=== PATIENT | female | born 1975 | race Two or more races ===

== ENCOUNTER → 2020-07-28 15:06 | Outpatient (BNVA) | payer MEDICAID, SELFPAY | PROVIDERS: PCP Nurse Practitioner Family; Referring Provider Nurse Practitioner Family; Visit Provider Obstetrics & Gynecology | DX: Z01.419 Encounter for gynecological examination (general) (routine) without abnormal findings (principal) | CPT/HCPCS: 99213 ==

== ENCOUNTER 2021-09-13 14:58 | Outpatient (REF) | payer MEDICAID, SELFPAY ==
--- NOTE | ~2021-09-13 | XR_ITS ---
EXAMINATION: XR FOOT, RIGHT CLINICAL INFORMATION: Right foot pain COMPARISON: None TECHNIQUE: AP, lateral, and oblique views of the right foot. FINDINGS: The bones and soft tissues are normal. No fracture. Alignment is anatomic. Joint spaces are maintained. XR/XR foot RT min 3V IMPRESSION: Normal right foot.
== END 2021-09-13 14:59 | disposition home or self-care (01) ==
LOC: HO.XRAY 14:58
PROVIDERS: Absent Provider Nurse Practitioner Family; PCP Nurse Practitioner Family; Visit Provider Registered Nurse Community Health
DX: M79.671 Pain in right foot (principal)
CPT/HCPCS: 73630

== ENCOUNTER → 2021-10-02 10:50 | Outpatient (BNVA) | payer MEDICAID, SELFPAY | PROVIDERS: PCP Nurse Practitioner Family; Referring Provider Nurse Practitioner Family; Visit Provider Nurse Practitioner | DX: K21.9 Gastro-esophageal reflux disease without esophagitis (principal); K59.00 Constipation, unspecified; D64.9 Anemia, unspecified; R14.0 Abdominal distension (gaseous); Z86.19 Personal history of other infectious and parasitic diseases; Z80.0 Family history of malignant neoplasm of digestive organs | CPT/HCPCS: 99212 ==

== ENCOUNTER 2022-03-21 12:04 | Outpatient (REF) | payer MEDICAID, SELFPAY ==
--- NOTE | ~2022-03-21 | US_ITS ---
EXAMINATION: US THYROID CLINICAL INFORMATION: Patient feels lump in neck over thyroid, nontoxic nodule. COMPARISON: None TECHNIQUE: Linear transducer grayscale and color Doppler examination with attention to the region of the thyroid. FINDINGS: SIZE: Measurements of the thyroid lobes and nodules are given in sagittal, anteroposterior and transverse dimensions respectively. Right Thyroid Lobe: 4.5 x 1.8 x 1.9 cm, volume 8.1 mL. Parenchyma: The gland echotexture is homogeneous. Thyroid vascularity is normal. Left Thyroid Lobe: 4.1 x 1.5 x 1.7 cm, volume 5.3 mL. Parenchyma: The gland echotexture is homogeneous. Thyroid vascularity is normal. Isthmus: 0.3 cm in maximum AP dimension. Estimated total number of nodules greater than or equal to 1 cm: 2. Liquid Compounder nodules are described as follows: 1. Location: Right mid. Size: 0.8 x 0.5 x 0.6 cm, volume 0.13 mL. Nodule characteristics: Composition: Spongiform (0). Echogenicity: Anechoic (0). Shape: Not taller than wide (0). Margins: Smooth (0). Echogenic Foci: None (0). ACR TI-RADS total points: 0 ACR TI-RADS category: 1 2. Location: Right inferior. Size: 0.4 x 0.5 x 0.5 cm, volume 0.05 mL. Nodule characteristics: Composition: Spongiform (0). Echogenicity: Anechoic (0). Shape: Not taller than wide (0). Margins: Smooth (0). Echogenic Foci: None (0). ACR TI-RADS total points: 0 ACR TI-RADS category: 1 3. Location: Left mid. Size: 1.7 x 1.1 x 1.1 cm, volume 1.1 mL. Nodule characteristics: Composition: Mixed cystic and solid (1). Echogenicity: Cannot be determined (1). Shape: Not taller than wide (0). Margins: Smooth (0). Echogenic Foci: Comet-tail artifacts (0). ACR TI-RADS total points: 2 ACR TI-RADS category: 2 4. Location: Left inferior. Size: 1 x 0.5 x 0.7 cm, volume 0.18 mL. Nodule characteristics: Composition: Mixed cystic and solid (1). Echogenicity: Cannot be determined (1). Shape: Not taller than wide (0). Margins: Smooth (0). Echogenic Foci: None (0). ACR TI-RADS total points: 2 ACR TI-RADS category: 2 5. Location: Isthmus. Size: 0.4 x 0.2 x 0.4 cm, volume 0.02 mL. Nodule characteristics: Composition: Cystic(0). ACR TI-RADS total points: 0 ACR TI-RADS category: 1 NODES: No lymphadenopathy is seen in the tissue surrounding the thyroid gland. US/US thyroid IMPRESSION: Normal heterogeneity and vascularity of the thyroid gland with multiple TR 1 and 2 nodules, for which no FNA nor imaging follow-up is indicated following the ACR guidelines below. ACR TI-RADS RECOMMENDATION REFERENCE: Ultrasound-guided fine-needle aspiration, followup ultrasound, no further follow up. * TR1 (0 point) and TR 2 (2 points): No FNA or follow up * TR3 (3 points): FNA if more than or equal to 2.5 cm in maximum dimension, followup ultrasound in 1, 3 and 5 years if 1.5 to 2.4 cm in maximum dimension. * TR4 (4-6 points): FNA if more than or equal to 1.5 cm in maximum dimension, followup ultrasound in 1, 2, 3 and 5 years if 1 to 1.4 cm in maximum dimension. * TR5 (more than or equal to 7 points): FNA if more than or equal to 1 cm in maximum dimension, followup ultrasound every year for 5 years if 0.5 to 0.9 cm in maximum dimension. * TR3, TR4 or TR5 nodules that are below the size threshold for follow up receive no follow up.
== END 2022-03-21 12:05 | disposition home or self-care (01) ==
LOC: HO.US 12:04
PROVIDERS: Visit Provider Nurse Practitioner Family
DX: E04.1 Nontoxic single thyroid nodule (principal)
CPT/HCPCS: 76536

== ENCOUNTER 2022-06-13 11:58 | Outpatient (REF) | payer MEDICAID, SELFPAY | END 2022-06-13 11:59 | disposition home or self-care (01) | LOC: HO.LAB 11:58 | PROVIDERS: PCP Nurse Practitioner Family; Visit Provider Nurse Practitioner | DX: R11.2 Nausea with vomiting, unspecified (principal); K21.9 Gastro-esophageal reflux disease without esophagitis; A04.8 Other specified bacterial intestinal infections; K59.00 Constipation, unspecified; D64.9 Anemia, unspecified; R14.0 Abdominal distension (gaseous); Z79.899 Other long term (current) drug therapy | CPT/HCPCS: 36415; 86003; 99212 ==

== ENCOUNTER 2022-06-21 16:22 | Outpatient (REF) | payer MEDICAID, SELFPAY ==
[2022-06-22 07:48] LABS: FIT1 NEGATIVE (NEGATIVE)
[2022-06-22 07:49] LABS: FIT Int Ctl YES; FIT2 NEGATIVE (NEGATIVE)
== END 2022-06-21 16:23 | disposition home or self-care (01) ==
LOC: HO.LNP 16:22
PROVIDERS: Visit Provider Nurse Practitioner
DX: A04.8 Other specified bacterial intestinal infections (principal); R11.0 Nausea
CPT/HCPCS: 82274; 87338

== ENCOUNTER 2022-06-26 15:14 | Outpatient (REF) | payer MEDICAID, SELFPAY ==
[2022-06-26 18:16] LABS: Free T4 (Free Thyroxine) 0.93 ng/dL (0.71-1.85); Thyroid Stimulating Hormone 0.98 uIU/mL (0.32-4.0)
== END 2022-06-26 15:15 | disposition home or self-care (01) ==
LOC: HO.LAB 15:14
PROVIDERS: PCP Nurse Practitioner Family; Visit Provider Internal Medicine Endocrinology, Diabetes & Metabolism
DX: E04.2 Nontoxic multinodular goiter (principal)
CPT/HCPCS: 36415; 84439; 84443; 99202

== ENCOUNTER 2022-07-16 12:01 | Outpatient (REF) | payer MEDICAID, SELFPAY ==
[2022-07-17 03:30] LABS: CT PCR NOT DETECTED (Not Detect.); NG PCR NOT DETECTED (Not Detect.)
== END 2022-07-16 12:02 | disposition home or self-care (01) ==
LOC: HO.LNP 12:01
PROVIDERS: Visit Provider Advanced Practice Midwife
DX: Z11.3 Encounter for screening for infections with a predominantly sexual mode of transmission (principal)
CPT/HCPCS: 87491; 87591

== ENCOUNTER 2022-08-21 09:08 | Outpatient (REF) | payer MEDICAID, SELFPAY ==
--- NOTE | 2022-08-21 09:31 | PM.OP ---
Brief Operative Note Date of Service: 08/21/22 Pre-op diagnosis: Multinodular Thyroid Procedure: Ultrasound was performed today of the Patient's thyroid. She has multiple subcentimeter well circumscribed nodules within the R lobe. The entire gland has a heterogenous appearance. Her L lobe contains a 1.6 cm partially cystic nodule. This nodule has a very small solid component. much less than 1 cm in diameter. I recommend FNA biopsy of this nodule only onc >2 cm. Surgeon: Lamar Dueñas, DO Was an Senior Technical Analyst used for this Procedure?: No Estimated blood loss (mL): 0
== END 2022-08-21 09:09 | disposition home or self-care (01) ==
LOC: HO.US 09:08
PROVIDERS: Visit Provider Internal Medicine Endocrinology, Diabetes & Metabolism
DX: E04.2 Nontoxic multinodular goiter (principal)
CPT/HCPCS: 76536

== ENCOUNTER → 2022-08-26 10:25 | Outpatient (BNVA) | payer MEDICAID, SELFPAY | PROVIDERS: Visit Provider Advanced Practice Midwife | DX: N92.6 Irregular menstruation, unspecified (principal); R23.2 Flushing | CPT/HCPCS: 99212 ==

== ENCOUNTER → 2022-09-04 11:55 | Outpatient (BNVA) | payer MEDICAID, SELFPAY | PROVIDERS: Visit Provider Internal Medicine Endocrinology, Diabetes & Metabolism | DX: E04.2 Nontoxic multinodular goiter (principal) | CPT/HCPCS: 99212 ==

== ENCOUNTER 2023-01-29 11:35 | Outpatient (REF) | payer MEDICAID, SELFPAY ==
--- NOTE | ~2023-01-29 | US_ITS ---
EXAMINATION: US THYROID CLINICAL INFORMATION: Multinodular goiter. COMPARISON: Ultrasound thyroid 03/21/2022. TECHNIQUE: Linear transducer grayscale and color Doppler examination with attention to the region of the thyroid. FINDINGS: SIZE: Measurements of the thyroid lobes and nodules are given in sagittal, anteroposterior and transverse dimensions respectively. Right Thyroid Lobe: 4.5 x 1.8 x 1.7 cm, volume 7.2 mL. Previously 4.5 x 1.8 x 1.9 cm, volume 8.1 mL. Parenchyma: The gland echotexture is heterogeneous. Thyroid vascularity is normal. Left Thyroid Lobe: 4.3 x 1.6 x 1.8 cm, volume 6.5 mL. Previously 4.1 x 1.5 x 1.7 cm, volume 5.3 mL. Parenchyma: The gland echotexture is homogeneous. Thyroid vascularity is increased. Isthmus: 0.6 cm in maximum AP dimension. Previously 0.3 cm. Estimated total number of nodules greater than or equal to 1 cm: 2. Chemical Project Engineer nodules are described as follows: 1. Location: Right mid. Size: 0.8 x 0.5 x 0.9 cm, volume 0.2 mL. Previously: 0.8 x 0.5 x 0.6 cm, volume 0.13 mL. Nodule characteristics: Composition: Solid/almost completely solid (2). Echogenicity: Cannot be determined (1). Shape: Not taller than wide (0). Margins: Smooth (0). Echogenic Foci: None (0). ACR TI-RADS total points: 3 Previous: 0 ACR TI-RADS category: 3 Previous: 1 Significant change in size (>/= 20% in 2 dimensions and minimal increase of 2 mm or 50% or greater increase in volume): Yes Change in features: Yes Change in ACR TI-RADS risk category: Yes 2. Location: Right inferior. Size: 0.7 x 0.5 x 0.6 cm, volume 0.1 mL. Previously: 0.4 x 0.5 x 0.5 cm, volume 0.05 mL. Nodule characteristics: Composition: Solid/almost completely solid (2). Echogenicity: Hyperechoic (1). Shape: Not taller than wide (0). Margins: Smooth (0). Echogenic Foci: None (0). ACR TI-RADS total points: 3 Previous: 0 ACR TI-RADS category: 3 Previous: 1 Significant change in size (>/= 20% in 2 dimensions and minimal increase of 2 mm or 50% or greater increase in volume): Yes Change in features: Yes Change in ACR TI-RADS risk category: Yes 3. Location: Left mid. Size: 1.8 x 1.3 x 1.2 cm, volume 1.5 mL. Previously: 1.7 x 1.1 x 1.1 cm, volume 1.1 mL. Nodule characteristics: Composition: Mixed cystic and solid (1). Echogenicity: Cannot be determined (1). Shape: Taller than wide (3). Margins: Smooth (0). Echogenic Foci: Punctate echogenic foci (3). ACR TI-RADS total points: 8 Previous: 2 ACR TI-RADS category: 5 Previous: 2 Significant change in size (>/= 20% in 2 dimensions and minimal increase of 2 mm or 50% or greater increase in volume): No Change in features: Yes Change in ACR TI-RADS risk category: Yes 4. Location: Left inferior. Size: 0.9 x 0.6 x 1.1 cm, volume 0.3 mL. Previously: 1.0 x 0.5 x 0.7 cm, volume 0.18 mL. Nodule characteristics: Composition: Mixed cystic and solid (1). Echogenicity: Cannot be determined (1). Shape: Not taller than wide (0). Margins: Smooth (0). Echogenic Foci: None (0). ACR TI-RADS total points: 2 Previous: 2 ACR TI-RADS category: 2 Previous: 2 Significant change in size (>/= 20% in 2 dimensions and minimal increase of 2 mm or 50% or greater increase in volume): Yes Change in features: No Change in ACR TI-RADS risk category: No 5. Location: Isthmus. Size: 0.4 x 0.3 x 0.4 cm, volume 0.02 mL. Previously: 0.4 x 0.2 x 0.4 cm, volume 0.02 mL. Nodule characteristics: Composition: Solid (2). Echogenicity: Hypoechoic (2). Shape: Not taller than wide (0). Margins: Smooth (0). Echogenic Foci: None (0). ACR TI-RADS total points: 4 Previous: 0 ACR TI-RADS category: 4 Previous: 1 Significant change in size (>/= 20% in 2 dimensions and minimal increase of 2 mm or 50% or greater increase in volume): No Change in features: Yes Change in ACR TI-RADS risk category: Yes NODES: No lymphadenopathy is seen in the tissue surrounding the thyroid gland. US/US thyroid IMPRESSION: 1. A 1.8 cm in maximal diameter left thyroid nodule meets ACR biopsy criteria and is amenable to ultrasound-guided biopsy, if clinically indicated and not already performed. 2. There is increased thyroid echotexture and vascularity, which can be associated with thyroiditis. ACR TI-RADS RECOMMENDATION REFERENCE: Ultrasound-guided fine-needle aspiration, followup ultrasound, no further follow up. * TR1 (0 point) and TR2 (2 points): No FNA or follow up. * TR3 (3 points): FNA if more than or equal to 2.5 cm in maximum dimension, followup ultrasound in 1, 3 and 5 years if 1.5 to 2.4 cm in maximum dimension. * TR4 (4-6 points): FNA if more than or equal to 1.5 cm in maximum dimension, followup ultrasound in 1, 2, 3 and 5 years if 1 to 1.4 cm in maximum dimension. * TR5 (more than or equal to 7 points): FNA if more than or equal to 1 cm in maximum dimension, followup ultrasound every year for 5 years if 0.5 to 0.9 cm in maximum dimension. * TR3, TR4 or TR5 nodules that are below the size threshold for followup receive no follow up.
== END 2023-01-29 11:36 | disposition home or self-care (01) ==
LOC: HO.US 11:35
PROVIDERS: PCP Registered Nurse; Visit Provider Registered Nurse
DX: E04.2 Nontoxic multinodular goiter (principal)
CPT/HCPCS: 76536

== ENCOUNTER 2023-03-25 14:40 | Outpatient (REF) | payer MEDICAID, SELFPAY ==
--- NOTE | ~2023-03-25 | XR_ITS ---
EXAMINATION: XR HIP, LEFT CLINICAL INFORMATION: Lumbar pain with radiation down left leg COMPARISON: None available. TECHNIQUE: Two views of the left hip. FINDINGS: Bones and soft tissues are normal. No fracture. Alignment is anatomic. Hip joint space is maintained. XR/XR hip LT min 2V IMPRESSION: No bony abnormality.
--- NOTE | ~2023-03-25 | XR_ITS ---
EXAMINATION: XR LUMBOSACRAL SPINE WITH OBLIQUES CLINICAL INFORMATION: Lumbar pain with radiation down left leg COMPARISON: Same-day left hip TECHNIQUE: AP, both oblique, and lateral views of the lumbar spine. Lateral view of the lumbosacral junction. FINDINGS: There are 5 nonrib-bearing lumbar-type vertebral bodies. The height of the vertebral bodies is well-maintained. There is no significant disc space narrowing. Small anterior marginal osteophytes are seen from L3 through L5. Degenerative facet joint disease seen at L5-S1. There is also the usual lumbar lordosis which can be seen with muscle spasm. Surgical clips in the right upper quadrant are consistent with prior cholecystectomy. XR/XR lumbar spine 4V min IMPRESSION: 1. Muscle spasm. 2. Degenerative facet joint disease at L5-S1. 3. No significant disc space narrowing of the lumbar spine.
== END 2023-03-25 14:41 | disposition home or self-care (01) ==
LOC: HO.XRAY 14:40
PROVIDERS: PCP Registered Nurse; Visit Provider Registered Nurse
DX: M54.50 Low back pain, unspecified (principal); M79.605 Pain in left leg
CPT/HCPCS: 72110; 73502

== ENCOUNTER 2023-04-23 14:07 | Outpatient (RCR) | payer MEDICAID, SELFPAY ==
--- NOTE | 2023-04-23 15:05 | MHC.PT.EP ---
[facility] [place] Office [place] Office [place] Office [address] [phone] F: [phone] F: [phone] F: [phone] F: [phone] Physical Therapy Plan of Care Date of Evaluation: Date of Surgery: N/A Diagnosis: other muscle spasm Muscle spasm of neck Assessment: Pt is a pleasant 47yo F who presents to PT with L neck pain. She presents to PT with current impairments in pain, decreased cervical ROM, decreased R shoulder strength, soft tissue restrictions, and impaired posture. She is TTP throughout L UT, levator, cervical PS, and occipitals. She is limited functionally by looking up/down, looking toward the left, and sleeping. She is an excellent candidate for skilled PT in order to address current impairments to facilitate return to PLOF. She is recommended to be seen 2x/week for 4 weeks and will be reassessed at that time. Frequency and Duration: The patient will be seen 2x/week for 4 weeks Short Term Goals: Pt will be I with HEP to promote self management of symptoms Pt will improve L cervical rotation by at least 10 degrees Pt will demonstrate improvements in postural awareness throughout the day School Librarian Goals: Pt will achieve full ROM all planes of cervical spine with minimal to no discomfort Pt will perform overhead ADLs with minimal to no pain or compensation Pt will perform prolonged sitting with improved postural awareness Treatment Plan: Modalities to reduce pain, spasms and effusion. Manual therapy to restore motion and function. Therapeutic exercise to improve strength and flexibility. Neuromuscular re-education for posture and balance. Therapeutic activities to return to functional activities of daily living. Electronically signed by: Regina Medina, PT, DPT Please sign and return to therapist. Thank you for your referral.
--- NOTE | 2023-06-13 13:51 | MHC.PT.DC ---
[facility] [place] Office [place] Office [place] Office [address] Sanju [address]ts [address] [phone] F: [phone] F: [phone] F: [phone] F: [phone] Physical Therapy Discharge Report Diagnosis: other muscle spasm Muscle spasm of neck Date of Surgery: N/A Date of Evaluation: 04/23/23 Date of Discharge: 06/13/23 Treatments to Date: 1 Cancellations to Date: 1 No Shows to Date: 1 Discharge Status: Visit Non-compliance Discharge Summary: Pt was seen for initial PT evaluation on 04/23/23. She has not attended since initial PT evaluation. Pt is being D/C from skilled PT as she has not attended in > 30 days. Pt current level of function unknown at this time. Electronically signed by: Rgeina Medina, PT, DPT Please sign and return to therapist. Thank you for your referral.
== END 2023-06-13 13:50 | disposition home or self-care (01) ==
LOC: HO.PT 14:07
PROVIDERS: PCP Registered Nurse; Visit Provider Registered Nurse
DX: M62.838 Other muscle spasm (principal)
CPT/HCPCS: 97161

== ENCOUNTER 2023-06-24 14:51 | Outpatient (AMB) | payer MEDICAID, SELFPAY ==
--- NOTE | 2023-06-24 14:55 | A.OFFVIS_ITS ---
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 Required: Yes Allergies sumatriptan [From IMITREX] Allergy (Mild, Verified 09/04/22 12:00) NAUSEA Medication List - Last Reconciled 06/24/23 by Eugene Pond MD acetaminophen (Tylenol Extra Strength) 500 mg PO Q6H PRN amitriptyline 25 mg PO DAILY ascorbic acid (vitamin C) (Vitamin C) 500 mg PO bisacodyl 10 mg (2 x 5 mg) PO BEDTIME eletriptan (Relpax) 40 mg PO Q2-4H PRN ferrous sulfate 324 mg PO DAILY lidocaine 5% (Lidoderm) 0 patches topical loratadine 10 mg PO QAM PRN lorazepam 1 mg PO DAILY PRN metoprolol succinate ER 75 mg PO QAM metronidazole 0.75% appl topical BID multivitamin with iron-mineral 1 tab PO DAILY omeprazole 40 mg PO DAILY 30 days paroxetine HCl (Paxil) 20 mg PO DAILY rizatriptan 10 mg PO DIRECTED PRN simethicone 180 mg PO QID sodium chloride 0.65% (Deep Sea Nasal) 2 sprays intranasal QID PRN sucralfate (Carafate) 10 mL PO QAM vitamin E (dl, acetate) 180 mg PO QAM HPI HPI Comments History of Present Illness Details Katty was referred here for symptoms of palpitations. She presents here with her who is central office associate. Did declined a certified central office associate. Patient is currently on metoprolol for many years and recently a 75 mg daily of extended-release. Patient presents here because she has been having intermittent symptoms of palpitations. She describes as infrequent symptoms which she would feel sudden onset palpitation and this care. She has associated shortness of breath with it. There is no clear pattern to it. She denies any exacerbating factors. No triggers. She denies any relieving factors. Symptoms can last for few minutes. And then the subside. She does have prior history of anxiety. She denies any symptoms exertional chest pain or shortness of breath. Denies any lightheadedness, syncope. Denies any heart failure symptoms. [facility] Medical History Anxiety and depression Gastritis History of Helicobacter pylori infection History of migraine Hx of perforation of tympanic membrane Multinodular goiter (nontoxic) Surgical History H/O breast biopsy H/O colonoscopy H/O esophagogastroduodenoscopy History of ear surgery Hx of section Hx of cholecystectomy Hx of tubal ligation Family History Father Family hx of hypertension Sister Hx of thyroid cancer History of colon cancer Family hx of hypertension History of breast cancer in female, Onset Age: 42 Maternal Aunt History of breast cancer in female Mother Hx of emphysema Brother Lymphoma Social History Household Members: Spouse and Children Housing: Apartment Alcohol intake: never Patient Tobacco Use Status: Never used Tobacco Current occupational status: disabled Sexual orientation: Straight/Heterosexual Gender identity: Female Female Reproductive History Menstrual Age of Menarche: 11 Review of Systems Const Denies chills, Denies daytime sleepiness, Denies fatigue, Denies fever(s), Denies frequent falls, Denies poor appetite, Denies snoring, Denies stops breathing during sleep, Denies weakness, Denies weight gain and Denies weight loss Eyes Denies loss of vision ENT Denies dizziness and Denies hearing loss Card Denies chest pain, Denies claudication, Denies leg edema, Denies lightheadedness, Denies palpitations, Denies dyspnea, Denies dyspnea on exertion and Denies orthopnea Resp Denies cough, Denies excessive phlegm production, Denies dyspnea, Denies dyspnea on exertion, Denies snoring and Denies wheezing GI Denies abdominal pain, Denies hematochezia, Denies change in bowel habits, Denies nausea and Denies vomiting Denies urinary frequency and Denies dysuria Musc Denies arthralgias, Denies muscle weakness, Denies numbness and Denies other (frequent falls) Skin/Breast Denies nail changes and Denies rash Neuro Denies Abnormal speech present, Denies dizziness, Denies frequent falls, Denies loss of vision, Denies memory loss, Denies numbness and Denies weakness Psych Denies depression and Denies memory loss Endo Denies fatigue and Denies palpitations Jeremiah/Lymph Reports easy bruising and Reports other (anemia) Aller/Immun Denies wheezing Physical Exam Vital Signs: Last Vital Signs Pulse 59 06/24/23 14:56 BP 120/80 06/24/23 14:56 BMI result Body Mass Index 21.4 Const General: cooperative, comfortable, no acute distress, alert, awake and Physically active Nutritional Appearance: thin Orientation/consciousness: patient oriented x3 Limitations: no limitations HEENT Head: Yes normocephalic and Yes atraumatic Neck Neck: Yes trachea midline, Yes supple and Yes no JVD Resp Effort & Inspection: normal respiratory effort Auscultation: clear to auscultation bilaterally Cardio Jugular venous distension: no JVD Palpation: normal PMI Rate: regular rate Rhythm: regular rhythm Heart sounds: S1 normal heart sound present, S2 normal heart sound present, no click, no gallops, no murmurs and no rubs GI Auscultation: normal bowel sounds Skin General skin exam: no rashes or lesions noted Neuro General: patient oriented x3 and no focal motor deficits Speech: No Abnormal speech present Extrem General: Yes no clubbing, cyanosis or edema Office Procedures EKG Details: EKGs shows sinus bradycardia otherwise normal EKG [id number], Complete Assessment & Plan Assessment & Plan (1) Palpitations: Code(s): R00.2 - Palpitations Plan: Patient's symptoms of palpitation most likely related extra systoles such as PVCs. This needs to be proven. Will obtain given the frequency of symptoms a 30 day event monitor to assess for symptoms and frequency. Will also obtain echocardiogram to evaluate for structural heart disease. Further treatment based on the findings. She is currently on metoprolol therapy and heart rate is on the slower side. Will avoid empirically increasing the therapy at this point time unless she has very frequent PVCs may need alternative form of therapy. Advised stress mitigation strategies. Avoidance of stimulants was discussed. Follow up in the clinic in 2 months time, sooner p.r.n.. Thank you for allowing me to partake in her care Orders: Orders CA echo transthoracic complete 06/24/23 R00.2 - Palpitations ECG 30 day event monitor 06/24/23 R00.2 - Palpitations Coding Level of Care Code New Pt Level 3 (06998) Diagnoses Palpitations R00.2 CPT Codes EKG - CPT: 02620-[id number], Complete ([id number])
[2023-06-24 14:56] VITALS: BP 120/80; PULSE 59; BMI 21.4
== END 2023-06-24 15:22 | disposition home or self-care (01) ==
PROVIDERS: PCP Registered Nurse; Referring Provider Registered Nurse; Visit Provider Internal Medicine Cardiovascular Disease
DX: R00.2 Palpitations (principal)
CPT/HCPCS: 93010; 99203

== ENCOUNTER → 2023-06-24 14:51 | Outpatient (BNVA) | payer MEDICAID, SELFPAY | PROVIDERS: PCP Registered Nurse; Referring Provider Registered Nurse; Visit Provider Internal Medicine Cardiovascular Disease | DX: R00.2 Palpitations (principal); Z79.899 Other long term (current) drug therapy | CPT/HCPCS: 93005; 99202 ==

== ENCOUNTER → 2023-07-23 10:15 | Outpatient (REF) | payer MEDICAID, SELFPAY ==
--- NOTE | 2023-07-23 10:20 | CA_ITS ---
Transthoracic Echocardiogram Patient (Last, First, Middle): Katty Ram, Gender: Female Date of : 1975 Age: 47 Procedure Date: 07/23/2023 Procedure Type: Transthoracic Echocardiogram Location: OP Height: 157.48 cm Weight: 53.52 kg BSA: 1.53 m2 Heart Rate: bpm BP: 148 / 82 mmHg Tableman: MICHELLE Referring MD: Eugene Pond MD Spare Person: Eugene Pond MD Symptoms: R00.2 - Palpitations Study Quality: Adequate ECG Rhythm: Sinus Conclusions: - Normal study Findings Left Ventricle Normal left ventricular size, thickness, and systolic function. The visually estimated ejection fraction is between 65-70%. Diastolic function is normal for age. Peak GLS is -19%, within normal limits. Right Ventricle Normal right ventricular cavity size and systolic function. Atria The left atrium is likely dilated. There is no evidence of interatrial shunt. The right atrium is normal in size. Aortic Valve Normal aortic valve structure and function. There is no aortic valve stenosis. There is no aortic valve regurgitation. Mitral Valve Normal mitral valve structure and function. There is trace mitral valve regurgitation. There is no mitral valve stenosis. Pulmonic Valve The pulmonic valve is normal. There is trace pulmonic valve regurgitation. Tricuspid Valve Normal tricuspid valve structure. There is trace tricuspid valve regurgitation. The right ventricular systolic pressure is normal. The right ventricular systolic pressure is 21 mmHg. Normal right atrial pressure. There is no evidence of pulmonary hypertension. Great Vessels All visible segments of the aorta are normal in size. The visualized portions of the pulmonary artery and branches are normal. Venous The inferior vena cava is normal in size and collapses greater than 50% with inspiration. Pericardium/Pleural There is no evidence of pericardial effusion. Prior Study Comparison No prior study available for comparison. Measurements 2D Linear Measurements IVSd: 0.82 0.6-0.9/0.6-1.0 cm LVIDd: 4.51 3.9-5.3/4.2-5.9 cm LVIDd Index: 2.95 2.4-3.2/2.2-3.1 cm/m2 LVIDs: 2.74 2.0-3.6 cm LVPWd: 0.89 0.7-1.1 cm LA Diam: 2.80 2.7-3.8/3.0-4.0 cm LAIDs Index: 1.83 1.5-2.3 cm/m2 LV Mass: 154.74 67-162/88-224 g LV Mass Index: 101.14 43-95/49-115 g/m2 LVOT Diam: 1.90 3.0+(-)1.3 cm 2D Systolic Function EF 4C: 63.40 >55% EF 2C: 69.70 >55% EF BiP: 66.40 >55% Mitral Valve MV Pk E: 0.78 MV PK A: 0.47 MV Decel Time: 179.00 E/A: 1.70 E'Lateral: 11.60 E'Medial: 8.70 E/E' Med: 9.00 E/E' Lat: 6.70 PHT: 52.00 MVA PHT: 4.23 Decel [place]: 4.36 Aortic Valve AoV Pk Alvarez: 1.42 AoV Mn Alvarez: 1.05 AoV VTI: 0.36 AoV Pk Grad: 8.00 Aov Mn Grad: 5.00 YONIS Cont.VTI: 1.74 LVOT LVOT Pk Alvarez: 1.04 LVOT Mn Alvarez: 0.69 LVOT VTI: 0.22 LVOT Pk Grad: 4.00 LVOT Mn Grad: 2.00 LVOT Diam: 1.90 LVOT Area: 2.84 Diastolic Function MV Pk E: 0.78 MV Pk A: 0.47 E/A: 1.70 E'Medial: 8.70 E/E' Med: 9.00 E' Laterial: 11.60 E/E' Lat: 6.70 Right Ventricle TAPSE (mm): 24.30 TVS' Alvarez: 13.10 Tricuspid Valve TR Pk Alvarez: 2.11 TR Pk Grad: 18.00 RA Press: 3.00 RVSP: 21.00 Great Vessels Aorta Sinus of Valsalva: 2.74 2.0-3.[address] [place]: 2.23 1.7-3.4 cm Ao Asc: 2.80 2.1-3.4 cm Ao Arch: 2.30 Updated in Other Vendor System with Status of Final Eugene Pnod MD electronically signed on 07/24/2023 11:32:57 AM with status of Final
--- NOTE | 2023-07-23 10:20 | HM_ITS ---
Cardiac event monitor Indication: Palpitations Technique: Patient was hooked up to cardiac event monitor on 07/23/2023 for total period of 30 days. Compliance rate is about 92%. Quality of rhythm strips is good Findings: Baseline was normal sinus rhythm with no significant pauses noted. Maximum heart rate of 110 beats per minute minimal heart rate 57 beats per minute. Rare PACs were noted. There were couple of short runs of atrial ectopic rhythm which could represent paroxysmal atrial tachycardia. Patient activated the symptom button 10 times without reporting any significant symptoms correlating with mostly sinus rhythm with 1 episode correlating with isolated PACs. Conclusion: 1. Baseline was normal sinus rhythm with no pauses 2. Rare PACs noted with short runs of PAT 3. Patient reported events mostly correlated with sinus rhythm MTDD
== END ==
LOC: HO.CARD 10:15
PROVIDERS: PCP Registered Nurse; Visit Provider Internal Medicine Cardiovascular Disease
DX: R00.2 Palpitations (principal)
CPT/HCPCS: 93270; 93306; 93356

== ENCOUNTER → 2023-07-23 10:20 | Outpatient (BNV) | payer MEDICAID, SELFPAY | PROVIDERS: PCP Registered Nurse; Visit Provider Internal Medicine Cardiovascular Disease | DX: I49.1 Atrial premature depolarization (principal) | CPT/HCPCS: 93272; 93306 ==

== ENCOUNTER 2023-09-04 13:46 | Outpatient (AMB) | payer MEDICAID, SELFPAY ==
[2023-09-04 13:54] VITALS: BP 120/72; PULSE 73; BMI 22.0
--- NOTE | 2023-09-04 13:54 | A.OFFVIS_ITS ---
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 Allergies sumatriptan [From IMITREX] Allergy (Mild, Verified 09/04/22 12:00) NAUSEA Medication List - Last Reconciled 09/04/23 by Linda Dewitt NP-C acetaminophen (Tylenol Extra Strength) 500 mg PO Q6H PRN amitriptyline 25 mg PO DAILY ascorbic acid (vitamin C) (Vitamin C) 500 mg PO bisacodyl 10 mg (2 x 5 mg) PO BEDTIME eletriptan (Relpax) 40 mg PO Q2-4H PRN ferrous sulfate 324 mg PO DAILY lidocaine 5% (Lidoderm) 0 patches topical loratadine 10 mg PO QAM PRN lorazepam 1 mg PO DAILY PRN metoprolol succinate ER 75 mg PO QAM metronidazole 0.75% appl topical BID multivitamin with iron-mineral 1 tab PO DAILY omeprazole 40 mg PO DAILY 30 days paroxetine HCl (Paxil) 20 mg PO DAILY rizatriptan 10 mg PO DIRECTED PRN simethicone 180 mg PO QID sodium chloride 0.65% (Deep Sea Nasal) 2 sprays intranasal QID PRN vitamin E (dl, acetate) 180 mg PO QAM HPI f/u after testing HPI Details Katty is a 47-year-old female with past medical history of hypertension, anemia who is being evaluated for heart palpitations. She recently underwent a cardiac event monitor and echocardiogram and now presents for follow-up. Today she reports that she continues to notice heart palpitations. She describes it to me as a sudden rapid heartbeat lasting less than a minute and going back to normal. She says this had can happen 2 to 3 times a day. She does not know of any aggravating factors. She says it does not bother her too much. She has been taking her metoprolol as directed. No shortness of breath, chest discomfort, presyncope, syncope, PND, orthopnea or edema. is present. [facility] Medical History Multinodular goiter (nontoxic) History of Helicobacter pylori infection Gastritis Anxiety and depression History of migraine Hx of perforation of tympanic membrane Surgical History H/O esophagogastroduodenoscopy H/O colonoscopy H/O breast biopsy History of ear surgery Hx of tubal ligation Hx of section Hx of cholecystectomy Family History Father Family hx of hypertension Sister Hx of thyroid cancer History of colon cancer Family hx of hypertension History of breast cancer in female, Onset Age: 42 Maternal Aunt History of breast cancer in female Mother Hx of emphysema Brother Lymphoma Social History Household Members: Spouse and Children Housing: Apartment Alcohol intake: never Patient Tobacco Use Status: Never used Tobacco Current occupational status: disabled Sexual orientation: Straight/Heterosexual Gender identity: Female Female Reproductive History Menstrual Age of Menarche: 11 Review of Systems Const All systems reviewed & are unremarkable except as noted in HPI and below ENT Denies dizziness Card Denies chest pain, Denies chest pain at rest, Denies chest pain with activity, Reports rapid heart rate, Denies pedal edema, Denies edema, Denies leg edema, Denies lightheadedness, Denies palpitations, Denies dyspnea, Denies dyspnea on exertion and Denies orthopnea Resp Denies cough, Denies dyspnea and Denies dyspnea on exertion GI Denies hematochezia and Denies change in stool character Musc Denies abnormal gait, Reports limited range of motion, Reports muscle cramps, Denies muscle weakness, Denies numbness, Denies radiating pain into limb, Denies stiffness and Denies tingling Neuro Denies abnormal gait, Denies dizziness, Denies numbness and Denies tingling Endo Denies palpitations Physical Exam Vital Signs: Last Vital Signs Pulse 73 09/04/23 13:54 BP 120/72 09/04/23 13:54 BMI result Body Mass Index 22.0 Const General: cooperative, healthy appearing, comfortable and no acute distress Orientation/consciousness: patient oriented x3 Neck Neck: Yes normal visual inspection Resp Effort & Inspection: normal respiratory effort Auscultation: clear to auscultation bilaterally, no crackles, no rales, no rhonchi and no wheezes Cardio Jugular venous distension: no JVD Rate: regular rate Rhythm: regular rhythm Heart sounds: S1 normal heart sound present, S2 normal heart sound present, no murmurs and no rubs Neuro General: patient oriented x3 Extrem General: Yes normal to inspection and No no pedal edema Psych Appearance: grossly normal Mental Status: mental status grossly normal Speech and movement: Normal speech and movement present Assessment & Plan Assessment & Plan (1) Palpitations: Code(s): R00.2 - Palpitations Plan: Reports of heart palpitations, brief rapid heartbeat lasting less than 1 minute and resolving. Cardiac event monitor done for 30 days starting 07/23/2023 showing sinus rhythm, heart rate range 11/05/2056, rare PACs, short runs of atrial ectopy consistent with paroxysmal atrial tachycardia. Patient activated symptom button at times with sinus rhythm and once with isolated PAC. Her description of her palpitations seems consistent with short PAT runs. She has had no episodes lasting greater than 1 minute. She says this can happen a few times daily. She is currently on metoprolol XL 75 mg daily. Will increase her metoprolol up to 100 mg daily. Reviewed the need for good hydration, avoidance of stimulants, caffeine reduction, activity as tolerated. Diagnosis of atrial tach reviewed with her and she states understanding. Emergency care if needed for sustained rapid palpitations. Cardiology follow-up in 3 months, sooner if needed to reassess control of palpitation. (2) Atrial tachycardia: Code(s): I47.19 - Other supraventricular tachycardia (3) Hypertension: Code(s): I10 - Essential (primary) hypertension Qualifiers: Hypertension type: primary hypertension Qualified Code(s): I10 - Essential (primary) hypertension Plan: Normal at present. Will be increasing metoprolol as above. Medications: New metoprolol succinate ER 100 mg PO DAILY 90 tabs 1RF Patient Instructions: Time spent on chart review, documentation, interview, assessment Coding Level of Care Code Est Pt Level 3 (04013) Diagnoses Palpitations R00.2 Atrial tachycardia I47.19 Primary hypertension I10 Hypertension type: primary hypertension Time Spent (min) 24
== END 2023-09-04 14:31 | disposition home or self-care (01) ==
PROVIDERS: PCP Registered Nurse; Visit Provider Nurse Practitioner Family
DX: R00.2 Palpitations (principal); I47.19 Other supraventricular tachycardia; I10 Essential (primary) hypertension
CPT/HCPCS: 99213

== ENCOUNTER → 2023-09-04 13:46 | Outpatient (BNVA) | payer MEDICAID, SELFPAY | PROVIDERS: PCP Registered Nurse; Visit Provider Nurse Practitioner Family | DX: R00.2 Palpitations (principal); I47.19 Other supraventricular tachycardia; I10 Essential (primary) hypertension; D64.9 Anemia, unspecified | CPT/HCPCS: 99212 ==

== ENCOUNTER 2023-12-29 14:12 | Outpatient (AMB) | payer MEDICAID, SELFPAY ==
--- NOTE | 2023-12-29 14:18 | A.OFFVIS_ITS ---
Intake Vital Signs 12/29/23 14:19 Height 5 ft 2 in Weight 123 lb 0.287 oz BMI 22.5 BP 124/82 Blood Pressure Location Lt brachial Position Sitting Pulse 68 Pulse Source Pulse Oximeter Intake Visit Reasons: r/s 3 mos followup Chassis Mechanic Required: No Hand Woven Carpet And Rug Mender: Hand Woven Carpet And Rug Mender Present Allergies sumatriptan [From IMITREX] Allergy (Mild, Verified 12/29/23 14:21) NAUSEA Medication List - Last Reconciled 12/29/23 by Linda Dewitt GAS CUTTING MACHINE OPERATOR-C acetaminophen (Tylenol Extra Strength) 500 mg PO Q6H PRN amitriptyline 25 mg PO DAILY ascorbic acid (vitamin C) (Vitamin C) 500 mg PO bisacodyl 10 mg (2 x 5 mg) PO BEDTIME eletriptan (Relpax) 40 mg PO Q2-4H PRN ferrous sulfate 324 mg PO DAILY lidocaine 5% (Lidoderm) 0 patches topical loratadine 10 mg PO QAM PRN metoprolol succinate ER 100 mg PO DAILY metronidazole 0.75% appl topical BID multivitamin with iron-mineral 1 tab PO DAILY omeprazole 40 mg PO DAILY paroxetine HCl (Paxil) 20 mg PO DAILY rizatriptan 10 mg PO DIRECTED PRN simethicone 180 mg PO QID sodium chloride 0.65% (Deep Sea Nasal) 2 sprays intranasal QID PRN vitamin E (dl, acetate) 180 mg PO QAM HPI r/s 3 mos followup HPI Details Katty is a 48-year-old female with past medical history of hypertension, heart palpitations with newer finding of paroxysmal atrial tach, treated with metoprolol who presents for follow-up. Today she reports that she continues to feel some brief heart palpitations but describes it as rare. She believes the metoprolol has helped her symptom. She will get a periodic flushing feeling which seems to be newer for her. No chest discomfort, shortness of breath, lightheadedness, presyncope, syncope, falls. No PND, orthopnea or edema. is present. He is assisting with German translation at their request. [facility] Medical History Multinodular goiter (nontoxic) History of Helicobacter pylori infection Gastritis Anxiety and depression History of migraine Hx of perforation of tympanic membrane Surgical History H/O esophagogastroduodenoscopy H/O colonoscopy H/O breast biopsy History of ear surgery Hx of tubal ligation Hx of section Hx of cholecystectomy Family History Father Family hx of hypertension Sister Hx of thyroid cancer History of colon cancer Family hx of hypertension History of breast cancer in female, Onset Age: 42 Maternal Aunt History of breast cancer in female Mother Hx of emphysema Brother Lymphoma Social History Household Members: Spouse and Children Housing: Apartment Alcohol intake: never Patient Tobacco Use Status: Never used Tobacco Current occupational status: disabled Sexual orientation: Straight/Heterosexual Gender identity: Female Female Reproductive History Menstrual Age of Menarche: 11 Review of Systems Const All systems reviewed & are unremarkable except as noted in HPI and below ENT Denies dizziness Card Denies chest pain, Denies chest pain at rest, Denies chest pain with activity, Reports rapid heart rate, Denies pedal edema, Denies edema, Denies leg edema, Denies lightheadedness, Denies palpitations, Denies dyspnea, Denies dyspnea on exertion and Denies orthopnea Resp Denies cough, Denies dyspnea and Denies dyspnea on exertion GI Denies hematochezia and Denies change in stool character Musc Denies abnormal gait, Denies limited range of motion, Denies muscle cramps, Denies muscle weakness, Denies numbness, Denies radiating pain into limb, Denies stiffness and Denies tingling Neuro Denies abnormal gait, Denies dizziness, Denies numbness and Denies tingling Endo Denies palpitations Physical Exam Vital Signs: Last Vital Signs Pulse 68 12/29/23 14:19 BP 124/82 12/29/23 14:19 BMI result Body Mass Index 22.5 Const General: cooperative, healthy appearing, comfortable and no acute distress Orientation/consciousness: patient oriented x3 Neck Neck: Yes normal visual inspection and Yes no JVD Resp Effort & Inspection: normal respiratory effort Auscultation: clear to auscultation bilaterally, no crackles, no rales, no rhonchi and no wheezes Cardio Jugular venous distension: no JVD Rate: regular rate Rhythm: regular rhythm Heart sounds: S1 normal heart sound present, S2 normal heart sound present, no murmurs and no rubs Neuro General: patient oriented x3 Extrem General: Yes normal to inspection, No no pedal edema and No calf tenderness Psych Appearance: grossly normal Mental Status: mental status grossly normal Speech and movement: Normal speech and movement present Assessment & Plan Assessment & Plan (1) Palpitations: Code(s): R00.2 - Palpitations Plan: Reports of heart palpitations, brief rapid heartbeat lasting less than 1 minute and resolving. Cardiac event monitor done for 30 days starting 07/23/2023 showing sinus rhythm, heart rate range 11/05/2056, rare PACs, short runs of atrial ectopy consistent with paroxysmal atrial tachycardia. Patient activated symptom button at times with sinus rhythm and once with isolated PAC. Her description of her palpitations seems consistent with short PAT runs. She has had no episodes lasting greater than 1 minute. Prior to medications it was happening a few times daily. Now she reports her palpitations are only rare. She is currently on metoprolol XL 100 mg daily. Will continue this dose. She drinks 2 caffeinated beverages daily. Recommended use of decaf or reduce her beverages down to 1 daily. Recommend good hydration, increasing her physical activity. Diagnosis of atrial tach reviewed with her and she states understanding. Emergency care if needed for sustained rapid palpitations. Cardiology follow-up in 6 months, sooner if needed to reassess control of palpitation. (2) Atrial tachycardia: Code(s): I47.19 - Other supraventricular tachycardia Plan: As above (3) Hypertension: Code(s): I10 - Essential (primary) hypertension Qualifiers: Hypertension type: primary hypertension Qualified Code(s): I10 - Essential (primary) hypertension Plan: Well controlled. No med changes made Plan Time spent on chart review, documentation, interview and assessment Coding Level of Care Code Est Pt Level 3 (36169) Diagnoses Palpitations R00.2 Atrial tachycardia I47.19 Primary hypertension I10 Hypertension type: primary hypertension Time Spent (min) 24
[2023-12-29 14:19] VITALS: BP 124/82; PULSE 68; BMI 22.5
== END 2023-12-29 14:43 | disposition home or self-care (01) ==
PROVIDERS: PCP Registered Nurse; Visit Provider Nurse Practitioner Family
DX: R00.2 Palpitations (principal); I47.19 Other supraventricular tachycardia; I10 Essential (primary) hypertension
CPT/HCPCS: 99213

== ENCOUNTER → 2023-12-29 14:12 | Outpatient (BNVA) | payer MEDICAID, SELFPAY | PROVIDERS: PCP Registered Nurse; Visit Provider Nurse Practitioner Family | DX: R00.2 Palpitations (principal); I47.19 Other supraventricular tachycardia; I10 Essential (primary) hypertension | CPT/HCPCS: 99212 ==

== ENCOUNTER 2024-03-12 09:17 | Outpatient (REF) | payer MEDICAID, SELFPAY ==
[2024-03-12 12:01] LABS: Hematocrit 35.8 % (37.0-47.0); Hemoglobin 11.9 g/dl (12.0-16.0); Mean Corpuscular HGB Conc 33.2 g/dl (31.0-35.0); Mean Corpuscular Hemoglobin 31.8 pg (27.0-33.0); Mean Corpuscular Volume 95.7 fL (80.0-98.0); Mean Platelet Volume 10.1 fL (9.4-12.3); Platelet Count 265 X10*3/uL (160-400); Red Blood Count 3.74 X10*6/uL (4.20-5.50); Red Cell Distribution Width 11.8 % (11.0-16.0); White Blood Count 7.2 X10*3/uL (4.8-10.8)
[2024-03-12 12:02] LABS: Alanine Aminotransferase 12 U/L (0-31); Albumin Level 4.3 g/dL (3.5-5.0); Alkaline Phosphatase 81 U/L (39-117); Anion Gap 11 (12-20); Aspartate Amino Transferase 16 U/L (5-31); Bilirubin Total 0.3 mg/dL (0.0-1.0); Blood Urea Nitrogen 16 mg/dL (9-16); Calcium 9.4 mg/dL (8.4-10.2); Carbon Dioxide 28 mmol/L (22-29); Chloride 108 mmol/L (96-108); Cholesterol 216 mg/dL (<200); Estimated Glomerular Filt Rate > 60; Glucose Random 113 mg/dL (60-115); HDL Cholesterol 41 mg/dL (>40); Iron 61 mcg/dL (30-160); LDL Cholesterol Calculated 149 mg/dL (<100); Percent Iron Saturation 25 % (15-50); Potassium 3.8 mmol/L (3.3-5.1); Sodium 143 mmol/L (135-145); Total Iron Binding Capacity 245 mcg/dL (228-428); Total Protein 7.5 g/dL (6.5-8.0); Triglycerides 133 mg/dL (<150); Unsaturated Iron Binding 184 ug/dL
[2024-03-12 12:07] LABS: Estimated Average Glucose 120 mg/dL; Hemoglobin A1c % 5.8 % (<6.0)
[2024-03-12 12:19] LABS: Ferritin 185 ng/mL (10-250); TSH reflex Free T4 1.27 uIU/mL (0.32-4.0)
[2024-03-13 10:20] LABS: Syphilis Screen Nonreactive (Nonreactive)
[2024-03-13 10:52] LABS: HBS Num1 129.15 mIU/mL (0-7.99); HBsAGNum1 0.29 S/CO (0.00-0.99); HIV AB/AG Nonreactive (Nonreactive); HIV Num 1 0.05 S/CO (0.00-0.99); Hepatitis B Core Antibody Nonreactive (Nonreactive); Hepatitis B Surface Antigen Negative (Negative); ~HepC Num1 0.12 S/CO (0.00-0.79); ~Hepatitis B Surface Antibody REACTIVE (Nonreactive); ~Hepatitis C Antibody Nonreactive (Nonreactive)
[2024-03-15 17:54] LABS: Herpes Simplex Type 2 IgG <0.90 index
== END 2024-03-12 09:18 | disposition home or self-care (01) ==
LOC: HO.HHCL 09:17
PROVIDERS: Visit Provider Student in an Organized Health Care Education/Training Program
DX: Z00.00 Encounter for general adult medical examination without abnormal findings (principal); K13.0 Diseases of lips
CPT/HCPCS: 36415; 80053; 80061; 82728; 83036; 83540; 84443; 85027; 86695; 86696; 86704; 86706; 86780; 86803; 87340; 87389

== ENCOUNTER 2024-06-22 17:30 | Outpatient (REF) | payer MEDICAID, SELFPAY ==
[2024-06-23 09:15] LABS: H Pylori Breath Test Negative (Negative)
== END 2024-06-22 17:31 | disposition home or self-care (01) ==
LOC: HO.HHCLNP 17:30
PROVIDERS: Visit Provider Student in an Organized Health Care Education/Training Program
DX: K29.70 Gastritis, unspecified, without bleeding (principal)
CPT/HCPCS: 83013

== ENCOUNTER 2024-07-05 10:17 | Outpatient (AMB) | payer MEDICAID, SELFPAY ==
[2024-07-05 10:24] VITALS: BP 128/72; PULSE 59; BMI 22.3
--- NOTE | 2024-07-05 10:24 | MHC.OFFVIS ---
Vital Signs 07/05/24 10:24 Height 5 ft 2 in Weight 121 lb 11.123 oz BMI 22.3 BP 128/72 Blood Pressure Location Lt brachial Position Sitting Pulse 59 Pulse Source Monitor Intake Visit Reasons: 6 mth f/up Human Resources Operations Specialist Required: No Orchard Pruner: Orchard Pruner Present Allergies sumatriptan [From IMITREX] Allergy (Mild, Verified 07/05/24 10:27) NAUSEA PFSH Medical History Multinodular goiter (nontoxic) History of Helicobacter pylori infection Gastritis Anxiety and depression History of migraine Hx of perforation of tympanic membrane Surgical History H/O esophagogastroduodenoscopy H/O colonoscopy H/O breast biopsy History of ear surgery Hx of tubal ligation Hx of section Hx of cholecystectomy Family History Father Family hx of hypertension Sister Hx of thyroid cancer History of colon cancer Family hx of hypertension History of breast cancer in female, Onset Age: 42 Maternal Aunt History of breast cancer in female Mother Hx of emphysema Brother Lymphoma Social History Household Members: Spouse and Children Housing: Apartment Alcohol intake: never Patient Tobacco Use Status: Never used Tobacco Current occupational status: disabled Sexual orientation: Straight/Heterosexual Gender identity: Female Female Reproductive History Menstrual Age of Menarche: 11 Review of Systems ENT Reports dizziness Card Denies chest pain, Denies chest pain at rest, Denies chest pain with activity, Denies rapid heart rate, Denies pedal edema, Denies edema, Denies leg edema, Denies lightheadedness, Denies palpitations, Denies dyspnea, Denies dyspnea on exertion and Denies orthopnea Resp Denies cough, Denies dyspnea and Denies dyspnea on exertion GI Denies hematochezia and Denies change in stool character Musc Denies abnormal gait, Reports limited range of motion, Reports muscle cramps, Denies muscle weakness, Denies numbness, Denies radiating pain into limb, Denies stiffness and Denies tingling Neuro Denies abnormal gait, Reports dizziness, Denies numbness and Denies tingling Endo Denies palpitations Coding
--- NOTE | 2024-07-05 10:46 | A.OFFVIS_ITS ---
Vital Signs 07/05/24 10:24 07/05/24 11:33 Height 5 ft 2 in Weight 121 lb 11.123 oz BMI 22.3 22.3 BP 128/72 Blood Pressure Location Lt brachial Position Sitting Pulse 59 Pulse Source Monitor Intake Visit Reasons: 6 mth f/up Allergies sumatriptan [From IMITREX] Allergy (Mild, Verified 07/05/24 10:27) NAUSEA Medication List - Last Reconciled 07/05/24 by ERIK Ly acetaminophen (Tylenol Extra Strength) 500 mg PO Q6H PRN amitriptyline 25 mg PO DAILY ascorbic acid (vitamin C) (Vitamin C) 500 mg PO bisacodyl 10 mg (2 x 5 mg) PO BEDTIME eletriptan (Relpax) 40 mg PO Q2-4H PRN ferrous sulfate 324 mg PO DAILY lidocaine 5% (Lidoderm) 0 patches topical loratadine 10 mg PO QAM PRN metoprolol succinate ER 100 mg PO QAM metronidazole 0.75% appl topical BID multivitamin 1 tab PO QPM multivitamin with iron-mineral 1 tab PO DAILY omeprazole 40 mg PO DAILY paroxetine HCl (Paxil) 20 mg PO DAILY rizatriptan 10 mg PO DIRECTED PRN simethicone 180 mg PO QID sodium chloride 0.65% (Deep Sea Nasal) 2 sprays intranasal QID PRN vitamin E (dl, acetate) 180 mg PO QAM HPI HPI 6 mth f/up: Details: Katty is a 48-year-old female with past medical history of hypertension, heart palpitations with newer finding of paroxysmal atrial tach, treated with metoprolol who presents for follow-up. Today she reports that she has been doing well with no concerning heart palpitations. No chest discomfort, shortness of breath, lightheadedness, presyncope, syncope, falls. No PND, orthopnea or edema. Compliant with her meds. Drinks 2 caffeinated beverages daily. No routine exercise. is present. He is assisting with Angolan translation at their request. [facility] Medical History Multinodular goiter (nontoxic) History of Helicobacter pylori infection Gastritis Anxiety and depression History of migraine Hx of perforation of tympanic membrane Surgical History H/O esophagogastroduodenoscopy H/O colonoscopy H/O breast biopsy History of ear surgery Hx of tubal ligation Hx of section Hx of cholecystectomy Family History Father Family hx of hypertension Sister Hx of thyroid cancer History of colon cancer Family hx of hypertension History of breast cancer in female, Onset Age: 42 Maternal Aunt History of breast cancer in female Mother Hx of emphysema Brother Lymphoma Social History Household Members: Spouse and Children Housing: Apartment Alcohol intake: never Patient Tobacco Use Status: Never used Tobacco Current occupational status: disabled Sexual orientation: Straight/Heterosexual Gender identity: Female Female Reproductive History Menstrual Age of Menarche: 11 Review of Systems Const All systems reviewed & are unremarkable except as noted in HPI and below Reports fatigue Card Denies chest pain, Denies chest pain at rest, Denies chest pain with activity, Denies rapid heart rate, Denies leg edema, Denies palpitations, Denies dyspnea, Denies dyspnea on exertion and Denies orthopnea Resp Denies dyspnea and Denies dyspnea on exertion GI Denies no additional complaints Musc Denies no additional complaints Endo Reports fatigue and Denies palpitations Physical Exam Vital Signs: Last Vital Signs Pulse 59 07/05/24 10:24 BP 128/72 07/05/24 10:24 BMI result Body Mass Index 22.3 Const General: cooperative, healthy appearing, comfortable and no acute distress Orientation/consciousness: patient oriented x3 Neck Neck: Yes normal visual inspection and Yes no JVD Resp Effort & Inspection: normal respiratory effort Auscultation: clear to auscultation bilaterally, no crackles, no rales, no rhonchi and no wheezes Cardio Jugular venous distension: no JVD Rate: regular rate Rhythm: regular rhythm Heart sounds: S1 normal heart sound present, S2 normal heart sound present, no murmurs and no rubs Neuro General: patient oriented x3 Extrem General: Yes normal to inspection, No no pedal edema and No calf tenderness Psych Appearance: grossly normal Mental Status: mental status grossly normal Speech and movement: Normal speech and movement present Office Procedures EKG Details: Today, read by me, sinus bradycardia, rate 59, QTC 392 millisecond [id number], Complete Quality Reporting (2019) Adult ([facility] 138/2/69) Body Mass Index: 22.3 Assessment & Plan Assessment & Plan (1) Palpitations: Code(s): R00.2 - Palpitations Category: Medical Plan: Previously reported heart palpitations, brief rapid heartbeat lasting less than 1 minute and resolving. Cardiac event monitor done for 30 days starting 07/23/2023 showing sinus rhythm, heart rate range 11/05/2056, rare PACs, short runs of atrial ectopy consistent with paroxysmal atrial tachycardia. Patient activated symptom button at times with sinus rhythm and once with isolated PAC. Her description of her palpitations seems consistent with short PAT runs. Prior to medications it was happening a few times daily. Now she reports her palpitations are only rare. She continues on metoprolol XL 100 mg daily. She still drinks 2 caffeinated beverages daily. Recommended use of decaf or reduce her beverages down to 1 daily. Recommend good hydration, increasing her physical activity. Diagnosis of atrial tach reviewed with her and she states understanding. Emergency care if needed for sustained rapid palpitations. Cardiology follow-up in 1 year, sooner if needed to reassess control of palpitation. (2) Atrial tachycardia: Code(s): I47.19 - Other supraventricular tachycardia Category: Medical Plan: As above (3) Hypertension: Code(s): I10 - Essential (primary) hypertension Category: Medical Qualifiers: Hypertension type: primary hypertension Qualified Code(s): I10 - Essential (primary) hypertension Plan: Well controlled. No med changes made Plan Time spent on chart review, documentation, interview and assessment Coding Level of Care Code Est Pt Level 3 (45999) Diagnoses Palpitations R00.2 Atrial tachycardia I47.19 Primary hypertension I10 Hypertension type: primary hypertension CPT Codes EKG - CPT: [id number], Complete ([id number]) Time Spent (min) 24
[2024-07-05 11:33] VITALS: BMI 22.3
== END 2024-07-05 10:48 | disposition home or self-care (01) ==
PROVIDERS: PCP Registered Nurse; Visit Provider Nurse Practitioner Family
DX: R00.2 Palpitations (principal); I47.19 Other supraventricular tachycardia; I10 Essential (primary) hypertension
CPT/HCPCS: 93010; 99213

== ENCOUNTER → 2024-07-05 10:17 | Outpatient (BNVA) | payer MEDICAID, SELFPAY | PROVIDERS: PCP Registered Nurse; Visit Provider Nurse Practitioner Family | DX: R00.2 Palpitations (principal); I47.19 Other supraventricular tachycardia; I10 Essential (primary) hypertension; R00.1 Bradycardia, unspecified | CPT/HCPCS: 93005; 99212 ==

== ENCOUNTER 2024-07-06 14:54 | Outpatient (REF) | payer MEDICAID, SELFPAY ==
[2024-07-09 07:23] LABS: HPV mRNA E6/E7 Not Detected (Not Detected)
== END 2024-07-06 14:55 | disposition home or self-care (01) ==
LOC: HO.LNP 14:54
PROVIDERS: PCP Student in an Organized Health Care Education/Training Program; Visit Provider Advanced Practice Midwife
DX: Z01.419 Encounter for gynecological examination (general) (routine) without abnormal findings (principal)
CPT/HCPCS: 87624; 88175; 99396

== ENCOUNTER 2024-07-06 14:54 | Outpatient (AMB) | payer MEDICAID, SELFPAY ==
[2024-07-06 14:57] VITALS: BP 110/66; BMI 22.2
--- NOTE | 2024-07-06 14:57 | MHC.OFFVIS ---
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 Doing well with no concerns. She tries to eat healthy and stays active with exercise-walks/climbs . LMP 07/2023. Denies any hot flashes. Currently is sexually active with long-term partner. Hx. tubal ligation. She denies vaginal itching and irritation. STI screening offered; she declines. Denies family history of ovarian cancer. Family history of breast and colon cancer-sister. Last pap smear 2017, negative. Mammogram: 2023-at [facility]-no copies available, history of benign breast biopsy left breast, has MRI/Mammogram q 6 months. Colonoscopy is planned, has a consult this fall. [facility]LY [facility] Medical History (Updated 07/06/24 @ 15:15 by Christine Knight CNM) Multinodular goiter (nontoxic) History of Helicobacter pylori infection Gastritis Anxiety and depression History of migraine Hx of perforation of tympanic membrane Surgical History (Updated 07/06/24 @ 15:33 by Christine Knight CNM) H/O esophagogastroduodenoscopy H/O colonoscopy H/O breast biopsy History of ear surgery Hx of tubal ligation Hx of section Hx of cholecystectomy Family History Father Family hx of hypertension Sister Hx of thyroid cancer History of colon cancer Family hx of hypertension History of breast cancer in female, Onset Age: 42 Maternal Aunt History of breast cancer in female Mother Hx of emphysema Brother Lymphoma Social History Household Members: Spouse and Children Housing: Apartment Alcohol intake: never Patient Tobacco Use Status: Never used Tobacco Current occupational status: disabled Sexual orientation: Straight/Heterosexual Gender identity: Female Female Reproductive History Menstrual Age of Menarche: 11 Date of last menstrual period: 07/31/23 control method: none and permanent sterilization Total pregnancies: 2 Full term: 2 Number of Living Children: 2 Date of last pap smear: 10/05/18 Review of Systems Const All systems reviewed & are unremarkable except as noted in HPI and below Reports as per HPI Eyes Reports no additional complaints ENT Reports no additional complaints Card Reports no additional complaints Resp Reports no additional complaints GI Reports as per HPI and Reports no additional complaints Reports as per HPI Musc Reports no additional complaints Skin/Breast Reports as per HPI Neuro Reports no additional complaints Psych Reports no additional complaints Endo Reports no additional complaints Jeremiah/Lymph Reports no additional complaints Aller/Immun Reports no additional complaints Physical Exam Vital Signs: Last Vital Signs BP 110/66 07/06/24 14:57 BMI result Body Mass Index 22.2 Const General: cooperative, healthy appearing, no acute distress, well developed and alert Orientation/consciousness: patient oriented x3 HEENT Head: Yes normal to inspection Eyes General: appearance normal, both eyes and all related structures Neck Neck: Yes normal visual inspection Thyroid: Thyroid normal Chest Chest palpation & inspection: normal inspection of the chest and other (no puckering, dimpling, peau de orange, retraction, discharge, masses) Breast/axilla inspection: normal inspection of the breasts Breast/axilla palpation: normal palpation of the breasts Resp Effort & Inspection: normal respiratory effort GI Inspection: Yes normal to inspection Palpation (GI): Soft to palpation Rectal Exam - Female: deferred General: Yes bladder normal to palpation External Female Exam: normal external appearance and normal appearance of the urethra Speculum Exam - Vagina: normal appearance of the vagina, normal palpation and normal vaginal discharge Speculum Exam - Cervix: normal appearance of the cervix, normal palpation and Other cervical findings present (Bled slightly with Pap) Bimanual exam- vagina & uterus: normal bimanual exam, normal palpation, uterine size normal, bladder normal to palpation, normal palpation and non-tender Bimanual Exam- Adnexa, other: no masses Skin General skin exam: no rashes or lesions noted Rashes: no rashes Neuro General: patient oriented x3 Cognition (Neuro): normal cognition Extrem General: Yes normal to inspection Psych Attitude: cooperative Thought process: Normal thought process present Assessment & Plan Assessment & Plan (1) Encounter for well woman exam with routine gynecological exam: Code(s): Z01.419 - Encounter for gynecological examination (general) (routine) without abnormal findings Category: Medical Plan Discussed: Current recommendations for pap smears per ASCCP guidelines. Breast awareness and periodic breast exams. Maintain a healthy lifestyle including a well balanced diet and routine exercise. Mammogram yearly. Additional MRI surveillance at [facility]. Colonoscopy >45, or at risk sooner. Patient verbalizes understanding and agrees to the plan of care. She was given opportunity to ask questions and all questions were answered to the best of my ability. 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 This note is constructed using voice recognition software. While every effort has been made to ensure accuracy, insulation nozzleman errors may have been included. Coding Level of Care Code Est Pt Prev Care 40-64y(92891) Diagnoses Encounter for well woman exam with routine gynecological exam Z01.419
== END 2024-07-06 15:36 | disposition home or self-care (01) ==
LOC: HO.HWS 14:54
PROVIDERS: PCP Student in an Organized Health Care Education/Training Program; Visit Provider Advanced Practice Midwife
DX: Z01.419 Encounter for gynecological examination (general) (routine) without abnormal findings (principal)
CPT/HCPCS: 99396

== ENCOUNTER 2024-07-19 14:02 | Outpatient (REF) | payer MEDICAID, SELFPAY ==
--- NOTE | ~2024-07-19 | US_ITS ---
EXAMINATION: US THYROID CLINICAL INFORMATION: Multiple thyroid nodules, follow up. COMPARISON: Thyroid ultrasound 01/29/2023 and 08/21/2022. TECHNIQUE: Linear transducer grayscale and color Doppler examination with attention to the region of the thyroid. FINDINGS: SIZE: Measurements of the thyroid lobes and nodules are given in sagittal, anteroposterior and transverse dimensions respectively. Right Thyroid Lobe: 5.3 x 1.9 x 1.6 cm, volume 8.0 mL. Previously 4.5 x 1.8 x 1.7 cm, volume 7.2 mL. Parenchyma: The gland echotexture is heterogeneous. Thyroid vascularity is increased. Left Thyroid Lobe: 4.4 x 1.1 x 1.9 cm, volume 4.8 mL. Previously 4.3 x 1.6 x 1.8 cm, volume 6.5 mL. Parenchyma: The gland echotexture is heterogeneous. Thyroid vascularity is increased. Isthmus: 0.4 cm in maximum AP dimension. Previously 0.6 cm. Estimated total number of nodules greater than or equal to 1 cm: 2. Back Hanger nodules are described as follows: 1. Location: Right mid pole. Size: 0.7 x 0.4 x 0.6 cm, volume 0.08 mL. Previously: 0.8 x 0.5 x 0.9 cm, volume 0.20 mL. Nodule characteristics: Composition: Spongiform (0). ACR TI-RADS total points: 0 Previous: 3 ACR TI-RADS category: 1 Previous: 3 Significant change in size (>/= 20% in 2 dimensions and minimal increase of 2 mm or 50% or greater increase in volume): No Change in features: Yes Change in ACR TI-RADS risk category: Yes 2. Location: Left lower pole. Size: 0.5 x 0.9 x 1.0 cm, volume 0.23 mL. Previously: 0.9 x 0.6 x 1.1 cm, volume 0.30 mL. Nodule characteristics: Composition: Mixed cystic and solid (1). Echogenicity: Isoechoic (1). Shape: Not taller than wide (0). Margins: Smooth (0). Echogenic Foci: Comet-tail artifacts (0). ACR TI-RADS total points: 2 Previous: 2 ACR TI-RADS category: 2 Previous: 2 Significant change in size (>/= 20% in 2 dimensions and minimal increase of 2 mm or 50% or greater increase in volume): No Change in features: No Change in ACR TI-RADS risk category: No 3. Location: Left upper pole. Size: 1.1 x 0.8 x 1.0 cm, volume 0.4 mL. Previously: 1.8 x 1.3 x 1.2 cm, volume 1.5 mL. Nodule characteristics: Composition: Solid/almost completely solid (2). Echogenicity: Hypoechoic (2). Shape: Not taller than wide (0). Margins: Smooth (0). Echogenic Foci: Punctate echogenic foci (3). ACR TI-RADS total points: 7 Previous: 8 ACR TI-RADS category: 5 Previous: 5 Significant change in size (>/= 20% in 2 dimensions and minimal increase of 2 mm or 50% or greater increase in volume): No Change in features: Yes Change in ACR TI-RADS risk category: No NODES: No lymphadenopathy is seen in the tissue surrounding the thyroid gland. US/US thyroid IMPRESSION: FNA is recommended for left upper pole nodule if not previously performed. ACR TI-RADS RECOMMENDATION REFERENCE: Ultrasound-guided fine-needle aspiration, follow up ultrasound, no further followup. * TR1 (0 point) and TR2 (2 points): No FNA or followup * TR3 (3 points): FNA if more than or equal to 2.5 cm in maximum dimension, follow up ultrasound in 1, 3 and 5 years if 1.5 to 2.4 cm in maximum dimension. * TR4 (4-6 points): FNA if more than or equal to 1.5 cm in maximum dimension, follow up ultrasound in 1, 2, 3 and 5 years if 1 to 1.4 cm in maximum dimension. * TR5 (more than or equal to 7 points): FNA if more than or equal to 1 cm in maximum dimension, follow up ultrasound every year for 5 years if 0.5 to 0.9 cm in maximum dimension. * TR3, TR4 or TR5 nodules that are below the size threshold for follow up receive no followup. Electronically signed by: Hood Keith MD 07/21/2024 08:10 AM EDT
== END 2024-07-19 14:03 | disposition home or self-care (01) ==
LOC: HO.US 14:02
PROVIDERS: PCP Student in an Organized Health Care Education/Training Program; Visit Provider Student in an Organized Health Care Education/Training Program
DX: E04.2 Nontoxic multinodular goiter (principal)
CPT/HCPCS: 76536

== ENCOUNTER 2024-08-17 10:15 | Outpatient (REF) | payer MEDICAID, SELFPAY ==
[2024-08-17 11:39] LABS: Hematocrit 36.4 % (37.0-47.0); Hemoglobin 12.3 g/dl (12.0-16.0); Mean Corpuscular HGB Conc 33.8 g/dl (31.0-35.0); Mean Corpuscular Hemoglobin 31.5 pg (27.0-33.0); Mean Corpuscular Volume 93.3 fL (80.0-98.0); Mean Platelet Volume 9.8 fL (9.4-12.3); Platelet Count 234 X10*3/uL (160-400); Red Cell Distribution Width 11.8 % (11.0-16.0); White Blood Count 6.7 X10*3/uL (4.8-10.8)
[2024-08-17 11:58] LABS: Alanine Aminotransferase 21 U/L (0-31); Albumin Level 4.3 g/dL (3.5-5.0); Alkaline Phosphatase 85 U/L (39-117); Anion Gap 8 (12-20); Aspartate Amino Transferase 24 U/L (5-31); Bilirubin Total 0.3 mg/dL (0.0-1.0); Blood Urea Nitrogen 16 mg/dL (9-16); Calcium 9.8 mg/dL (8.4-10.2); Carbon Dioxide 29 mmol/L (22-29); Chloride 108 mmol/L (96-108); Cholesterol 183 mg/dL (<200); Estimated Glomerular Filt Rate > 60; Glucose Random 104 mg/dL (60-115); HDL Cholesterol 41 mg/dL (>40); LDL Cholesterol Calculated 107 mg/dL (<100); Potassium 4.3 mmol/L (3.3-5.1); Sodium 141 mmol/L (135-145); Total Protein 7.3 g/dL (6.5-8.0); Triglycerides 178 mg/dL (<150)
[2024-08-17 12:23] LABS: Creatinine Urine 188.02 mg/dL; Microalbum/Creatinine Ratio Ur 56.9 ug/mg cr (<30)
== END 2024-08-17 10:16 | disposition home or self-care (01) ==
LOC: HO.HHCL 10:15
PROVIDERS: Visit Provider Student in an Organized Health Care Education/Training Program
DX: I10 Essential (primary) hypertension (principal); Z86.2 Personal history of diseases of the blood and blood-forming organs and certain disorders involving the immune mechanism; E78.5 Hyperlipidemia, unspecified; Z01.818 Encounter for other preprocedural examination; Z80.0 Family history of malignant neoplasm of digestive organs; K21.9 Gastro-esophageal reflux disease without esophagitis
CPT/HCPCS: 36415; 80053; 80061; 82043; 82570; 85027; 99212

== ENCOUNTER 2024-08-17 15:54 | Outpatient (AMB) | payer MEDICAID, SELFPAY ==
[2024-08-17 15:59] VITALS: BP 124/71; PULSE 65; BMI 22.0
--- NOTE | 2024-08-17 15:59 | MHC.OFFVIS ---
Vital Signs 08/17/24 15:59 Height 5 ft 2 in Weight 120 lb 5.958 oz BMI 22.0 BP 124/71 Blood Pressure Location Lt brachial Position Sitting Pulse 65 Intake Visit Reasons: Pre colonoscopy Intake Note: Katty presents to in office visit for colonoscopy screening. CC: Patient reports doing well, denies having any new GI symptoms or concerns. Torque Tester Required: Yes Accompanied by: Family/Other Allergies sumatriptan [From IMITREX] Allergy (Mild, Verified 08/17/24 16:00) NAUSEA HPI HPI Pre colonoscopy: Details: Assessment & Plan (1) Nausea: ?Code(s): R11.0 - Nausea ?Plan: Telugu #her translates per pt request She has nausea sometimes but says that the sx are better with the increase in the omeprazole. She is using the simethicone prn...never received the bisacodyl (? ins) but feels she is moving her bowels. She had a looser stool yesterday. She c/o 2 menses in one month at age 46 could be perimenopause. Her mother is , but she has an older sister (who had heavy menses) suggest she speak with her sister. This could effect nausea. She is worried because 3 weeks ago she vomited and she saw a little bit of blood, and it tasted like blood. When she eats grains she has to vomit and it gives her a lot of acid. I think will give her a short course of Carafate to soothe her throat as it sounds like she is having an increase in her acid reflux it could be related to hormonal changes or even intermittent constipation.? I will try res sending the bisacodyl to see she gets it but did instruct her that if it is not covered she will need an [id number]-fmacpyb laxative to potentially offset the Carafate. Will also get a RAST panel since she says grains or problem for her to see if there is any food allergies up way.? Because she says the symptoms feels somewhat similar to when she had H pylori will do a stool antigen but we did confirm red occasion in the past.? Also get a fit test since she has a history of anemia to see if there is any reason to be concerned about upper GI bleeding.? She continues on her oral iron supplementation. I want to see her back in 4 weeks to go over test and evaluate her response to therapy. (2) GERD (gastroesophageal reflux disease): ?Code(s): K21.9 - Gastro-esophageal reflux disease without esophagitis (3) H. pylori infection: ?Comment: hx s/p tx ?Code(s): A04.8 - Other specified bacterial intestinal infections (4) Constipation: ?Code(s): K59.00 - Constipation, unspecified (5) Anemia: ?Code(s): D64.9 - Anemia, unspecified ? ? ? Orders: Orders H pylori Ag Stool Today A04.8 - Other specified bacterial intestinal infections, R11.0 - Nausea ? FITS Today A04.8 - Other specified bacterial intestinal infections, R11.0 - Nausea ? Rast Allergen Today R11.0 - Nausea, R14.0 - Abdominal distension (gaseous) ? Medications: New bisacodyl 10 mg (2 x 5 mg) PO BEDTIME 60 tabs 6RF K59.00 - Constipation, unspecified ? sucralfate (Carafate) 10 mL? PO QAM 400 mL 0RF ? LABS: Laboratory Tests 08/17/24 10:20 WBC 6.7 Hgb 12.3 Hct 36.4 L MCV 93.3 MCH 31.5 Plt Count 234 Estimated GFR > 60 Total Bilirubin 0.3 AST 24 ALT 21 Alkaline Phosphatase 85 Laboratory Tests 06/21/22 12:10 Fecal Immunochem Test NEGATIVE RAST NOT RETURNED TODAY'S VISIT Telugu # translates per pt request Patient has been lost to follow-up since 05/2022 Today she is just here for colonoscopy screening. She had a prior scope in 2018=[address] Cristobal. Her CIC is managed with bisacodyl. Her GERD is well managed with omeprazole 40mg qd and when I take it I will not have pain for days. She requests an EGD, but this is revolving around her concern that she still has GERD, and the EGD would not be indicated in a situation where the GERD is well controlled on reasonable measures. I explain that EGD is NOT a screening procedure in such a situation. We will do a barium swallow to further address this since EGD was non diagnostic. She says she could not drink the Go lytely the last time, so we will move to Miralax prep. I advise her to start the prep EARLIER IN THE DAYS to avoid N/V and bloating and to help her through it. I also suggest a low residual diet for a week prior to the procedure. She denies any cardiac or respiratory problems There are no prior problems with anesthesia or sedation. NO ID problems. She has a PHX TA and FHX crc. [facility] Medical History (Updated 08/17/24 @ 16:14 by VARINDER Marlow) Palpitations Nausea Abdominal bloating H. pylori infection Encounter for annual routine gynecological examination Encounter for well woman exam with routine gynecological exam Multinodular goiter (nontoxic) History of Helicobacter pylori infection Gastritis Anxiety and depression History of migraine Hx of perforation of tympanic membrane Surgical History H/O esophagogastroduodenoscopy H/O colonoscopy H/O breast biopsy History of ear surgery Hx of tubal ligation Hx of section Hx of cholecystectomy Family History Father Family hx of hypertension Sister Hx of thyroid cancer History of colon cancer Family hx of hypertension History of breast cancer in female, Onset Age: 42 Maternal Aunt History of breast cancer in female Mother Hx of emphysema Brother Lymphoma Social History Household Members: Spouse and Children Housing: Apartment Alcohol intake: never Patient Tobacco Use Status: Never used Tobacco Current occupational status: disabled Sexual orientation: Straight/Heterosexual Gender identity: Female Female Reproductive History Menstrual Age of Menarche: 11 Review of Systems Const Denies fatigue, Denies fever(s), Denies night sweats, Denies poor appetite and Denies weight loss ENT Reports Normal hearing present, Denies dental pain, Denies dysphagia, Denies hearing loss, Denies mouth pain, Denies odynophagia, Denies throat swelling, Denies tongue swelling and Reports other (Dentition adequate) Card Reports no additional complaints Resp Reports no additional complaints GI Details: Denies abdominal pain, Denies melena, Denies bloating, Denies hematochezia, Reports constipation, Denies GI cramping, Denies dysphagia, Denies excessive flatus, Denies early satiety, Reports heartburn, Denies diarrhea, Denies nausea, Denies odynophagia, Denies vomiting and Denies hematemesis Skin/Breast Denies pruritus, Denies lesions, Denies rash and Denies jaundice Neuro Reports Normal hearing present and Denies Abnormal speech present Endo Denies fatigue Aller/Immun Denies throat swelling and Denies tongue swelling Physical Exam Vital Signs: Last Vital Signs Pulse 65 08/17/24 15:59 BP 124/71 08/17/24 15:59 BMI result Body Mass Index 22.0 Const General: cooperative, no acute distress, well developed and well groomed Nutritional Appearance: average body habitus and well nourished Orientation/consciousness: oriented to person, oriented to place and oriented to time Limitations: language barrier HEENT Head: Yes normocephalic and Yes atraumatic Eyes General: appearance normal, both eyes and all related structures Pupils: Equal, round and reactive pupils present Neck Neck: Yes normal visual inspection and Yes no lymphadenopathy Thyroid: Thyroid normal Resp Effort & Inspection: normal respiratory effort and able to speak in complete sentences Auscultation: clear to auscultation bilaterally Cardio Rate: regular rate Rhythm: regular rhythm Heart sounds: Normal, physiologic split S2 sound present Peripheral pulses: radial pulses present and posterior tibial pulses present GI Inspection: No distended and No Abdominal panniculus present Palpation (GI): Soft to palpation, nontender, no guarding, not rigid and No hepatosplenomegaly present Percussion: Yes normal to percussion Auscultation: normal bowel sounds Rectal Exam - Female: deferred Abdomen image: 1. surgical scar Skin General skin exam: no rashes or lesions noted, turgor normal, skin not dry, no jaundice, No spider nevi and no striae Rashes: no rashes Nails: normal Neuro General: oriented to person, oriented to place and oriented to time Cranial nerves: Yes Equal, round and reactive pupils present and Yes Normal hearing present Speech: No Abnormal speech present Extrem General: Yes normal to inspection, No clubbing, No cyanosis and No edema Psych Appearance: grossly normal and well kempt Mental Status: mental status grossly normal (But somewhat child-like in her objections to the prep process) Speech and movement: Normal speech and movement present Affect: normal affect Attitude: cooperative Thought process: not confabulating and Impoverished thought process present Thought content: Normal thought content present Insight: Limited insight present (Psych) Judgement: Limited judgement present (Psych) Assessment & Plan Assessment & Plan (1) Family history of colon cancer: Comment: Sister early 40s Code(s): Z80.0 - Family history of malignant neoplasm of digestive organs Category: Medical (2) Pre-op examination: Code(s): Z01.818 - Encounter for other preprocedural examination Category: Medical (3) GERD (gastroesophageal reflux disease): Code(s): K21.9 - Gastro-esophageal reflux disease without esophagitis Category: Medical Plan Telugu # translates per pt request Patient has been lost to follow-up since 05/2022 Today she is just here for colonoscopy screening. She had a prior scope in 2018=[address] Cristobal. Her CIC is managed with bisacodyl. Her GERD is well managed with omeprazole 40mg qd and when I take it I will not have pain for days. She requests an EGD, but this is revolving around her concern that she still has GERD, and the EGD would not be indicated in a situation where the GERD is well controlled on reasonable measures. I explain that EGD is NOT a screening procedure in such a situation. We will do a barium swallow to further address this since EGD was non diagnostic. She says she could not drink the Go lytely the last time, so we will move to Miralax prep. I advise her to start the prep EARLIER IN THE DAYS to avoid N/V and bloating and to help her through it. I also suggest a low residual diet for a week prior to the procedure. She denies any cardiac or respiratory problems There are no prior problems with anesthesia or sedation. NO ID problems. She has a PHX TA and FHX crc. Orders: Orders Colonoscopy - GI Use Only Today Z80.0 - Family history of malignant neoplasm of digestive organs [place] barium swallow Today K21.9 - Gastro-esophageal reflux disease without esophagitis Medications: New polyethylene glycol 3350 (Miralax) 238 grams PO ONCE 238 grams 0RF colonoscopy prep 1 day bisacodyl (Dulcolax (bisacodyl)) 10 mg (2 x 5 mg) PO BEDTIME 4 tabs 0RF 2 days Coding Level of Care Code Est Pt Level 4 (36926) Diagnoses Family history of colon cancer Z80.0 Pre-op examination Z01.818 GERD (gastroesophageal reflux disease) K21.9 Time Spent (min) 39
== END 2024-08-17 16:43 | disposition home or self-care (01) ==
PROVIDERS: PCP Student in an Organized Health Care Education/Training Program; Visit Provider Nurse Practitioner
DX: Z80.0 Family history of malignant neoplasm of digestive organs (principal); Z01.818 Encounter for other preprocedural examination; K21.9 Gastro-esophageal reflux disease without esophagitis
CPT/HCPCS: 99214

== ENCOUNTER 2024-08-20 16:49 | Outpatient (REF) | payer MEDICAID, SELFPAY ==
[2024-08-21 11:03] LABS: CT PCR NOT DETECTED (Not Detect.); NG PCR NOT DETECTED (Not Detect.)
== END 2024-08-20 16:50 | disposition home or self-care (01) ==
LOC: HO.HHCLNP 16:49
PROVIDERS: Visit Provider Student in an Organized Health Care Education/Training Program
DX: Z11.3 Encounter for screening for infections with a predominantly sexual mode of transmission (principal)
CPT/HCPCS: 87491; 87591

== ENCOUNTER 2024-10-01 14:24 | Outpatient (REF) | payer MEDICAID, SELFPAY ==
[2024-10-01 16:27] LABS: Alanine Aminotransferase 19 U/L (0-31); Alkaline Phosphatase 99 U/L (39-117); Anion Gap 10 (12-20); Aspartate Amino Transferase 25 U/L (5-31); Bilirubin Total 0.3 mg/dL (0.0-1.0); Blood Urea Nitrogen 15 mg/dL (9-16); Calcium 9.6 mg/dL (8.4-10.2); Carbon Dioxide 28 mmol/L (22-29); Chloride 109 mmol/L (96-108); Estimated Glomerular Filt Rate > 60; Glucose Random 93 mg/dL (60-115); Potassium 3.9 mmol/L (3.3-5.1); Sodium 143 mmol/L (135-145); Total Protein 7.7 g/dL (6.5-8.0)
--- OUTSIDE RECORDS SUMMARY | 2024-10-06 10:19 | XMS_ITS | Continuity of Care Document ---
Author Organization [place] - [facility], [facility] Address [address] [place] [address] Care Team Providers Care Inspector Finishing Name Role Phone YAMILET LAM Primary Care Provider Assessment Encounter Date Assessment Date Assessment LastModified by Organization Details LastModified Time 08/23/2024 08/23/2024 There is no evidence of middle ear effusions. Suspect mild TMJ and ETD. Audio shows slight worsening of conductive component. Suggest TMJ precautions and re-eval with Dr Janes howe Not available 08/23/2024 16:43:48 Plan of Treatment Reminders Order Date Submit Date Provider Last Modified By Organization Details Last Modified Time Details Appointments Establish ed 10 2024 01:50P M KADIE MICHELLE MD Not available Not available Not available Lab None recorded. Referral None recorded. Procedures None recorded. Surgeries None recorded. Imaging None recorded. Medication Orders None recorded. Patient TargetsNo targets recorded. Patient InstructionsNo instructions recorded. Reason for Referral None Reported. Results Created Date Observation Date Name Description Value Unit Range Abnormal Flag Note LastModifiedBy Organization Detail LastModifiedTime 08/24/20 24 audio gram No observ ation record ed. [email or web address] Not Available 07/28 08:40:51 Result Notes None recorded. Problems Name Problem SNOMED Code Status Onset Date Resolution Date Notes Provider Name and Address Organization Details Recorded Time Sensorin eural hearing loss of bilatera l ears 237772256 Active 2016 Sensorin eural hearing loss, bilatera l; Note: Date Diagnose d: 7 1:36 PM (H90.3) Not Available [facility] 4 03:07:41 Dental caries 18123649 Active 2017 Dental caries, unspecif ied; Note: Date Diagnose d: 8 1:58 PM (K02.9) Not Available [facility] 4 03:07:39 Conducti ve hearing loss 07330998 Completed 201605/28/2024 Conducti ve hearing loss, unilater al, right ear, with unrestri cted hearing on the contrala teral side; Note: Date Diagnose d: 7 1:42 PM (H90.11) Jackelyn beckman [place] - [facility] 4 16:00:25 Partial loss of ear ossicles 20309913 Active 2016 Partial loss of ear ossicles , right ear; Note: Date Diagnose d: 02/25/2017 5:45 PM (H74.321 ) Not Available [facility] 4 03:07:40 Conducti ve hearing loss of right ear 3832642573 Active 2022 Conducti ve hearing loss, unilater al, right ear with restrict ed hearing on the contrala teral side; Note: Date Diagnose d: 3 11:11 AM (H90.A11 ) Not Available [facility] 4 03:07:39 Neck pain 24550337 Active 2022 Cervical aron; Note: Date Diagnose d: 3 10:25 AM (M54.2) Not Available [facility] 4 03:07:40 Acute myringit is of right ear 75748554516 58528 Completed 201605/28/2024 Acute myringit is, right ear; Note: Date Diagnose d: 02/25/2017 5:27 PM (H73.001 ) Not Available [facility] 4 03:07:41 Sensorin eural hearing loss in left ear 78718563112 109 Active 2017 Sensorin eural hearing loss, unilater al, left ear, with restrict ed hearing on the contrala teral side; Note: Date Diagnose d: 8 2:35 PM (H90.A22 ) Not Available [facility] 4 03:07:39 Otalgia of right ear 4899057750 Active 2016 Otalgia, right ear; Note: Date Diagnose d: 7 10:55 AM (H92.01) Not Available [facility] 4 03:07:41 Impacted cerumen in right ear 73421237263 84588 Active 2016 Impacted cerumen, right ear; Note: Date Diagnose d: 02/25/2017 5:30 PM (H61.21) Not Available [facility] 4 03:07:41 Follow-u p visit Active 2016 Medical surveill ance followin g complete d treatmen t; Note: Date Diagnose d: 7 10:22 AM (Z09) Not Available [facility] 4 03:07:40 Pain of right temporom andibula r joint 24161186668 631482 Active 2016 Arthralg ia of right temporom andibula r joint; Note: Date Diagnose d: 7 10:55 AM (M26.621 ) Not Available [facility] 4 03:07:39 Mixed conducti ve and sensorin eural hearing loss of right ear 58900864630 105 Active 2017 Mixed conducti ve and sensorin eural hearing loss, unilater al, right ear with restrict ed hearing on the contrala teral side; Note: Date Diagnose d: 8 2:35 PM (H90.A31 ) Not Available [facility] 4 03:07:40 Abnormal auditory percepti on 58197722 Active 2023 GONZALO SERRA MD [address] [place] [address], [place], [address] , [facility] - [facility] 4 15:25:45 Conducti ve hearing loss 00298807 Active 2023 Conducti ve hearing loss, unilater al, right ear, with unrestri cted hearing on the contrala teral side; Note: Date Diagnose d: 7 1:42 PM (H90.11) Jackelyn beckman MA [facility] 16:00:25 Conducti ve hearing loss 88660705 Active 2023 Jackelyn beckman MA [facility] 16:00:38 Problem Notes None recorded. Procedures Surgical History Date Name Laterality Status Provider Name and Address Organization Details Recorded Time 08/23/20 24 Tympanometry (70923) completed Jackelyn Alfaro MA [facility] 08/23/2024 15:54:29 08/23/20 24 [employer] (66336) completed Jackelyn Alfaro [facility] 08/23/2024 15:54:39 Imaging Results None recorded. Procedure Notes None recorded. Medical Equipment None Reported. Allergies No known drug allergies Medications Name Sig Start Date Stop Date Status Note LastModified by Organization Details LastModified Time medbox status USE DIRECTED 08/23 completed Not Available Not Available Not Available multivita min tablet TAKE 1 TABLET BY MOUTH EVERY EVENING WITH FOOD active Not Available Not Available No t Available Vitamin C 500 mg tablet TAKE 1 TABLET BY MOUTH TWICE DAILY IN THE MORNING AND IN THE EVENING WITH IRON active Not Available Not Available No t Available ofloxacin 0.3 % eye drops USE 10 DROPS IN THE RIGHT EAR ONCE DAILY FOR 10 DAYS 08/23 completed Not Available Not Available Not Available simethico ne 180 mg capsule TAKE 1 CAPSULE BY MOUTH FOUR TIMES A DAY 08/23 completed Not Available Not Available Not Available tizanidin e 4 mg tablet TAKE 1 TABLET BY MOUTH THREE TIMES DAILY active Not Available Not Available No t Available metoprolo l succinate ER 50 mg tablet,ex tended release 24 hr 08/23 completed Medicati on ID: [id number] D uration Value: 30 Brand Name: metoprol ol succinat e Send Method: E-Prescr ibed Sub s Allowed: subs OK Speci al Instruct ion: TAKE 1 AND 1/2 TABLETS BY MOUTH EVERY DAY Medi cationGe nericNam e: metoprol ol succinat e Not Available Not Available Not Available rizatript an 10 mg tablet TAKE 1 TABLET BY MOUTH AT ONSET OF MIGRAINE . MAY REPEAT AFTER 2 HOURS IF NEEDED active Not Available Not Available No t Available metoprolo l succinate ER 100 mg tablet,ex tended release 24 hr TAKE 1 TABLET BY MOUTH EVERY MORNING active Not Available Not Available No t Available Calcium Antacid 200 mg (as calcium carbonate 500 mg) chewable tablet CHEW 1 TABLET BY MOUTH TWICE DAILY IN THE MORNING AND AT BEDTIME NEEDED HEARTBUR N active Not Available Not Available No t Available Axert 6.25 mg tablet 08/27 completed Medicati on ID: [id number] R court: () Brand Name: Axert Se nd Method: E-Prescr ibed Sub s Allowed: subs OK Medic ationGen ericName : Axert Not Available Not Available Not Available omeprazol e 40 mg capsule,d elayed release TAKE 1 CAPSULE BY MOUTH EVERY DAY active Not Available Not Available No t Available ofloxacin 0.3 % ear drops 4 drop into both ears 2018 active Medicati on ID: [id number] D uration Value: 5 Prescri bed By Name: NURIA Hutchins nd Name: ofloxaci n Send Method: E-Prescr ibed Sub s Allowed: subs OK Elisabeti al Instruct ion: x 5 days Med icationG enericNa me: ofloxaci n Not Available Not Available Not Available Deep Sea Nasal 0.65 % spray aerosol 2018 active Medicati on ID: [id number] D uration Value: 7 Brand Name: Deep Sea Nasal Se nd Method: E-Prescr ibed Sub s Allowed: subs OK Elisabeti al Instruct ion: USE 2 SPRAYS IN EACH NOSTRIL FOUR TIMES DAILY NEEDED M jennifer Olvera Name: Deep Sea Nasal Not Available Not Available Not Available famotidin e 20 mg tablet TAKE 1 TABLET BY MOUTH EVERY DAY NEEDED FOR HEARTBUR N 08/23 completed Not Available Not Available Not Available amitripty line 25 mg tablet TAKE 3 TABLETS BY MOUTH AT BEDTIME active Not Available Not Available No t Available magnesium oxide 400 mg (241.3 mg magnesium ) tablet TAKE 1 TABLET BY MOUTH EVERY MORNING active Not Available Not Available No t Available ciproflox acin 0.3 % eye drops Instill 4 drop twice a day 08/23 completed Medicati on ID: [id number] D uration Value: 14 Brand Name: Ciloxan Send Method: E-Prescr ibed Sub s Allowed: subs OK Speci al Instruct ion: 4 drops into affected ear BID X 14 days Med ication enericNa me: Ciloxan Not Available Not Available Not Available paroxetin e 20 mg tablet TAKE 1 TABLET BY MOUTH EVERY MORNING active Not Available Not Available No t Available ferrous sulfate 325 mg (65 mg iron) tablet TAKE 1 TABLET BY MOUTH TWICE DAILY IN THE MORNING AND IN THE EVENING active Not Available Not Available No t Available lidocaine 5 % topical patch APPLY 1-2 PATCHES TOPICALL Y TO AFFECTED AREA(S). LEAVE ON FOR 12 HOURS AND OFF FOR 12 HOURS active Not Available Not Available No t Available metronida zole 0.75 % topical cream APPLY TO THE AFFECTED AREA(S) SPARINGL Y TWICE DAILY DIRECTED 08/23 completed Not Available Not Available Not Available losartan 25 mg tablet TAKE 1 TABLET BY MOUTH EVERY MORNING active Not Available Not Available No t Available docusate sodium 100 mg capsule TAKE 1 CAPSULE BY MOUTH TWICE DAILY IN THE MORNING AND IN THE EVENING active Not Available Not Available No t Available metoprolo l succinate ER 25 mg tablet,ex tended release 24 hr 08/27 completed Medicati on ID: [id number] R court: () Brand Name: metoprol ol succinat e Send Method: E-Prescr ibed Sub s Allowed: subs OK Medic ationGen ericName : metoprol ol succinat e Not Available Not Available Not Available lorazepam 1 mg tablet TAKE 1 TAB BY MOUTH 1 HOUR PREPROCE DURE. REPEAT DOSE IN 4 HOURS NEEDED active Not Available Not Available No t Available [place] 5 mg-325 mg tablet 1-2 tablet by mouth 08/23 completed Medicati on ID: [id number] D uration Value: 7 Prescri bed By Name: Eris Patel nd Name: [place] Se nd Method: E-Prescr ibed Sub s Allowed: subs OK Medic ationGen ericName : [place] Not Available Not Available Not Available loratadin e 10 mg tablet TAKE 1 TABLET BY MOUTH EVERY MORNING active Not Available Not Available No t Available Laxative (bisacody l) 5 mg tablet,de layed release TAKE 2 TABLETS (2 X 5 MG) ORALLY AT BEDTIME active Not Available Not Available No t Available TobraDex 0.3 %-0.1 % eye drops,[facility] 08/23 completed Medicati on ID: [id number] D uration Value: 7 Prescri bed By Name: Eris Patel nd Name: TobraDex Send Method: E-Prescr ibed Sub s Allowed: subs OK Speci al Instruct ion: Instill 4 drops in the affected ear BID for 7 days Med icationG enericNa me: TobraDex Not Available Not Available Not Available diclofena c 1 % topical gel APPLY 2 GRAMS TOPICALL Y TWICE DAILY IN THE MORNING AND AT BEDTIME NEEDED FOR MUSCLE PAIN active Not Available Not Available No t Available vitamin E (dl, acetate) 180 mg (400 unit) capsule TAKE 1 CAPSULE BY MOUTH EVERY MORNING active Not Available Not Available No t Available omega-3 300 mg-dha 120 mg-epa 180 mg-fish oil 1,000 mg capsule TAKE 1 CAPSULE BY MOUTH EVERY DAY active Not Available Not Available No t Available Vitals Date Recorded Body height Body mass index (BMI) Body weight Provider Name and Address Organization Details Last Updated DateTime 08/23/2024 157.48 cm 21.9 kg/m2 41763.08 g Cecile Purcell MA - [facility] 08/23/2024 15:10:15 Social History None recorded. Functional Status None recorded. Mental Status None recorded. Family History Nothing Reported. Medical History No medical history recorded. Gynecological HistoryNo gynecological history recorded. Obstetrics History GPAL:G 0 P 0 0 0 0 Past Encounters Encounter ID Performer Location Encounter Start Date Encounter Closed Date Diagnosis/Indication Diagnosis SNOMED-CT Code Diagnosis ICD10 Code [id number] GONZALO SERRA MD [facility] [address] [address] 08/23/2024 14:48:05 08/23/2024 16:20:00 Abnormal auditory perception 64391575 H93.291 Otalgia of right ear 544 7131515 H92.01 Conductive hearing loss 80634617 H90.A11 Health Concerns Section Related Observation LastModified by Organization Detai ls LastModified Time None Recorded Concern Status LastModified by Organization Details LastModified Time None Recorded Payers Encounter Date Sequence Insurance Name Policy Number Policy Garay Covered Member ID Garay Member ID Guarantor Name 08/23/2024 1 [place] Seanbrent [id number] Katty Ram Seanbrent Notes Date Note Type Note Provider Name and Address Organization Details Recorded Time 08/23/2024 text/html Hx of of OCR and revision t-plasty 2022. Presents with 3 days of right ear pain and swishing noise. No d/c. Feels a little blocked GONZALO IBARRA MD [address] [place] [address], [place], [address], [place] - [facility] 08/23/2024 16:46:08 OBGyn Episode No OBEpisode recorded.
--- OUTSIDE RECORDS SUMMARY | 2024-10-06 10:19 | XMS_ITS | Data Portability ---
Author Organization [place] - [facility], Allergy Address [address] [place] [address] Care Team Providers Care Inductor Tester Name Role Phone YAMILET LAM Primary Care [...] audio gram No observ ation record ed. [email or web address] Not Available 07/28 08:40:51 Result Notes None recorded. Problems Name Problem SNOMED Code Status Onset Date Resolution Date Notes Provider Name and Address Organization Details Recorded Time Sensorin eural hearing loss of bilatera l ears 262664461 Active 2016 Sensorin eural hearing loss, bilatera l; Note: Date Diagnose d: 7 1:36 PM (H90.3) Not Available [facility] 4 03:07:41 Dental caries 65585485 Active 2017 Dental caries, unspecif ied; Note: Date Diagnose d: 8 1:58 PM (K02.9) Not Available [facility] 4 03:07:39 Conducti ve hearing loss 77397820 Completed 201605/28/2024 Conducti ve hearing loss, unilater al, right ear, with unrestri cted hearing on the contrala teral side; Note: Date Diagnose d: 7 1:42 PM (H90.11) Jackelyn beckman [place] - [facility] 4 16:00:25 Partial loss of ear ossicles 68337914 Active 2016 Partial loss of ear ossicles , right ear; Note: Date Diagnose d: 02/25/2017 5:45 PM (H74.321 ) Not Available [facility] 4 03:07:40 Conducti ve hearing loss of right ear 1255981846 Active 2022 Conducti ve hearing loss, unilater al, right ear with restrict ed hearing on the contrala teral side; Note: Date Diagnose d: 3 11:11 AM (H90.A11 ) Not Available [facility] 4 03:07:39 Neck pain 18953576 Active 2022 Cervical aron; Note: Date Diagnose d: 3 10:25 AM (M54.2) Not Available [facility] 4 03:07:40 Acute myringit is of right ear 35516893910 12808 Completed 201605/28/2024 Acute myringit is, right ear; Note: Date Diagnose d: 02/25/2017 5:27 PM (H73.001 ) Not Available [facility] 4 03:07:41 Sensorin eural hearing loss in left ear 19287864983 109 Active 2017 Sensorin eural hearing loss, unilater al, left ear, with restrict ed hearing on the contrala teral side; Note: Date Diagnose d: 8 2:35 PM (H90.A22 ) Not Available [facility] 4 03:07:39 Otalgia of right ear 3540807325 Active 2016 Otalgia, right ear; Note: Date Diagnose d: 7 10:55 AM (H92.01) Not Available [facility] 4 03:07:41 Impacted cerumen in right ear 49605941105 70625 Active 2016 Impacted cerumen, right ear; Note: Date Diagnose d: 02/25/2017 5:30 PM (H61.21) Not Available [facility] 4 03:07:41 Follow-u p visit Active 2016 Medical surveill ance followin g complete d treatmen t; Note: Date Diagnose d: 7 10:22 AM (Z09) Not Available [facility] 4 03:07:40 Pain of right temporom andibula r joint 77019333358 172456 Active 2016 Arthralg ia of right temporom andibula r joint; Note: Date Diagnose d: 7 10:55 AM (M26.621 ) Not Available [facility] 4 03:07:39 Mixed conducti ve and sensorin eural hearing loss of right ear 48899983553 105 Active 2017 Mixed conducti ve and sensorin eural hearing loss, unilater al, right ear with restrict ed hearing on the contrala teral side; Note: Date Diagnose d: 8 2:35 PM (H90.A31 ) Not Available [facility] 4 03:07:40 Abnormal auditory percepti on 60338196 Active 2023 GONZALO SERRA MD [address] [place] [address], [place], [address] , [facility] - [facility] 4 15:25:45 Conducti ve hearing loss 61945231 Active 2023 Conducti ve hearing loss, unilater al, right ear, with unrestri cted hearing on the contrala teral side; Note: Date Diagnose d: 7 1:42 PM (H90.11) Jackelyn beckman [place] - [facility] 16:00:25 Conducti ve hearing loss 39323404 Active 2023 Jackelyn beckman MA [facility] 16:00:38 Problem Notes None recorded. Procedures Surgical History Date Name Laterality Status Provider Name and Address Organization Details Recorded Time 08/23/20 24 Tympanometry (65327) completed Jackelyn Alfaro MA [facility] 08/23/2024 15:54:29 08/23/20 24 [employer] (28077) completed Jackelyn Alfaro MA [facility] 08/23/2024 15:54:39 Imaging Results Imaging Date Name Status LastModified by Organiz ation Details LastModified Time 08/24/2024 audiogram completed [email or web address] Information n ot available 08/24/2024 08:40:51 Procedure Notes None recorded. Medical Equipment None [...] 24 hr 08/23 completed Medicati on ID: [id number] D uration Value: 30 Brand Name: metoprol [...] mg tablet 08/27 completed Medicati on ID: [id number] R court: () Brand Name: Axert Se [...] both ears 2018 active Medicati on ID: [id number] D uration Value: 5 Prescri bed By Name: NURIA Hutchins nd Name: ofloxaci n Send Method: E-Prescr ibed Sub s Allowed: subs OK Speci al Instruct ion: x 5 days Med icationG enericNa me: ofloxaci n Not Available Not Available Not Available Deep Sea Nasal 0.65 % spray aerosol 2018 active Medicati on ID: [id number] D uration Value: 7 Brand Name: Deep Sea Nasal Se nd Method: E-Prescr ibed Sub s Allowed: subs OK Speci al Instruct ion: USE 2 SPRAYS IN EACH NOSTRIL FOUR TIMES DAILY NEEDED Michael Olvera Name: Deep Sea Nasal Not Available [...] a day 08/23 completed Medicati on ID: [id number] D uration Value: 14 Brand Name: Ciloxan Send Method: E-Prescr ibed Sub s Allowed: subs OK Speci al Instruct ion: 4 drops into affected ear BID X 14 days Med icationG enericNa me: [place] Not Available Not Available [...] 24 hr 08/27 completed Medicati on ID: [id number] R court: () Brand Name: metoprol ol succinat e Send Method: E-Prescr ibed Sub s Allowed: subs OK Medic ationGen ericName : metoprol ol succinat e Not Available Not Available Not Available lorazepam 1 mg tablet TAKE 1 TAB BY MOUTH 1 HOUR PREPROCE DURE. REPEAT DOSE IN 4 HOURS NEEDED active Not Available Not Available No t Available [place] 5 mg-325 mg tablet 1-2 tablet by mouth 08/23 completed Medicati on ID: [id number] D uration Value: 7 Prescri bed By Name: Eris Patel nd Name: Christiano Danielle nd Method: E-Prescr ibed Sub s Allowed: subs OK Medic ationGen ericName : [place] Not Available Not Available Not Available loratadin e 10 mg tablet TAKE 1 TABLET BY MOUTH EVERY MORNING active Not Available Not Available No t Available Laxative (bisacody l) 5 mg tablet,de layed release TAKE 2 TABLETS (2 X 5 MG) ORALLY AT BEDTIME active Not Available Not Available No t Available TobraDex 0.3 %-0.1 % eye drops,[facility] 08/23 completed Medicati on ID: [id number] D uration Value: 7 Prescri bed By Name: Eris Patel nd Name: TobFranci Send Method: E-Prescr ibed Sub s Allowed: [...] Updated DateTime 08/23/2024 157.48 cm 21.9 kg/m2 47114.08 g Cecile Purcell [place] - [facility] 08/23/2024 15:10:15 Social History None recorded. Functional Status None recorded. Mental Status None recorded. Family History Nothing Reported. Medical History No medical history recorded. Gynecological HistoryNo gynecological history recorded. Obstetrics History GPAL:G 0 P 0 0 0 0 Past Encounters Encounter ID Performer Location Encounter Start Date Encounter Closed Date Diagnosis/Indication Diagnosis SNOMED-CT Code Diagnosis ICD10 Code [id number] GONZALO SERRA MD [facility] [address] [place] [address] 08/23/2024 14:48:05 08/23/2024 16:20:00 Abnormal auditory perception 13821601 H93.291 Otalgia of right ear 940 5587075 H92.01 Conductive hearing loss 61897024 H90.A11 Health Concerns Section Related Observation LastModified by Organization Detai ls LastModified Time None Recorded Concern Status LastModified by Organization Details LastModified Time None Recorded Advance Directives Directive None Recorded Payers Encounter Date Sequence Insurance Name Policy Number Policy Garay Covered Member ID Garay Member ID Guarantor Name 08/23/2024 1 [place] [facility] Katty Boldenrenato [id number] Katty Trejo Notes Date Note Type Note Provider Name and Address Organization Details Recorded Time 08/23/2024 text/html Hx of of OCR and revision t-plasty 2022. Presents with 3 days of right ear pain and swishing noise. No d/c. Feels a little blocked GONZALO IBARRA MD [address] [place] [address], [phone], [facility] - [facility] 08/23/2024 16:46:08 OBGyn Episode No OBEpisode recorded.
== END 2024-10-01 14:25 | disposition home or self-care (01) ==
LOC: HO.HHCL 14:24
PROVIDERS: Visit Provider Student in an Organized Health Care Education/Training Program
DX: I10 Essential (primary) hypertension (principal)
CPT/HCPCS: 36415; 80053

== ENCOUNTER 2024-10-04 15:47 | Outpatient (REF) | payer MEDICAID, SELFPAY | END 2024-10-04 15:48 | disposition home or self-care (01) | LOC: HO.XRAY 15:47 | PROVIDERS: PCP Student in an Organized Health Care Education/Training Program; Visit Provider Internal Medicine Geriatric Medicine | DX: M17.11 Unilateral primary osteoarthritis, right knee (principal) | CPT/HCPCS: 73070 ==

== ENCOUNTER 2024-11-08 09:34 | Outpatient (REF) | payer MEDICAID, SELFPAY ==
--- NOTE | ~2024-11-08 | FL_ITS ---
EXAMINATION: XR FLUOROSCOPY UPPER GI WITH AIR CLINICAL INFORMATION: Reflux COMPARISON: None TECHNIQUE: Fluoroscopic air contrast upper GI examination was performed utilizing standard techniques with thin and thick barium and effervescent granules. Numerous spot images were obtained. FINDINGS: Dual and single contrast images of the esophagus demonstrate normal caliber, contour, and mucosal pattern. No evidence of stricture, mass, or ulcerations identified. Esophageal peristalsis was normal. No hiatal hernia is identified. Gastroesophageal reflux is seen up to the midesophagus. Dual contrast and single contrast images of the stomach demonstrated a normal contour. The areae gastricae have a thickened appearance, suggestive of gastritis. Contrast freely passed into the gastric antrum and duodenal bulb without delay. Single and air-contrast images of the duodenal bulb demonstrate no abnormality. The duodenal sweep has a normal appearance, course, and mucosal fold appearance. The imaged proximal jejunum has a normal fold pattern and caliber. FLUOROSCOPY TIME: 3 minutes 58 seconds Number of Spot Images: 8 Number of Cine: 11 DOSE AREA PRODUCT: 1482 uGy-m2 (microgray-meter squared) FL/FL barium swallow with air IMPRESSION: 1. Moderate gastroesophageal reflux. 2. Thickened appearance of the areae gastricae, suggestive of gastritis. This procedure was performed by Reji Rios PA-C, and supervised by Dr. To Electronically signed by: Lane To MD 11/09/2024 03:54 PM [facility]
--- OUTSIDE RECORDS SUMMARY | 2024-11-08 10:28 | XMS_ITS | Data Portability ---
Author Organization [place] - [facility], Allergy Address [address] [place] [address] Care Team Providers Care Recruitment Coordinator Name Role Phone YAMILET LAM Primary Care [...] audio gram No observ ation record ed. [email or web address] Not Available 07/28 08:40:51 Result Notes None recorded. Problems Name Problem SNOMED Code Status Onset Date Resolution Date Notes Provider Name and Address Organization Details Recorded Time Sensorin eural hearing loss of bilatera l ears 055389991 Active 2016 Sensorin eural hearing loss, bilatera l; Note: Date Diagnose d: 7 1:36 PM (H90.3) Not Available [facility] 4 03:07:41 Dental caries 43275532 Active 2017 Dental caries, unspecif ied; Note: Date Diagnose d: 8 1:58 PM (K02.9) Not Available [facility] 4 03:07:39 Conducti ve hearing loss 18654892 Completed 201605/28/2024 Conducti ve hearing loss, unilater al, right ear, with unrestri cted hearing on the contrala teral side; Note: Date Diagnose d: 7 1:42 PM (H90.11) Jackelyn beckman [place] - [facility] 4 16:00:25 Partial loss of ear ossicles 06205093 Active 2016 Partial loss of ear ossicles , right ear; Note: Date Diagnose d: 02/25/2017 5:45 PM (H74.321 ) Not Available [facility] 4 03:07:40 Conducti ve hearing loss of right ear 4616921139 Active 2022 Conducti ve hearing loss, unilater al, right ear with restrict ed hearing on the contrala teral side; Note: Date Diagnose d: 3 11:11 AM (H90.A11 ) Not Available [facility] 4 03:07:39 Neck pain 04781752 Active 2022 Cervical aron; Note: Date Diagnose d: 3 10:25 AM (M54.2) Not Available [facility] 4 03:07:40 Acute myringit is of right ear 92294164797 38404 Completed 201605/28/2024 Acute myringit is, right ear; Note: Date Diagnose d: 02/25/2017 5:27 PM (H73.001 ) Not Available [facility] 4 03:07:41 Sensorin eural hearing loss in left ear 44856061930 109 Active 2017 Sensorin eural hearing loss, unilater al, left ear, with restrict ed hearing on the contrala teral side; Note: Date Diagnose d: 8 2:35 PM (H90.A22 ) Not Available [facility] 4 03:07:39 Otalgia of right ear 8897647397 Active 2016 Otalgia, right ear; Note: Date Diagnose d: 7 10:55 AM (H92.01) Not Available [facility] 4 03:07:41 Impacted cerumen in right ear 90354141230 77299 Active 2016 Impacted cerumen, right ear; Note: Date Diagnose d: 02/25/2017 5:30 PM (H61.21) Not Available [facility] 4 03:07:41 Follow-u p visit Active 2016 Medical surveill ance followin g complete d treatmen t; Note: Date Diagnose d: 7 10:22 AM (Z09) Not Available [facility] 4 03:07:40 Pain of right temporom andibula r joint 00519626552 196640 Active 2016 Arthralg ia of right temporom andibula r joint; Note: Date Diagnose d: 7 10:55 AM (M26.621 ) Not Available [facility] 4 03:07:39 Mixed conducti ve and sensorin eural hearing loss of right ear 55513356480 105 Active 2017 Mixed conducti ve and sensorin eural hearing loss, unilater al, right ear with restrict ed hearing on the contrala teral side; Note: Date Diagnose d: 8 2:35 PM (H90.A31 ) Not Available [facility] 4 03:07:40 Abnormal auditory percepti on 03363045 Active 2023 GONZALO SERRA MD [address] [place] [address], [place], [address] , [facility] - [facility] 4 15:25:45 Conducti ve hearing loss 02707950 Active 2023 Conducti ve hearing loss, unilater al, right ear, with unrestri cted hearing on the contrala teral side; Note: Date Diagnose d: 7 1:42 PM (H90.11) Jackelyn beckman [place] - [facility] 16:00:25 Conducti ve hearing loss 83645253 Active 2023 Jackelyn beckman MA [facility] 16:00:38 Problem Notes None recorded. Procedures Surgical History Date Name Laterality Status Provider Name and Address Organization Details Recorded Time 08/23/20 24 Tympanometry (60766) completed Jackelyn Alfaro MA [facility] 08/23/2024 15:54:29 08/23/20 24 [employer] (48165) completed Jackelyn Alfaro MA [facility] 08/23/2024 15:54:39 Imaging Results Imaging Date Name Status LastModified by Organiz ation Details LastModified Time 08/24/2024 audiogram completed [email or web address] Information n ot available 08/24/2024 08:40:51 Procedure [...] 24 hr 08/23 completed Medicati on ID: [id number] D uration Value: 30 Brand Name: metoprol [...] mg tablet 08/27 completed Medicati on ID: [id number] R court: () Brand Name: Axert Se [...] both ears 2018 active Medicati on ID: [id number] D uration Value: 5 Prescri bed By Name: NURIA Hutchins nd Name: ofloxaci n Send Method: E-Prescr ibed Sub s Allowed: subs OK Speci al Instruct ion: x 5 days Med icationG enericNa me: ofloxaci n Not Available Not Available Not Available Deep Sea Nasal 0.65 % spray aerosol 2018 active Medicati on ID: [id number] D uration Value: 7 Brand Name: Deep [...] a day 08/23 completed Medicati on ID: [id number] D uration Value: 14 Brand Name: Ciloxan [...] 24 hr 08/27 completed Medicati on ID: [id number] R court: () Brand Name: metoprol ol succinat e Send Method: E-Prescr ibed Sub s Allowed: subs OK Medic ationGen ericName : metoprol ol succinat e Not Available Not Available Not Available lorazepam 1 mg tablet TAKE 1 TAB BY MOUTH 1 HOUR PREPROCE DURE. REPEAT DOSE IN 4 HOURS NEEDED active Not Available Not Available No t Available [place] 5 mg-325 mg tablet 1-2 tablet by mouth 08/23 completed Medicati on ID: [id number] D uration Value: 7 Prescri bed By Name: Eris Patel nd Name: Christiano Danielle nd Method: E-Prescr ibed Sub s Allowed: subs OK Medic ationGen ericName : [place] Not Available Not Available Not Available loratadin [...] drops,seb pension 08/23 completed Medicati on ID: [id number] D uration Value: 7 Prescri bed By Name: Eris Patel nd Name: Jonathan Send Method: E-Prescr ibed Sub s Allowed: [...] Updated DateTime 08/23/2024 157.48 cm 21.9 kg/m2 31549.08 g Cecile Purcell MA - Ear Nose [...] Diagnosis/Indication Diagnosis SNOMED-CT Code Diagnosis ICD10 Code Diagnosis Note [id number] GONZALO SERRA MD [facility] [address] [place] [address] 08/23/2024 14:48:05 08/23/2024 16:20:00 Abnormal auditory perception 24104970 H93.291 Otalgia of right ear 403 0901436 H92.01 Conductive hearing loss 10185411 H90.A11 Audiologic al evaluation results:Ri ght ear:{{Norm al Normal through 2 kHz* Mild Moderate M oderately- severe Sev ere Profou nd}} {{hearing sloping to a mild slopi ng to a moderate s loping to moderately severe* sl oping to severe slo ping to profound f lat high frequency low frequency mid frequency cookie bite mckoy curve}} {{with sen sorineural hearing loss with condu ctive hearing loss with* mixe d hearing loss with}} {{excellen t good edgar r poor no measurable *}} word recognitio n.Left ear:{{Norm al Normal through 2 kHz Mild M oderate Mo derately-s evere Isabelle re Profoun d Normal through 6 kHz#}} {{hearing sloping to a mild* slop ing to a moderate s loping to moderately severe slo ping to severe slo ping to profound f lat high frequency low frequency mid frequency cookie bite mckoy curve}} {{with sen sorineural hearing loss with* cond uctive hearing loss with mixed hearing loss with}} {{excellen t good edgar r poor no measurable *}} word recognitio n.SRT and WRS could not be measured due to language barriers. Tympanomet ry:Right Ear:{{Type A Type As Type Ad* Type C Type C, shallow & rounded Ty pe B Type B with large volume Cou ld not maintain a hermetic seal}}Left Ear:{{Type A* Type As Type Ad Type C Type C, shallow & rounded Ty pe B Type B with large volume Cou ld not maintain a hermetic seal}} Health Concerns Section Related Observation LastModified by Organization Detai ls LastModified Time None Recorded Concern Status LastModified by Organization Details LastModified Time None Recorded Advance Directives Directive None Recorded Payers Encounter Date Sequence Insurance Name Policy Number Policy Garay Covered Member ID Garay Member ID Guarantor Name 08/23/2024 1 [place]: [facility] Yo Maya [id number] Katty Yo Trejo Notes Date Note Type Note Provider Name and Address Organization Details Recorded Time 08/23/2024 text/html Hx of of OCR and revision t-plasty 2022. Presents with 3 days of right ear pain and swishing noise. No d/c. Feels a little blocked GONZALO IBARRA MD [address] [place] [address], [place], [address], [facility] - [facility] 08/23/2024 16:46:08 OBGyn Episode No OBEpisode recorded.
--- OUTSIDE RECORDS SUMMARY | 2024-11-08 10:28 | XMS_ITS | Continuity of Care Document ---
Author Organization [place] - [facility], [facility] Address [address] [place] [address] Care Team Providers Care Patient Case Coordinator Name Role Phone YAMILET LAM Primary [...] audio gram No observ ation record ed. [email or web address] Not Available 07/28 08:40:51 Result Notes None recorded. Problems Name Problem SNOMED Code Status Onset Date Resolution Date Notes Provider Name and Address Organization Details Recorded Time Sensorin eural hearing loss of bilatera l ears 741432574 Active 2016 Sensorin eural hearing loss, bilatera l; Note: Date Diagnose d: 7 1:36 PM (H90.3) Not Available [facility] 4 03:07:41 Dental caries 28680872 Active 2017 Dental caries, unspecif ied; Note: Date Diagnose d: 8 1:58 PM (K02.9) Not Available [facility] 4 03:07:39 Conducti ve hearing loss 91463426 Completed 201605/28/2024 Conducti ve hearing loss, unilater al, right ear, with unrestri cted hearing on the contrala teral side; Note: Date Diagnose d: 7 1:42 PM (H90.11) Jackelyn beckman [place] - [facility] 4 16:00:25 Partial loss of ear ossicles 70610885 Active 2016 Partial loss of ear ossicles , right ear; Note: Date Diagnose d: 02/25/2017 5:45 PM (H74.321 ) Not Available [facility] 4 03:07:40 Conducti ve hearing loss of right ear 7408216256 Active 2022 Conducti ve hearing loss, unilater al, right ear with restrict ed hearing on the contrala teral side; Note: Date Diagnose d: 3 11:11 AM (H90.A11 ) Not Available [facility] 4 03:07:39 Neck pain 05908903 Active 2022 Cervical aron; Note: Date Diagnose d: 3 10:25 AM (M54.2) Not Available [facility] 4 03:07:40 Acute myringit is of right ear 37491415789 82563 Completed 201605/28/2024 Acute myringit is, right ear; Note: Date Diagnose d: 02/25/2017 5:27 PM (H73.001 ) Not Available [facility] 4 03:07:41 Sensorin eural hearing loss in left ear 99205632030 109 Active 2017 Sensorin eural hearing loss, unilater al, left ear, with restrict ed hearing on the contrala teral side; Note: Date Diagnose d: 8 2:35 PM (H90.A22 ) Not Available [facility] 4 03:07:39 Otalgia of right ear 7856949745 Active 2016 Otalgia, right ear; Note: Date Diagnose d: 7 10:55 AM (H92.01) Not Available [facility] 4 03:07:41 Impacted cerumen in right ear 17234370340 35801 Active 2016 Impacted cerumen, right ear; Note: Date Diagnose d: 02/25/2017 5:30 PM (H61.21) Not Available [facility] 4 03:07:41 Follow-u p visit Active 2016 Medical surveill ance followin g complete d treatmen t; Note: Date Diagnose d: 7 10:22 AM (Z09) Not Available [facility] 4 03:07:40 Pain of right temporom andibula r joint 09147894880 793538 Active 2016 Arthralg ia of right temporom andibula r joint; Note: Date Diagnose d: 7 10:55 AM (M26.621 ) Not Available [facility] 4 03:07:39 Mixed conducti ve and sensorin eural hearing loss of right ear 37517962173 105 Active 2017 Mixed conducti ve and sensorin eural hearing loss, unilater al, right ear with restrict ed hearing on the contrala teral side; Note: Date Diagnose d: 8 2:35 PM (H90.A31 ) Not Available [facility] 4 03:07:40 Abnormal auditory percepti on 93390480 Active 2023 GONZALO SERRA MD [address] [place] [address], [place], [address] , [facility] - [facility] 4 15:25:45 Conducti ve hearing loss 97753849 Active 2023 Conducti ve hearing loss, unilater al, right ear, with unrestri cted hearing on the contrala teral side; Note: Date Diagnose d: 7 1:42 PM (H90.11) Jackelyn beckman MA [facility] 16:00:25 Conducti ve hearing loss 16033352 Active 2023 Jackelyn beckman MA [facility] 16:00:38 Problem Notes None recorded. Procedures Surgical History Date Name Laterality Status Provider Name and Address Organization Details Recorded Time 08/23/20 24 Tympanometry (42981) completed Jackelyn Alfaro MA [facility] 08/23/2024 15:54:29 08/23/20 24 [employer] (96919) completed Jackelyn Alfaro [facility] 08/23/2024 15:54:39 Imaging Results None recorded. [...] 24 hr 08/23 completed Medicati on ID: [id number] D uration Value: 30 Brand Name: metoprol [...] mg tablet 08/27 completed Medicati on ID: [id number] R court: () Brand Name: Axert Se [...] both ears 2018 active Medicati on ID: [id number] D uration Value: 5 Prescri bed By Name: NURIA Hutchins nd Name: ofloxaci n Send Method: E-Prescr ibed Sub s Allowed: subs OK Elisabeti al Instruct ion: x 5 days Med icationG enericNa me: ofloxaci n Not Available Not Available Not Available Deep Sea Nasal 0.65 % spray aerosol 2018 active Medicati on ID: [id number] D uration Value: 7 Brand Name: Deep Sea Nasal Se nd Method: E-Prescr ibed Sub s Allowed: subs OK Elisabeti al Instruct ion: USE 2 SPRAYS IN EACH NOSTRIL FOUR TIMES DAILY NEEDED M jennifer lOvera Name: Deep Sea Nasal Not Available Not [...] a day 08/23 completed Medicati on ID: [id number] D uration Value: 14 Brand Name: Ciloxan [...] 24 hr 08/27 completed Medicati on ID: [id number] R court: () Brand Name: metoprol ol succinat e Send Method: E-Prescr ibed Sub s Allowed: subs OK Medic ationGen ericName : metoprol ol succinat e Not Available Not Available Not Available lorazepam 1 mg tablet TAKE 1 TAB BY MOUTH 1 HOUR PREPROCE DURE. REPEAT DOSE IN 4 HOURS NEEDED active Not Available Not Available No t Available [place] 5 mg-325 mg tablet 1-2 tablet by mouth 08/23 completed Medicati on ID: [id number] D uration Value: 7 Prescri bed By Name: Eris Patel nd Name: [place] Se nd Method: E-Prescr ibed Sub s Allowed: subs OK Medic ationGen ericName : [place] Not Available Not Available Not Available loratadin e 10 mg tablet TAKE 1 TABLET BY MOUTH EVERY MORNING active Not Available Not Available No t Available Laxative (bisacody l) 5 mg tablet,de layed release TAKE 2 TABLETS (2 X 5 MG) ORALLY AT BEDTIME active Not Available Not Available No t Available TobraDex 0.3 %-0.1 % [facility]23 completed Medicati on ID: [id number] D uration Value: 7 Prescri bed By [...] Updated DateTime 08/23/2024 157.48 cm 21.9 kg/m2 47136.08 g Cecile Purcell MA - [facility] 08/23/2024 15:10:15 Social History None recorded. Functional Status None recorded. Mental Status None recorded. Family History Nothing Reported. Medical History No medical history recorded. Gynecological HistoryNo gynecological history recorded. Obstetrics History GPAL:G 0 P 0 0 0 0 Past Encounters Encounter ID Performer Location Encounter Start Date Encounter Closed Date Diagnosis/Indication Diagnosis SNOMED-CT Code Diagnosis ICD10 Code Diagnosis Note [id number] GONZALO SERRA MD [facility] of [address] [address] 08/23/2024 14:48:05 08/23/2024 16:20:00 Abnormal auditory perception 25911093 H93.291 Otalgia of right ear 417 1590463 H92.01 Conductive hearing loss 39788612 H90.A11 Audiologic al evaluation results:Ri ght ear:{{Norm [...] Garay Member ID Guarantor Name 08/23/2024 1 MEDICAID-[place]: [facility] Maya [id number] [facility] Maya Notes Date Note Type Note Provider Name and Address Organization Details Recorded Time 08/23/2024 text/html Hx of of OCR and revision t-plasty 2022. Presents with 3 days of right ear pain and swishing noise. No d/c. Feels a little blocked GONZALO IBARRA MD [address] [place] [address], [phone], [facility] - [facility] 08/23/2024 16:46:08 OBGyn Episode No OBEpisode recorded.
== END 2024-11-08 09:35 | disposition home or self-care (01) ==
LOC: HO.XRAY 09:34
PROVIDERS: PCP Student in an Organized Health Care Education/Training Program; Visit Provider Nurse Practitioner
DX: K21.9 Gastro-esophageal reflux disease without esophagitis (principal)
CPT/HCPCS: 74221

== ENCOUNTER → 2024-11-08 09:36 | Outpatient (BNV) | payer MEDICAID, SELFPAY | PROVIDERS: PCP Student in an Organized Health Care Education/Training Program; Visit Provider Physician Assistant Surgical | DX: K21.9 Gastro-esophageal reflux disease without esophagitis (principal) | CPT/HCPCS: 74246 ==

== ENCOUNTER 2024-11-15 11:09 | Outpatient (AMB) | payer MEDICAID, SELFPAY ==
[2024-11-15 11:21] VITALS: BMI 21.9
--- NOTE | 2024-11-15 11:21 | A.OFFVIS_ITS ---
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 States her pain started about 1-2 months ago, states she woke up with pain one day, and has had constant pain thought out the day. She expresses she feels like her elbow locks She is currently using diclofenac gel and helped very little. Denies numbness or tingling, falling or injuring her elbow. She has not tried injections, braces or O.T for her elbow. Hx of cyst drainage rt wrist. 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 The patient reports that she awoke one morning and was experiencing significant pain in the lateral R elbow, with no particular injury or inciting event that she can recall. Today, the patient reports that her pain is exacerbated by ROM of the elbow and wrist, or lifting anything heavy. Denies any numbness or tingling in the RUE. No other acute complaints or concerns at this time. [facility] Medical History (Updated 11/15/24 @ 11:43 by JEFF Antonio) Palpitations Nausea Abdominal bloating H. pylori infection Encounter for annual routine gynecological examination Encounter for well woman exam with routine gynecological exam Multinodular goiter (nontoxic) History of Helicobacter pylori infection Gastritis Anxiety and depression History of migraine Hx of perforation of tympanic membrane Surgical History H/O esophagogastroduodenoscopy H/O colonoscopy H/O breast biopsy History of ear surgery Hx of tubal ligation Hx of section Hx of cholecystectomy Family History Father Family hx of hypertension Sister Hx of thyroid cancer History of colon cancer Family hx of hypertension History of breast cancer in female, Onset Age: 42 Maternal Aunt History of breast cancer in female Mother Hx of emphysema Brother Lymphoma Social History (Updated 11/15/24 @ 11:24 by PAUL Plascencia) Household Members: Spouse and Children Housing: Apartment Alcohol intake: never Patient Tobacco Use Status: Never used Tobacco Current occupational status: disabled 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 Sexual orientation: Straight/Heterosexual Gender identity: Female Female Reproductive History Menstrual Age of Menarche: 11 Review of Systems Const All systems reviewed & are unremarkable except as noted in HPI and below Physical Exam Vital Signs: BMI result Body Mass Index 21.9 Extrem Other: Patient's R elbow normal to inspection No erythema, ecchymosis, edema noted No lacerations, abrasions, open areas No evidence of infection Patient reports tenderness to palpation of the lateral epicondyle of the right elbow No tenderness to palpation of the process, medial epicondyle, radial head, or elsewhere in the right elbow Patient is able to extend the elbow to 0 degrees without difficulty Patient is able to flex the elbow to 120 degrees without difficulty Positive Cozen's test on the right Negative reverse Cozen's test on the right No ligamentous laxity with varus/valgus testing Distal sensation intact Capillary refill brisk Assessment & Plan Assessment & Plan (1) Lateral epicondylitis of right elbow: Code(s): M77.11 - Lateral epicondylitis, right elbow Category: Medical Plan 1. Lateral epicondylitis of right elbow I educated the patient about this condition I educated the patient about the typical treatment course At this time, patient was referred to occupational therapy for treatment of lateral epicondylitis Patient was amenable to this plan Patient was advised that if after a proximally in his occupational therapy she is still experiencing significant pain, she can call us for repeat evaluation Orders: Orders OT Evaluation and Treatment Today M77.11 - Lateral epicondylitis, right elbow Coding Level of Care Code New Pt Level 3 (10822) Diagnoses Lateral epicondylitis of right elbow M77.11
--- OUTSIDE RECORDS SUMMARY | 2024-11-15 11:47 | XMS_ITS | Data Portability ---
Author Organization [place] - [facility], Allergy Address [address] [place] [phone] Care Team Providers Care Network Announcer Name Role Phone YAMILET LAM Primary Care [...] audio gram No observ ation record ed. Not Available 07/28 08:40:51 Result Notes None recorded. Problems Name Problem SNOMED Code Status Onset Date Resolution Date Notes Provider Name and Address Organization Details Recorded Time Sensorin eural hearing loss of bilatera l ears 640139988 Active 2016 Sensorin eural hearing loss, bilatera l; Note: Date Diagnose d: 7 1:36 PM (H90.3) Not Available [facility] 4 03:07:41 Dental caries 35513618 Active 2017 Dental caries, unspecif ied; Note: Date Diagnose d: 8 1:58 PM (K02.9) Not Available [facility] 4 03:07:39 Conducti ve hearing loss 05771843 Completed 201605/28/2024 Conducti ve hearing loss, unilater al, right ear, with unrestri cted hearing on the contrala teral side; Note: Date Diagnose d: 7 1:42 PM (H90.11) Jackelyn beckman [place] - [facility] 4 16:00:25 Partial loss of ear ossicles 79999024 Active 2016 Partial loss of ear ossicles , right ear; Note: Date Diagnose d: 02/25/2017 5:45 PM (H74.321 ) Not Available [facility] 4 03:07:40 Conducti ve hearing loss of right ear 9240178209 Active 2022 Conducti ve hearing loss, unilater al, right ear with restrict ed hearing on the contrala teral side; Note: Date Diagnose d: 3 11:11 AM (H90.A11 ) Not Available [facility] 4 03:07:39 Neck pain 69805968 Active 2022 Cervical aron; Note: Date Diagnose d: 3 10:25 AM (M54.2) Not Available [facility] 4 03:07:40 Acute myringit is of right ear 41793577822 83133 Completed 201605/28/2024 Acute myringit is, right ear; Note: Date Diagnose d: 02/25/2017 5:27 PM (H73.001 ) Not Available [facility] 4 03:07:41 Sensorin eural hearing loss in left ear 85066020224 109 Active 2017 Sensorin eural hearing loss, unilater al, left ear, with restrict ed hearing on the contrala teral side; Note: Date Diagnose d: 8 2:35 PM (H90.A22 ) Not Available [facility] 4 03:07:39 Otalgia of right ear 8295140806 Active 2016 Otalgia, right ear; Note: Date Diagnose d: 7 10:55 AM (H92.01) Not Available [facility] 4 03:07:41 Impacted cerumen in right ear 31481900080 91991 Active 2016 Impacted cerumen, right ear; Note: Date Diagnose d: 02/25/2017 5:30 PM (H61.21) Not Available [facility] 4 03:07:41 Follow-u p visit Active 2016 Medical surveill ance followin g complete d treatmen t; Note: Date Diagnose d: 7 10:22 AM (Z09) Not Available [facility] 4 03:07:40 Pain of right temporom andibula r joint 18219574914 125724 Active 2016 Arthralg ia of right temporom andibula r joint; Note: Date Diagnose d: 7 10:55 AM (M26.621 ) Not Available [facility] 4 03:07:39 Mixed conducti ve and sensorin eural hearing loss of right ear 87067742095 105 Active 2017 Mixed conducti ve and sensorin eural hearing loss, unilater al, right ear with restrict ed hearing on the contrala teral side; Note: Date Diagnose d: 8 2:35 PM (H90.A31 ) Not Available [facility] 4 03:07:40 Abnormal auditory percepti on 87160751 Active 2023 GONZALO SERRA MD [address] [place] [address], [place], [phone] , [facility] - [facility] 4 15:25:45 Conducti ve hearing loss 72557095 Active 2023 Conducti ve hearing loss, unilater al, right ear, with unrestri cted hearing on the contrala teral side; Note: Date Diagnose d: 7 1:42 PM (H90.11) Jackelyn beckman MA - [facility] 16:00:25 Conducti ve hearing loss 73838394 Active 2023 Jackelyn beckman MA [facility] 16:00:38 Problem Notes None recorded. Procedures Surgical History Date Name Laterality Status Provider Name and Address Organization Details Recorded Time 08/23/20 24 Tympanometry (78359) completed Jackelyn Alfaro MA [facility] 08/23/2024 15:54:29 08/23/20 24 [employer] (11099) completed Jackelyn Alfaro MA [facility] 08/23/2024 15:54:39 Imaging Results Imaging Date Name Status LastModified by Organiz ation Details LastModified Time 08/24/2024 audiogram completed [email or web address] Information n ot available 08/24/2024 08:40:51 Procedure [...] 24 hr 08/23 completed Medicati on ID: [id number] D uration Value: 30 Brand Name: metoprol [...] mg tablet 08/27 completed Medicati on ID: [id number] R court: () Brand Name: Axert Se [...] both ears 2018 active Medicati on ID: [id number] D uration Value: 5 Prescri bed By Name: NURIA Hutchins nd Name: ofloxaci n Send Method: E-Prescr ibed Sub s Allowed: subs OK Speci al Instruct ion: x 5 days Med icationG enericNa me: ofloxaci n Not Available Not Available Not Available Deep Sea Nasal 0.65 % spray aerosol 2018 active Medicati on ID: [id number] D uration Value: 7 Brand Name: Deep [...] a day 08/23 completed Medicati on ID: [id number] D uration Value: 14 Brand Name: Ciloxan [...] 24 hr 08/27 completed Medicati on ID: [id number] R court: () Brand Name: metoprol ol succinat e Send Method: E-Prescr ibed Sub s Allowed: subs OK Medic ationGen ericName : metoprol ol succinat e Not Available Not Available Not Available lorazepam 1 mg tablet TAKE 1 TAB BY MOUTH 1 HOUR PREPROCE DURE. REPEAT DOSE IN 4 HOURS NEEDED active Not Available Not Available No t Available [place] 5 mg-325 mg tablet 1-2 tablet by mouth 08/23 completed Medicati on ID: [id number] D uration Value: 7 Prescri bed By Name: Eris Patel nd Name: Christiano Danielle nd Method: E-Prescr ibed Sub s Allowed: subs OK Medic ationGen ericName : [place] Not Available Not Available Not Available loratadin [...] drops,seb pension 08/23 completed Medicati on ID: [id number] D uration Value: 7 Prescri bed By [...] Updated DateTime 08/23/2024 157.48 cm 21.9 kg/m2 58915.08 g Cecile Purcell MA - [facility] 08/23/2024 15:10:15 Social History None recorded. Functional Status None recorded. Mental Status None recorded. Family History Nothing Reported. Medical History No medical history recorded. Gynecological HistoryNo gynecological history recorded. Obstetrics History GPAL:G 0 P 0 0 0 0 Past Encounters Encounter ID Performer Location Encounter Start Date Encounter Closed Date Diagnosis/Indication Diagnosis SNOMED-CT Code Diagnosis ICD10 Code Diagnosis Note [id number] GONZALO SERRA MD [facility] [address] [place] [address] 08/23/2024 14:48:05 08/23/2024 16:20:00 Abnormal auditory perception 90735904 H93.291 Otalgia of right ear 266 2791765 H92.01 Conductive hearing loss 92384250 H90.A11 Audiologic al evaluation results:Ri ght ear:{{Norm [...] Garay Member ID Guarantor Name 08/23/2024 1 [place]: [facility] Yo Maya [id number] Katty Yo Trejo Notes Date Note Type Note Provider Name and Address Organization Details Recorded Time 08/23/2024 text/html Hx of of OCR and revision t-plasty 2022. Presents with 3 days of right ear pain and swishing noise. No d/c. Feels a little blocked GONZALO IBARRA MD [address] [place] [address], [place], [phone], [facility] - [facility] 08/23/2024 16:46:08 OBGyn Episode No OBEpisode recorded.
--- OUTSIDE RECORDS SUMMARY | 2024-11-15 11:47 | XMS_ITS | Continuity of Care Document ---
Author Organization [place] - [facility], [facility] Address [address] [place] [address] Care Team Providers Care Revenue Settlements Administrator Name Role Phone YAMILET LAM Primary Care [...] audio gram No observ ation record ed. [email or web address] Not Available 07/28 08:40:51 Result Notes None recorded. Problems Name Problem SNOMED Code Status Onset Date Resolution Date Notes Provider Name and Address Organization Details Recorded Time Sensorin eural hearing loss of bilatera l ears 147084844 Active 2016 Sensorin eural hearing loss, bilatera l; Note: Date Diagnose d: 7 1:36 PM (H90.3) Not Available [facility] 4 03:07:41 Dental caries 00299773 Active 2017 Dental caries, unspecif ied; Note: Date Diagnose d: 8 1:58 PM (K02.9) Not Available Replaced by [facility] 4 03:07:39 Conducti ve hearing loss 75833613 Completed 201605/28/2024 Conducti ve hearing loss, unilater al, right ear, with unrestri cted hearing on the contrala teral side; Note: Date Diagnose d: 7 1:42 PM (H90.11) Jackelyn beckman MA - [facility] 4 16:00:25 Partial loss of ear ossicles 71467996 Active 2016 Partial loss of ear ossicles , right ear; Note: Date Diagnose d: 02/25/2017 5:45 PM (H74.321 ) Not Available Replaced by [facility] 4 03:07:40 Conducti ve hearing loss of right ear 8765728765 Active 2022 Conducti ve hearing loss, unilater al, right ear with restrict ed hearing on the contrala teral side; Note: Date Diagnose d: 3 11:11 AM (H90.A11 ) Not Available Replaced by [facility] 4 03:07:39 Neck pain 02274989 Active 2022 Cervical aron; Note: Date Diagnose d: 3 10:25 AM (M54.2) Not Available Replaced by [facility] 4 03:07:40 Acute myringit is of right ear 64119808409 88063 Completed 201605/28/2024 Acute myringit is, right ear; Note: Date Diagnose d: 02/25/2017 5:27 PM (H73.001 ) Not Available Replaced by [facility] 4 03:07:41 Sensorin eural hearing loss in left ear 27276720098 109 Active 2017 Sensorin eural hearing loss, unilater al, left ear, with restrict ed hearing on the contrala teral side; Note: Date Diagnose d: 8 2:35 PM (H90.A22 ) Not Available [facility] 4 03:07:39 Otalgia of right ear 5251688136 Active 2016 Otalgia, right ear; Note: Date Diagnose d: 7 10:55 AM (H92.01) Not Available [facility] 4 03:07:41 Impacted cerumen in right ear 88592178973 61827 Active 2016 Impacted cerumen, right ear; Note: Date Diagnose d: 02/25/2017 5:30 PM (H61.21) Not Available [facility] 4 03:07:41 Follow-u p visit Active 2016 Medical surveill ance followin g complete d treatmen t; Note: Date Diagnose d: 7 10:22 AM (Z09) Not Available [facility] 4 03:07:40 Pain of right temporom andibula r joint 98124954756 631899 Active 2016 Arthralg ia of right temporom andibula r joint; Note: Date Diagnose d: 7 10:55 AM (M26.621 ) Not Available [facility] 4 03:07:39 Mixed conducti ve and sensorin eural hearing loss of right ear 22728243306 105 Active 2017 Mixed conducti ve and sensorin eural hearing loss, unilater al, right ear with restrict ed hearing on the contrala teral side; Note: Date Diagnose d: 8 2:35 PM (H90.A31 ) Not Available [facility] 4 03:07:40 Abnormal auditory percepti on 43523208 Active 2023 GONZALO SERRA MD [address] [place] [address], [place], [phone] , [facility] - [facility] 4 15:25:45 Conducti ve hearing loss 60310303 Active 2023 Conducti ve hearing loss, unilater al, right ear, with unrestri cted hearing on the contrala teral side; Note: Date Diagnose d: 7 1:42 PM (H90.11) Jackelyn beckman MA [facility] 16:00:25 Conducti ve hearing loss 75363401 Active 2023 Jackelyn beckman MA [facility] 16:00:38 Problem Notes None recorded. Procedures Surgical History Date Name Laterality Status Provider Name and Address Organization Details Recorded Time 08/23/20 24 Tympanometry (99812) completed Jackelyn Alfaro MA [facility] 08/23/2024 15:54:29 08/23/20 24 [employer] (62416) completed Jackelyn Alfaro [facility] 08/23/2024 15:54:39 Imaging Results None recorded. [...] 24 hr 08/23 completed Medicati on ID: [id number] D uration Value: 30 Brand Name: metoprol [...] mg tablet 08/27 completed Medicati on ID: [id number] R court: () Brand Name: Axert Se [...] both ears 2018 active Medicati on ID: [id number] D uration Value: 5 Prescri bed By Name: NURIA Hutchins nd Name: ofloxaci n Send Method: E-Prescr ibed Sub s Allowed: subs OK Elisabeti al Instruct ion: x 5 days Med icationG enericNa me: ofloxaci n Not Available Not Available Not Available Deep Sea Nasal 0.65 % spray aerosol 2018 active Medicati on ID: [id number] D uration Value: 7 Brand Name: Deep [...] a day 08/23 completed Medicati on ID: [id number] D uration Value: 14 Brand Name: Ciloxan [...] 24 hr 08/27 completed Medicati on ID: [id number] R court: () Brand Name: metoprol ol succinat e Send Method: E-Prescr ibed Sub s Allowed: subs OK Medic ationGen ericName : metoprol ol succinat e Not Available Not Available Not Available lorazepam 1 mg tablet TAKE 1 TAB BY MOUTH 1 HOUR PREPROCE DURE. REPEAT DOSE IN 4 HOURS NEEDED active Not Available Not Available No t Available [place] 5 mg-325 mg tablet 1-2 tablet by mouth 08/23 completed Medicati on ID: [id number] D uration Value: 7 Prescri bed By Name: Eris Patel nd Name: [place] Se nd Method: E-Prescr ibed Sub s Allowed: subs OK Medic ationGen ericName : [place] Not Available Not Available Not Available loratadin e 10 mg tablet TAKE 1 TABLET BY MOUTH EVERY MORNING active Not Available Not Available No t Available Laxative (bisacody l) 5 mg tablet,de layed release TAKE 2 TABLETS (2 X 5 MG) ORALLY AT BEDTIME active Not Available Not Available No t Available TobraDex 0.3 %-0.1 % [facility] drops,[facility] 08[facility]23 completed Medicati on ID: [id number] D uration Value: 7 Prescri bed By [...] Updated DateTime 08/23/2024 157.48 cm 21.9 kg/m2 66635.08 g Cecile Purcell MA - [facility] 08/23/2024 15:10:15 Social History None recorded. Functional Status None recorded. Mental Status None recorded. Family History Nothing Reported. Medical History No medical history recorded. Gynecological HistoryNo gynecological history recorded. Obstetrics History GPAL:G 0 P 0 0 0 0 Past Encounters Encounter ID Performer Location Encounter Start Date Encounter Closed Date Diagnosis/Indication Diagnosis SNOMED-CT Code Diagnosis ICD10 Code Diagnosis Note [id number] GONZALO SERRA MD [facility] [address] [phone] 08/23/2024 14:48:05 08/23/2024 16:20:00 Abnormal auditory perception 96209559 H93.291 Otalgia of right ear 080 5064061 H92.01 Conductive hearing loss 14851861 H90.A11 Audiologic al evaluation results:Ri ght ear:{{Norm [...] Garay Member ID Guarantor Name 08/23/2024 1 [place]: [facility] Maya [id number] [facility] Maya Notes Date Note Type Note Provider Name and Address Organization Details Recorded Time 08/23/2024 text/html Hx of of OCR and revision t-plasty 2022. Presents with 3 days of right ear pain and swishing noise. No d/c. Feels a little blocked GONZALO IBARRA MD [address] [place] [address], [phone], [facility] - [facility] 08/23/2024 16:46:08 OBGyn Episode No OBEpisode recorded.
== END 2024-11-15 12:35 | disposition home or self-care (01) ==
PROVIDERS: PCP Student in an Organized Health Care Education/Training Program
DX: M77.11 Lateral epicondylitis, right elbow (principal)
CPT/HCPCS: 99203

== ENCOUNTER → 2024-11-15 11:09 | Outpatient (BNVA) | payer MEDICAID, SELFPAY | PROVIDERS: PCP Student in an Organized Health Care Education/Training Program | DX: M77.11 Lateral epicondylitis, right elbow (principal) | CPT/HCPCS: 99212 ==

== ENCOUNTER 2024-12-02 14:08 | Outpatient (RCR) | payer MEDICAID, SELFPAY ==
--- NOTE | 2024-11-17 14:32 | MHC.OT.EP ---
[address] [phone] Occupational Therapy Plan of Care Patient Name: Katty Lott Date of Evaluation: 11/17/24 Diagnosis: R LATERAL EPICONDYLITIS Pain Location: R LATERAL ELBOW, RADIATING TO SHOULDER Pain Score: 5-10/10 Pain Scale Used: Numeric (0 - 10) Aggravating Factors: PUSHING, PULLING, GRASPING Alleviating Factors: TYLENOL, MASSAGE, HOT WATER, ANTI-INFLAMMATORY CREAM Assessment: MS LOTT IS A RH DOMINANT F WHO REPORTS >1 MONTH HISTORY OF R ELBOW PAIN. SHE STATES THE PAIN CAME ON GRADUALLY AND IS NOW EXPERIENCING DIFFICULTIES WITH HOMEMAKING TASKS, INCLUDING COOKING AND CLEANING. A 70% LIMITATION IS REPORTED PER THE QUICK DASH ASSESSMENT. ONGOING SKILLED OT IS WARRANTED TO ADDRESS AREAS MENTIONED BELOW FOR SUSPECTED LATERAL EPICONDYLITIS. Frequency and Duration: The patient will be seen 2X/WEEK FOR 4 WEEKS Short Term Goals: IND HEP IND USE OF HEAT/ ICE IND JT PROTECTION AND ACTIVITY MODIFICATION STRATEGIES Fdc Goals: QUICK DASH <40% REPORT <3/10 PAIN WITH LIFTING >10 POUNDS WITH IADLs R GROSS GRASP >30 POUNDS Treatment Plan: Therapeutic Exercise Therapeutic Activity Home Exercise Program Splinting Neuro Re-ed Patient Education Desensitization/Sensory Re-ed Edema Control ADL Training Ultrasound NMES Iontophoresis Paraffin Fluidotherapy MHP Cold Packs Joint Mobilization Soft Tissue Mobilization Kinesiotaping Other (see comments) Electronically Signed By: KENIA QURESHI OTR/L Please Sign and return to therapist. Thank you once again for your referral.
--- NOTE | 2024-12-08 14:11 | MHC.OT.DC ---
[address] [phone] F: [phone] Occupational Therapy Discharge Note Patient Name: Katty Lott Provider: Cornelius Moon Diagnosis: R LATERAL EPICONDYLITIS Date of Evaluation: 11/17/24 Date of Discharge: 12/08/24 Treatments to Date: 3 Cancellations to Date: 1 No Shows to Date: 2 Discharge Status: Recommend MD Follow-up Visit Non-compliance Discharge Summary: MS LOTT WAS PROVIDED WITH JT PROTECTION STRATEGIES AND ACTIVITY MODIFICATIONS FOR HER LATERAL EPICONDYLITIS. UNFORTUNATELY, Pt WILL BE DISCHARGED FROM OT DUE TO THE CORE ATTENDANCE POLICY. RECOMMEND MD F/U. Electronically Signed By: KENIA QURESHI OTR/L Reviewed/agree with student documentation: N/A Therapist: Please Sign and return to therapist, thank you for your referral.
== END 2024-12-08 14:15 | disposition home or self-care (01) ==
LOC: HO.OT 14:08
PROVIDERS: PCP Student in an Organized Health Care Education/Training Program
DX: M77.11 Lateral epicondylitis, right elbow (principal)
CPT/HCPCS: 97033; 97035; 97110; 97140; 97165

== ENCOUNTER 2025-02-04 13:02 | Outpatient (AMB) | payer MEDICAID, SELFPAY ==
[2025-02-04 13:08] VITALS: BMI 21.9
--- NOTE | 2025-02-04 13:08 | MHC.OFFVIS ---
Vital Signs 02/04/25 13:08 Height 5 ft 2 in Weight 120 lb BMI 21.9 Intake Visit Reasons: OV-right elbow lateral epicondylitis Intake Note: Katty is a 49 year old right hand dominant female who presents today for a follow up visit for her lateral epicondylitis of right elbow. On 11/15/24 patient was referred to occupational therapy for treatment. Patient states she is doing okay however she continues to have pain. Patient reports taking Tylenol with some relief. 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 On 11/15/24 patient was referred to occupational therapy for treatment. Patient states she is doing okay however she continues to have pain. The patient does report that she does feel that OT is helping at this time. Patient reports taking Tylenol with some relief. [facility] Medical History (Updated 11/15/24 @ 11:43 by JEFF Antonio) Palpitations Nausea Abdominal bloating H. pylori infection Encounter for annual routine gynecological examination Encounter for well woman exam with routine gynecological exam Multinodular goiter (nontoxic) History of Helicobacter pylori infection Gastritis Anxiety and depression History of migraine Hx of perforation of tympanic membrane Surgical History H/O esophagogastroduodenoscopy H/O colonoscopy H/O breast biopsy History of ear surgery Hx of tubal ligation Hx of section Hx of cholecystectomy Family History Father Family hx of hypertension Sister Hx of thyroid cancer History of colon cancer Family hx of hypertension History of breast cancer in female, Onset Age: 42 Maternal Aunt History of breast cancer in female Mother Hx of emphysema Brother Lymphoma Social History (Updated 11/15/24 @ 11:24 by PAUL Plascencia) Household Members: Spouse and Children Housing: Apartment Alcohol intake: never Patient Tobacco Use Status: Never used Tobacco Current occupational status: disabled 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 Sexual orientation: Straight/Heterosexual Gender identity: Female Female Reproductive History Menstrual Age of Menarche: 11 Review of Systems Const All systems reviewed & are unremarkable except as noted in HPI and below Physical Exam Vital Signs: BMI result Body Mass Index 21.9 Extrem Other: Patient's R elbow normal to inspection No erythema, ecchymosis, edema noted No lacerations, abrasions, open areas No evidence of infection Patient reports tenderness to palpation of the lateral epicondyle of the right elbow No tenderness to palpation of the process, medial epicondyle, radial head, or elsewhere in the right elbow Patient is able to extend the elbow to 0 degrees without difficulty Patient is able to flex the elbow to 120 degrees without difficulty Positive Cozen's test on the right Negative reverse Cozen's test on the right No ligamentous laxity with varus/valgus testing Distal sensation intact Capillary refill brisk Assessment & Plan Assessment & Plan (1) Lateral epicondylitis of right elbow: Code(s): M77.11 - Lateral epicondylitis, right elbow Category: Medical Plan 1. Lateral epicondylitis of right elbow I educated the patient about this condition I educated the patient about the typical treatment course At this time, patient educated to continue to go to occupational therapy for treatment of lateral epicondylitis Patient is offered an injection at this time as she is still experiencing pain, but declines Patient was amenable to this plan Patient was advised that if after a proximally in his occupational therapy she is still experiencing significant pain, she can call us for repeat evaluation Coding Level of Care Code Est Pt Level 3 (20374) Diagnoses Lateral epicondylitis of right elbow M77.11
--- OUTSIDE RECORDS SUMMARY | 2025-02-04 13:32 | XMS_ITS | Encounter Summary ---
Author Organization [employer] Address [address] [place] [address] Care Team Providers Care Wire Photo Operator Name Role Phone Khadijah Mccarty MD Primary Care Pro vider Reason for Visit * Reason Comments Med Refill Encounter Details Date Type Department Care Team ([facility] st Contact Info) Description 02/04/2025 Refill [facility] [address] [place], [place] [phone] Michelle Da Silva MD [address] [place] [address] Social History Tobacco Use Types Packs/Day Years Used Date Smoking Tobacco: Never Smokeless Tobacco: Never Alcohol Use Standard Drinks/Week Comments Never 0 (1 standard drink = 0.6 oz pur e alcohol) Depression Answer Date Recorded Patient Health Questionnaire-9 Score 4 02/10/2024 Patient Health Questionnaire-9 Score 4 02/10/2024 Last PHQ-9: Questionnaire Data Not on file 0 02/10/2024 Housing Stability Answer Date Recorded What is your housing situation today? I have portia bahena 01/30/[address] you li ve. Do you have problems with any of the following? None of the above 01/30/2024 Food Insecurity Answer Date Recorded Within the past 12 months, y ou worried that your food would run out before you got money to buy more: Never True 01/30/2024 Within the past 12 months,th e food you bought just didn't last and you didn't have enough money to get more: Never True 02/2024 Transportation Answer Date Recorded In the past 12 months, has l ack of transportation kept you from medical appts, meetings, work or from getting things needed for daily living? No 01/30/2024 Utilities Answer Date Recorded In the past 12 months, has t he electric, gas, oil or water company threatened to shut off services in your home? No 01/30/2024 Depression Answer Date Recorded Patient Health Questionnaire-2 Score 1 02/10/2024 Comments Unknown Sex and Gender Information Value Date Recorded Sex Assigned at Female 08/26/2022 10:16 AM EDT Legal Sex Female 10:16 AM EDT Gender Identity Female 08/26/2022 10:16 AM EDT Sexual Orientation Straight 08/26/2022 10 :16 AM EDT documented as of this encounter Plan of Treatment Upcoming Encounters Date Type Department Care Team (Late st Contact Info) Description 03/04/2025 1:45 PM EDT Office Visit [facility] [address] [place] [address] Khadijah Mccarty MD [address] [place] [address] documented as of this encounter Visit Diagnoses Not on filedocumented in this encounter Additional Health Concerns Assessment Noted Time PHQ-9 Depression Total Score: 4 02/10/20 24 10:44 AM EDT documented as of this encounter Care Teams Wire Photo Operator Relationship Specialty Start Date End Date Khadijah Mccarty MD [address] [place] [address] PCP - General Internal Medicine 08/05/23 documented as of this encounter
--- OUTSIDE RECORDS SUMMARY | 2025-02-04 13:32 | XMS_ITS | Data Portability ---
Author Organization [facility], [facility] Address [address] [place] [id number] Care Team Providers Care Box Stamper Name Role Phone YAMILET LAM Primary Care Provider Assessment Encounter Date Assessment Date Assessment LastModified by Organization Details LastModified Time 08/23/2024 08/23/2024 There is no evidence of middle ear effusions. Suspect mild TMJ and ETD. Audio shows slight worsening of conductive component. Suggest TMJ precautions and re-eval with Dr Janes howe Not available 08/23/2024 16:43:48 12/09/2024 12/09/2024 Right ear remains with healthy and well-healed following cartilage tympanoplasty/ ossiculoplasty . Audiometric testing shows stable mild residual high-frequency conductive hearing loss. Not enough hearing loss to warrant amplification. I gave the patient and her sales floor manager reassurance that the ear remains healthy and free of inflammation. She may follow-up with me as needed [email or web address] Not available 12/09/2024 15:20:30 Plan of Treatment Reminders Order Date Submit Date Provider Last Modified By Organization Details Last Modified Time Details Appointments None record ed. Lab None record ed. Referral None record ed. Procedures None record ed. Surgeries None record ed. Imaging None record ed. Medication Orders None record ed. Patient TargetsNo targets recorded. Patient InstructionsNo instructions recorded. Reason for Referral None Reported. Results Created Date Observation Date Name Description Value Unit Range Abnormal Flag Note LastModifiedBy Organization Detail LastModifiedTime 08/24/20 24 audio gram No observ ation record ed. [email or web address] Not Available 07/28 08:40:51 12/10/19 25 audio gram No observ ation record ed. BARCODE Not Available 2024 09:09:04 12/10/19 25 audio gram No observ ation record ed. BARCODE Not Available 2024 09:09:04 Result Notes None recorded. Problems Name Problem SNOMED Code Status Onset Date Resolution Date Notes Provider Name and Address Organization Details Recorded Time Sensorin eural hearing loss of bilatera l ears 583913621 Active 2016 Sensorin eural hearing loss, bilatera l; Note: Date Diagnose d: 7 1:36 PM (H90.3) Not Available [facility] 4 03:07:41 Dental caries 50775737 Active 2017 Dental caries, unspecif ied; Note: Date Diagnose d: 8 1:58 PM (K02.9) Not Available [facility] 4 03:07:39 Conducti ve hearing loss 52252435 Completed 201605/28/2024 Conducti ve hearing loss, unilater al, right ear, with unrestri cted hearing on the contrala teral side; Note: Date Diagnose d: 7 1:42 PM (H90.11) Jackelyn beckman [place] - [facility] 4 16:00:25 Partial loss of ear ossicles 57577636 Active 2016 Partial loss of ear ossicles , right ear; Note: Date Diagnose d: 02/25/2017 5:45 PM (H74.321 ) Not Available [facility] 4 03:07:40 Conducti ve hearing loss of right ear 0988023296 Active 2022 Conducti ve hearing loss, unilater al, right ear with restrict ed hearing on the contrala teral side; Note: Date Diagnose d: 3 11:11 AM (H90.A11 ) Not Available [facility] 4 03:07:39 Neck pain 71041840 Active 2022 Cervical aron; Note: Date Diagnose d: 3 10:25 AM (M54.2) Not Available [facility] 4 03:07:40 Acute myringit is of right ear 99185075670 93307 Completed 201605/28/2024 Acute myringit is, right ear; Note: Date Diagnose d: 02/25/2017 5:27 PM (H73.001 ) Not Available [facility] 4 03:07:41 Sensorin eural hearing loss in left ear 47238845791 109 Active 2017 Sensorin eural hearing loss, unilater al, left ear, with restrict ed hearing on the contrala teral side; Note: Date Diagnose d: 8 2:35 PM (H90.A22 ) Not Available [facility] 4 03:07:39 Otalgia of right ear 3100986152 Active 2016 Otalgia, right ear; Note: Date Diagnose d: 7 10:55 AM (H92.01) Not Available [facility] 4 03:07:41 Impacted cerumen in right ear 40757311053 99893 Active 2016 Impacted cerumen, right ear; Note: Date Diagnose d: 02/25/2017 5:30 PM (H61.21) Not Available [facility] 4 03:07:41 Follow-u p visit Active 2016 Medical surveill ance followin g complete d treatmen t; Note: Date Diagnose d: 7 10:22 AM (Z09) Not Available [facility] 4 03:07:40 Pain of right temporom andibula r joint 10077503114 338528 Active 2016 Arthralg ia of right temporom andibula r joint; Note: Date Diagnose d: 7 10:55 AM (M26.621 ) Not Available [facility] 4 03:07:39 Mixed conducti ve and sensorin eural hearing loss of right ear 59533810783 105 Active 2017 Mixed conducti ve and sensorin eural hearing loss, unilater al, right ear with restrict ed hearing on the contrala teral side; Note: Date Diagnose d: 8 2:35 PM (H90.A31 ) Not Available [facility] 03:07:40 Abnormal auditory percepti on 42367920 Active 2023 GONZALO SERRA MD [address] [facility],[address], [address] , [place] - [facility] 15:25:45 Conducti ve hearing loss 81205007 Active 2023 Conducti ve hearing loss, unilater al, right ear, with unrestri cted hearing on the contrala teral side; Note: Date Diagnose d: 7 1:42 PM (H90.11) Jackelyn beckman [place] - [facility] 4 16:00:25 Conducti ve hearing loss 78727189 Active 2023 Jackelyn beckman [place] - [facility] 16:00:38 Problem Notes None recorded. Procedures Surgical History Date Name Laterality Status Provider Name and Address Organization Details Recorded Time 12/09/19 25 Comp Audio with Tymps (59051 & 35098) completed MIGUEL RODRIGUEZ [address] [facility],[place] [address], [place], [address], [place] - [facility] 12/09/2024 14:47:57 12/09/19 25 EAC debris removal with microscope completed KADIE MICHELLE MD [address] [facility],[place] [address], [place], [address], [place] - [facility] 12/09/2024 15:15:25 08/23/20 24 Tympanometry (35843) completed Jackelyn Alfaro [place] - [facility] 08/23/2024 15:54:29 08/23/20 24 Air & Bone Audio (21618) completed Jackelyn Alfaro [place] - [facility] 08/23/2024 15:54:39 Imaging Results Imaging Date Name Status LastModified by Organiz ation Details LastModified Time 08/24/2024 audiogram completed [email or web address] Information n ot available 08/24/2024 08:40:51 12/10/2024 audiogram completed [facility] Information no t available 12/10/2024 09:09:12/10/2024 audiogram completed [facility] Information no t available 12/10/2024 09:09:04 Procedure Notes None recorded. Medical Equipment None Reported. Allergies No known drug allergies Medications Name Sig Start Date Stop Date Status Note LastModified by Organization Details LastModified Time medbox status USE DIRECTED active Not Available Not Available No t Available multivita min tablet TAKE 1 TABLET [...] 24 hr 08/23 completed Medicati on ID: [id number] D uration Value: 30 Brand Name: metoprol ol succinat e Send Method: E-Prescr ibed Sub s Allowed: subs OK Speci al Instruct ion: TAKE 1 AND 1/2 TABLETS BY MOUTH EVERY DAY Medi cationGe nericNam e: metoprol ol succinat e Not Available Not Available Not Available rizatript an 10 mg tablet TAKE 1 TABLET BY MOUTH AT ONSET OF MIGRAINE . MAY REPEAT ONCE AFTER 2 HOURS IF NEEDED active Not [...] mg tablet 08/27 completed Medicati on ID: [id number] R court: () Brand Name: Axert Se [...] both ears 2018 active Medicati on ID: [id number] D uration Value: 5 Prescri bed By Name: NURIA Hutchins nd Name: ofloxaci n Send Method: E-Prescr ibed Sub s Allowed: subs OK Speci al Instruct ion: x 5 days Med icationG enericNa me: ofloxaci n Not Available Not Available Not Available Deep Sea Nasal 0.65 % spray aerosol 2018 active Medicati on ID: [id number] D uration Value: 7 Brand Name: Deep Sea Nasal Se nd Method: E-Prescr ibed Sub s Allowed: subs OK Speci al Instruct ion: USE 2 SPRAYS IN EACH NOSTRIL FOUR TIMES DAILY NEEDED M kimmiethomas Pabloadams Name: Deep Sea Nasal Not Available Not [...] a day 08/23 completed Medicati on ID: [id number] D uration Value: 14 Brand Name: Ciloxan [...] Available lidocaine 5 % topical patch APPLY 1 TO 2 PATCHES TOPICALL Y TO SKIN, LEAVE ON FOR 12 HOURS AND OFF FOR 12 HOURS DIRECTED active Not Available Not Available No t Available metronida zole 0.75 % topical cream APPLY TO THE AFFECTED AREA(S) SPARINGL Y TWICE DAILY DIRECTED 10/28 /2024 completed Not Available Not Available Not Available [...] 24 hr 08/27 completed Medicati on ID: [id number] R court: () Brand Name: metoprol ol succinat e Send Method: E-Prescr ibed Sub s Allowed: subs OK Medic ationGen ericName : metoprol ol succinat e Not Available Not Available Not Available lorazepam 1 mg tablet TAKE 1 TAB BY MOUTH 1 HOUR PREPROCE DURE. REPEAT DOSE IN 4 HOURS NEEDED active Not Available Not Available No t Available [place] 5 mg-325 mg tablet 1-2 tablet by mouth 08/23 completed Medicati on ID: [id number] D uration Value: 7 Prescri bed By Name: Eris Patel nd Name: [place] Se nd Method: E-Prescr ibed Sub s Allowed: subs OK Medic ationGen ericName : [place] Not Available Not Available Not Available loratadin e 10 mg tablet TAKE 1 TABLET BY MOUTH EVERY MORNING active Not Available Not Available No t Available naproxen 500 mg tablet TAKE 1 TABLET BY MOUTH TWICE DAILY active Not Available Not Available No t Available Laxative (bisacody l) 5 mg tablet,de layed release TAKE 2 TABLETS (2 X 5 MG) ORALLY AT BEDTIME active Not Available Not Available No t Available TobraDex 0.3 %-0.1 % eye drops,[facility] 08/23 completed Medicati on ID: [id number] D uration Value: 7 Prescri bed By [...] Updated DateTime 08/23/2024 157.48 cm 21.9 kg/m2 43907.08 g Cecile Purcell [facility] 08/23/2024 15:10:15 Date Recorded Body height Body mass index (BMI) Body weight Provider Name and Address Organization Details Last Updated DateTime 12/09/2024 157.48 cm 21 kg/m2 45502.12 g Anjali Yola [facility] 12/09/2024 15:06:02 Social History None recorded. Functional Status None recorded. Mental Status None recorded. Family History Nothing Reported. Medical History No medical history recorded. Gynecological HistoryNo gynecological history recorded. Obstetrics History GPAL:G 0 P 0 0 0 0 Past Encounters Encounter ID Performer Location Encounter Start Date Encounter Closed Date Diagnosis/Indication Diagnosis SNOMED-CT Code Diagnosis ICD10 Code Diagnosis Note [id number] GONZALO SERRA MD [facility] [address] [address] 08/23/2024 14:48:05 08/23/2024 16:20:00 Abnormal auditory perception 88416318 H93.291 Otalgia of right ear 703 3466610 H92.01 Conductive hearing loss 38862753 H90.A11 Audiologic al evaluation results:Ri ght ear:{{Norm [...] Cou ld not maintain a hermetic seal}} [id number] KADIE MICHELLE MD [facility] [address] [place] [address] 12/09/2024 14:04:03 12/09/2024 15:22:25 Conductive hearing loss of right ear 8541548465 H90.A11 Audiologic al evaluation results: Right ear:{{Norm al* Normal through 2 kHz Mild M oderate Mo derately-s evere Isabelle re Profoun d}} {{hearing sloping to a mild slopi ng to a moderate s loping to moderately severe* sl oping to severe slo ping to profound f lat high frequency low frequency mid frequency cookie bite mckoy curve}} {{with sen sorineural hearing loss with condu ctive hearing loss with* mixe d hearing loss with}} {{excellen t* good fa ir poor no measurable }} word recognitio n.Left ear:{{Norm al* Normal through 2 kHz Mild M oderate Mo derately-s evere Isabelle re Profoun d}} {{hearing sloping to a mild slopi ng to a moderate s loping to moderately severe slo ping to severe slo ping to profound f lat high frequency low frequency mid frequency cookie bite mckoy curve hear ing with the exception of a mild SNHL at 8000Hz#}} {{with* se nsorineura l hearing loss with condu ctive hearing loss with mixed hearing loss with}} {{excellen t* good fa ir poor no measurable }} word recognitio n. Tympanomet ry:Right Ear:{{Type A Type As Type Ad* Type C Type C, shallow & rounded Ty pe B Type B with large volume Cou ld not maintain a hermetic seal}}Left Ear:{{Type A* Type As Type Ad Type C Type C, shallow & rounded Ty pe B Type B with large volume Cou ld not maintain a hermetic seal}} Acoustic Reflex Testing: Signal to theRight Ear(uncros sed): {{Normal A bnormal Ab sent* Elev ated Could not maintain a hermetic seal}} Signal to theLeft Ear(uncros sed):{{Nor mal Abnorm al* Absent Elevated Could not maintain a hermetic seal}} Impacted c erumen in right ear 5925263426 855882 H61.21 Impacted squamous debris removed from the right external auditory canal under the binocular microscope . Otalgia of right ear 103 1565975 H92.01 Patient continues to have periodic periauricu lar discomfort related to her underlying TMJ problem. Once again I reaffirmed that this will give her periauricu lar discomfort in the absence of any true otologic disease. Pain of ri ght temporomandibular joint 4500395323 9545980 M26.621 Health Concerns Section Related Observation LastModified by Organization Detai ls LastModified Time None Recorded Concern Status LastModified by Organization Details LastModified Time None Recorded Advance Directives Directive None Recorded Payers Encounter Date Sequence Insurance Name Policy Number Policy Garay Covered Member ID Garay Member ID Guarantor Name 08/23/2024 1 MEDICAID-[place] : [facility] [id number] [facility] 12/09/2024 1 [place]ICA[place] : [facility] [id number] [facility] Notes Date Note Type Note Provider Name and Address Organization Details Recorded Time 08/23/2024 text/html Hx of of OCR and revision t-plasty 2022. Presents with 3 days of right ear pain and swishing noise. No d/c. Feels a little blocked GONZALO IBARRA MD [address] [facility],[place] [address], [place], [address], [place] - [facility] 08/23/2024 16:46:08 12/09/2024 text/html Status post righ t revision transcanal ossiculoplasty back in April 2023. She has a titanium TORP interfacing with cartilage graft in the tympanic membrane. 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 Patient comes in today accompanied by sales floor manager who is helping with Latvian translation. She does notice mild hearing loss in the right ear compared to the left. She still has intermittent periauricular discomfort. KADIE MICHELLE MD [address] [facility],[place] [address], [place], [address], [facility] - [facility] 12/09/2024 15:21:50 OBGyn Episode No OBEpisode recorded.
--- OUTSIDE RECORDS SUMMARY | 2025-02-04 13:32 | XMS_ITS | Encounter Summary ---
Author Organization [employer] Address [address] [place] [address] [address] [place] [address] Care Team Providers Care Shoe Stainer Name Role Phone Shagufta Ruth Primary Care Provider [phone] Khadijah Mccarty MD Primary Care Pro vider Encounter Details Date Type Department Care Team (Late st Contact Info) Description 12/17/2022 Orders Only [facility] PEDS [address] [place] [address] Sarah Araujo LPN Social History Tobacco Use Types Packs/Day Years Used Date Smoking Tobacco: Never Assessed Comments Unknown Sex and Gender Information Value Date Recorded Sex Assigned at Female 08/26/2022 10:16 AM EDT Legal Sex Female 10:16 AM EDT Gender Identity Female 08/26/2022 10:16 AM EDT Sexual Orientation Straight 08/26/2022 10 :16 AM EDT documented as of this encounter Plan of Treatment Upcoming Encounters Date Type Department Care Team (Late Contact Info) Description 03/04/2025 1:45 PM EDT Office Visit [facility] MED[facility] [address] [place] [address] Khadijah Mccarty MD [address] [place] [phone] documented as of this encounter Visit Diagnoses Not on filedocumented in this encounter Care Teams Shoe Stainer Relationship Specialty Start Date End Date Shagufta Ruth FNP PCP - General Family Medicine 06/23/22 08/04/23 Khadijah Mccarty MD [address] [place] [phone] PCP - General Internal Medicine 08/05/23 documented as of this encounter
--- OUTSIDE RECORDS SUMMARY | 2025-02-04 13:32 | XMS_ITS | Encounter Summary ---
Author Organization [employer] Address [address] [place] [address] Care Team Providers Care Ethylene Plant Helper Name Role Phone Khadijah Mccarty MD Primary Care Pro vider Reason for Visit * Reason Comments Med Refill Encounter Details Date Type Department Care Team ([facility] st Contact Info) Description 02/03/2025 Refill [facility] [address] [place] [address] Luna Woodward, ANP [address] [place] [address] Essential hypertension Social History Tobacco Use Types Packs/Day Years [...] 03/04/2025 1:45 PM EDT [facility] [address] [place] [address] Khadijah Mccarty MD [address] [place] [address] documented as of this encounter Visit Diagnoses Diagnosis Essential hypertension Unspecified essential hypertension documented in this encounter Additional Health Concerns Assessment Noted Time PHQ-9 Depression Total Score: 4 02/10/20 24 10:44 AM EDT documented as of this encounter Care Teams Ethylene Plant Helper Relationship Specialty Start Date End Date Khadijah Mccarty MD [address] [place] [address] PCP - General Internal Medicine 08/05/23 documented as of this encounter
--- OUTSIDE RECORDS SUMMARY | 2025-02-04 13:32 | XMS_ITS | Encounter Summary ---
Author Organization [employer] Address [address] [place] [address] Care Team Providers Care Sas Analyst Name Role Phone Khadijah Mccarty MD Primary Care Pro vider Encounter Details Date Type Department Care Team (Late st Contact Info) Description 02/16/2024 Orders Only [facility] [address] [place] [address] ProviderJossie MD Social History Tobacco Use Types Packs/Day Years [...] is your housing situation today? I have portiamaikel bahena 01/30/[address] you [...] Description 03/04/2025 1:45 PM EDT Office Visit [facility] [address] [place] [address] [phone] Khadijah Mccarty MD [address] [place], [place] [phone] documented as of this encounter Procedures Procedure Name Priority Date/Time Associated Diagnosis Comments THINPREP IMAGING PAP AND HPV MRNA E6/E7 WITH REFLEX TO HPV 16,18/45 Routine 07/06/2024 2:54 PM EDT HM COLONOSCOPY Routine 05/12/2018 11:57 AM EDT documented in this encounter Results * ThinPrep Imaging Pap and HPV mRNA E6/E7 with Reflex to HPV 16,18/45 (07/06/2024 2:54 PM EDT) HPV 16 RNA [facility] HPV 18/45 RNA [facility] HPV nRNA E6/E7 Not Detected Not Detected [facility] Comment:Methodology: Transcr iption-Mediated AmplificationThis assay detects E6/E7 viral messenger RNA (mRNA) from 14high-risk HPV types (16,18,31,33,35,39,45,51,52,56,58,59,66,68).Cervical sources are required for HPV testing.If a vaginal source from a patient who has had atotal hysterectomy with removal of cervix wassubmitted, please contact the testing laboratoryfor alternative testing options.For additional information, please refer [email or web address]/faq/BJA737a2(This link if provided for information/educational purposes only.)THIS TEST WAS PERFORMED AT:[facility] [address] [phone] ROUSSEAU MD SOURCE: SEE NOTE [facility] Comment:None given Report Status: [facility] Clinical Information: SEE NOTE [facility] Comment:None given LMP: SEE NOTE [facility] Comment:NONE GIVEN Prev. PAP: SEE NOTE [facility] Comment:NONE GIVEN Prev. BX: SEE NOTE [facility] Comment:NONE GIVEN Statement Of Adequacy: SEE NOTE [facility] Comment:Satisfactory for sherron luation.Endocervical/transformation zone componentpresent. General Categorization: [facility] Interpretation/Result: SEE NOTE [facility] Comment:Cytology Results: Ne gative for intraepitheliallesion or malignancy. Cytology Comment SEE NOTE [facility] Comment:This Pap test has be en evaluated with computerassisted technology. Vacuum Spindle Sander: SEE NOTE [facility] Comment:CUMMINS, CT(ASCP)CT scre ening location: [address] [address] Review Vacuum Spindle Sander: [facility] Pathologist [facility] PAP Infection [facility] See Note SEE NOTE [facility] Comment:EXPLANATORY NOTE:The Pap is a screening test for cervical cancer. It isnot a diagnostic test and is subject to false negativeand false positive results. It is most reliable when asatisfactory sample, regularly obtained, is submittedwith relevant clinical findings and history, and whenthe Pap result is evaluated along with historic andcurrent clinical information. 07/06/2024 2:54 PM EDT 07/07/2024 11:46 AM EDT Narrative [facility] - 07/12/2024 1:14 PM EDT SEE SCANNED RESULTS IN EMR us Generic External Data Provider LAB PATHOLOGY ORD ERABLES Final Result [facility] [address] [place] [address] [phone] * Colonoscopy (05/12/2018 11:57 AM EDT) us Historical Provider HEALTH MAINTENANCE Final Result documented in this encounter Visit Diagnoses Not on filedocumented in this encounter Additional Health Concerns Assessment Noted Time PHQ-9 Depression Total Score: 4 02/10/20 24 10:44 AM EDT documented as of this encounter Care Teams Sas Analyst Relationship Specialty Start Date End Date Khadijah Mccarty MD [address] [place] [phone] PCP - General Internal Medicine 08/05/23 documented as of this encounter
--- OUTSIDE RECORDS SUMMARY | 2025-02-04 13:32 | XMS_ITS | Clinical Summary ---
Author Organization [employer] Address [address] [place] [address] Care Team Providers Care Independent Insurance Adjuster Name Role Phone Khadijah Mccarty MD Primary Care Pro vider Allergies Active Allergy Reactions Criticality Noted Date Comments Sumatriptan 04/15/2012 Other reaction(s): facial numbness & tachycardia, facial numbness & tachycardia per PCP note pt tolerates Axert Medications omeprazole (PriLOSEC) [address] capsule TAKE 1 CAPSULE BY MOUTH EVERY DAY FOR 30 DAYS 04/14/20 22 Active Blood Pressure Monitoring (Omron 3 Series BP Monitor) device USE TO CHECK BLOOD PRESSURE DAILY. LOG RESULTS. 08/23/20 22 Active tiZANidine (Zanaflex) 4 MG tabletIndication s:Muscle spasms of neck TAKE 1 TABLET BY MOUTH THREE TIMES DAILY 90 tablet 1 02/27/20 23 Active Diclofenac Sodium 1 % gelIndications:M uscle spasms of neck APPLY 2 GRAMS TOPICALLY TWICE DAILY IN THE MORNING AND AT BEDTIME NEEDED MUSCLE PAIN 100 g 3 02/04/20 24 Active metoprolol succinate XL (Toprol-XL) 100 MG 24 hr tablet Take 100 mg by mouth in the morning. 11/28/19 24 Active cholecalciferol (Vitamin D-3) 25 MCG (1000 UT) tablet Take 1,000 Units by mouth in the morning. OTC Active Deep Sea Nasal [place] 0.65 % nasal spray USE 2 SPRAYS IN EACH NOSTRIL FOUR TIMES DAILY NEEDED 30 mL 11 03/17/20 24 Active rizatriptan (Maxalt) 10 MG tablet TAKE 1 TABLET BY MOUTH AT ONSET OF MIGRAINE. MAY REPEAT ONCE AFTER 2 HOURS IF NEEDED 9 tablet 5 09/13/20 24 Active omega-3 (Fish Oil) 1000 MG capsule TAKE 1 CAPSULE BY MOUTH EVERY DAY 90 capsule 1 09/21/20 24 Active docusate sodium (Colace) 100 MG capsule TAKE 1 CAPSULE BY MOUTH TWICE DAILY IN THE MORNING AND IN THE EVENING 180 capsule 1 10/11/20 24 Active loratadine (Claritin) 10 MG tabletIndication s:Seasonal allergic rhinitis, unspecified trigger TAKE 1 TABLET BY MOUTH EVERY MORNING 90 tablet 1 10/11/20 24 Active vitamin E 180 MG (400 UNIT) capsuleIndicatio ns:Iron deficiency anemia, unspecified iron deficiency anemia type TAKE 1 CAPSULE BY MOUTH EVERY MORNING 90 capsule 1 10/11/20 24 Active Ferrous Sulfate (iron) 325 (65 Fe) MG tabletIndication s:Iron deficiency anemia, unspecified iron deficiency anemia type TAKE 1 TABLET BY MOUTH TWICE DAILY IN THE MORNING AND IN THE EVENING 180 tablet 1 10/11/20 24 Active lidocaine (Lidoderm) 5 % patch APPLY 1 TO 2 PATCHES TOPICALLY TO SKIN, LEAVE ON FOR 12 HOURS AND OFF FOR 12 HOURS DIRECTED 60 patch 1 11/29/19 25 Active magnesium oxide (Mag-Ox) 400 MG tablet TAKE 1 TABLET BY MOUTH EVERY MORNING 90 tablet 12/07/19 25 Active amitriptyline (Elavil) 25 MG tabletIndication s:Migraine with aura and without status migrainosus, not intractable TAKE 3 TABLETS BY MOUTH AT BEDTIME 270 tablet 1 12/31/19 25 Active Multiple Vitamin (Multivitamin) tablet TAKE 1 TABLET BY MOUTH EVERY EVENING WITH FOOD 90 tablet 1 12/31/19 25 Active Ascorbic Acid (vitamin C) 500 MG tablet TAKE 1 TABLET BY MOUTH TWICE DAILY IN THE MORNING AND IN THE EVENING WITH IRON 180 tablet 1 12/31/19 25 Active PARoxetine (Paxil) 20 MG tablet TAKE 1 TABLET BY MOUTH EVERY MORNING 30 tablet 2 01/29/20 25 Active losartan (Cozaar) 25 MG tabletIndication s:Essential hypertension TAKE 1 TABLET BY MOUTH EVERY MORNING 90 tablet 02/04/20 25 Active PARoxetine (Paxil) 20 MG tablet TAKE 1 TABLET BY MOUTH EVERY MORNING 90 tablet 10/05/20 24 025 Discontinued losartan (Cozaar) 25 MG tabletIndication s:Essential hypertension TAKE 1 TABLET BY MOUTH EVERY MORNING 90 tablet 11/11/19 25 04/10/2 025 Discontinued Active Problems Problem Noted Date Diagnosed Date Right ear pain 06/18/2024 GERD (gastroesophageal reflux disease) Overview (11/09/2024): Barium swallow via [facility] November 08, 2024 IMPRESSION: 1. Moderate gastroesophageal reflux. 2. Thickened appearance of the areae gastricae, suggestive of gastritis. Mastalgia 04/12/2024 Loss of filling from access hole of tooth 2023 Localized gingivitis 03/19/2024 Herpes simplex type 1 antibody positive 03/17/20 Prediabetes 03/17/2024 Health care maintenance 02/12/2024 History of anemia 02/12/2024 Palpitations 05/16/2023 Overview (07/02/2023): Care managed by Cardiology Visit 06/24/23: Patient's symptoms of palpitation most likely related extra systoles such as PVCs. This needs to be proven. Will obtain given the frequency of symptoms a 30 day event monitor to assess for symptoms and frequency. Will also obtain echocardiogram to evaluate for structural heart disease. Further treatment based on the findings. She is currently on metoprolol therapy and heart rate is on the slower side. Will avoid empirically increasing the therapy at this point time unless she has very frequent PVCs may need alternative form of therapy. Advised stress mitigation strategies. Avoidance of stimulants was discussed. Follow up in the clinic in 2 months time, sooner p.r.n.. Assessment & Plan (05/16/2023 1:20 PM EDT): Has appt with Cardiology 06/14/23 at 2 pm. 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 Almost all of them have increased in size from last U/S on 03/21/22 One meets criteria for biopsy. There is also increased texture in the thyroid gland which may indicate thyroiditis 05/13/23: Biopsy performed Results pending. Assessment & Plan (05/16/2023 1:22 PM EDT): Had biopsy appt 05/13/23 Results pending F/u PRN Hyperlipidemia 06/04/2021 Hypertensive retinopathy 11/23/2018 Essential hypertension 12/07/2015 Overview (02/08/2023): Pre-eclampsia 2012, premature delivery. Started nifedipine since she was , developed LE edema. Changed to Metoprolol 25mg 09/14/2013, has been on since Irritable bowel syndrome 12/07/2015 Migraine with aura 12/07/2015 Severe recurrent major depression 12/07/2015 Resolved Problems Problem Noted Date Diagnosed Date Resolved Date Intercostal neuritis 04/12/2024 024 Encounters Date Type Department Care Team Description 02/04/2025 Refill [facility] [address] [place] [address] Michelle Da Silva MD 02/03/2025 Refill [facility] [address] [place] [address] Luna Woodward ANP Essential hypertension 01/27/2025 Refill [facility] [address] [place] [address] Michelle Da Silva MD 01/07/2025 Population Health Risk Score [facility] [address] [phone] Provider, Population Health Generic 01/04/2025 Telephone [facility] [address] [place] [address] Khadijah Mccarty MD May recalls 12/30/2024 Refill [facility] [address] [place] [address] Khadijah Mccarty MD Migraine with aura and without status migrainosus, not intractable 12/06/2024 Refill [facility] [address] [place] [address] Khadijah Mccarty MD 11/27/2024 Refill [facility] [address] [place] [address] Michelle Da Silva MD 11/11/2024 Refill [facility] [address] [place] [address] Khadijah Mccarty MD Essential hypertension 11/08/2024 Orders Only [facility] External Provider, [facility] Gastroesophageal reflux disease, unspecified whether esophagitis present (Primary Dx) from Last 3 Months Immunizations Name Administration Dates Next Due Hep B, adult 08/27/2017,03/27/2017,02/24/2017 Influenza injectable quadriv alent IIV4 with preservative 11/05/2017,08/01/2016,07/18/2015 Influenza injectable quadriv alent preservative free 01/03/2022,07/28/2019,11/23/2018 Influenza, IIV3, injectable 08/25/2008 Influenza, Split (incl. mike fied surface antigen) 10/28/2013,07/06/2012 TD (adult), 2 Lf tetanus tox oid, preservative free, adsorbed 08/22/2022,08/18/2002 Tdap 04/15/2012 Family History Medical History Relation Name Comments Lymphoma Brother breast ,thyroic ,colon ca Sister Relation Name Status Comments Brother Sister Social History Tobacco Use Types Packs/Day Years Used Date Smoking Tobacco: Never Smokeless Tobacco: Never Tobacco Cessation:Counseling Given: Not Answered Alcohol Use Standard Drinks/Week Comments Never 0 (1 standard drink = 0.6 oz pur e alcohol) Depression Answer Date Recorded Patient Health Questionnaire-9 Score 4 02/10/2024 Patient Health Questionnaire-9 Score 4 02/10/2024 Last PHQ-9: Questionnaire Data Not on file 0 02/10/2024 Housing Stability Answer Date Recorded What is your housing situation today? I have portia sing 01/30/[address] you li [...] Orientation Straight 08/26/2022 10 :16 AM EDT Last Filed Vital Signs Vital Sign Reading Time Taken Comments Blood Pressure 136/80 10/04/2024 1:11 PM EST Pulse 86 10/04/2024 1:11 PM EST Temperature 35.6 ??C (96.1 ??F) 10/04/2024 1:11 PM ES T Respiratory Rate 16 10/04/2024 1:11 PM EST Oxygen Saturation 98% 10/04/2024 1:11 PM EST Inhaled Oxygen Concentration - - Weight 54.4 kg (120 lb) 10/04/2024 1:11 PM EST Height 157.5 cm (5' 2 ) 10/04/2024 1:11 PM EST Body Mass Index 21.95 10/04/2024 1:11 PM EST Plan of Treatment Upcoming Encounters Date Type Department Care Team (Late st Contact Info) Description 03/04/2025 1:45 PM EDT Office Visit [facility] [address] [place] [phone] Khadijah Mccarty MD [address] [place] [phone] Health Maintenance Due Date Last Done Comments CT Colonography 1975 FIT DNA/Cologuard 1975 FOBT 1975 Sigmoidoscopy 1975 Family Planning (PISQ) 1991 Mammogram 2016 Colonoscopy 05/12/2023 05/12/2018 Colorectal Cancer Screening 05/12/2023 FIT 06/21/2023 06/21/2022 Dental Oral Exam 07/27/2023 01/23/2023 Dental Prophylaxis 07/27/2023 01/23/2023 COVID-19 Vaccine ( season) 2024 Influenza Vaccine (#1) 2024 , 07/28/2019, 11/23/2018, Additional history exists Depression Screening 02/09/2025 02/10/2024, 02/10/20 24 SDOH Screening 02/09/2025 02/10/2024 Diabetes: Hemoglobin A1C 03/12/2025 024, 08/22/2022, 06/01/2021 Dental X-Ray: Bitewings 04/13/2025 04/12/2024, 01/23 Alcohol/Substance Use Screening 10/04/2025 10/04/2024 Tobacco Screening 10/04/2025 10/04/2024 Dental X-Ray: Full Mouth 01/24/2026 01/23/2023 Zoster Vaccines (1 of 2) 2026 Pap Smear 07/06/2027 07/06/2024 Cervical Cancer Screening 07/06/2029 HPV/Cotest 07/06/2029 07/06/2024 Lipid Panel 08/17/2029 08/17/2024, 05/04/2024, 08/22/2022, Additional history exists DTaP/Tdap/Td Vaccines (3 - Td or Tdap) 08/22/2032 08/22/2022, 04/15/2012, 08/18/2002 RSV Patients and Patients Aged 60 years or older (1 - 1-dose 75+ series) 2051 Hepatitis B Vaccines Completed 08/27/2017, 03/27/2017, 02/24/2017 HIV Screening Completed 03/12/2024, 06/01/2021 Hepatitis C Screening Completed 03/12/2024, 021 HIB Vaccines Aged Out No longer eligi ble based on patient's age to complete this topic HPV Vaccines Aged Out No longer eligi ble based on patient's age to complete this topic Hepatitis A Vaccines Aged Out No long er eligible based on patient's age to complete this topic IPV Vaccines Aged Out No longer eligi ble based on patient's age to complete this topic Meningococcal Vaccine Aged Out No jody aranza eligible based on patient's age to complete this topic Pneumococcal Vaccine: Pediatrics (0 to 5 Years) and At-Risk Patients (6 to 49) Years) Aged Out No longer eligible based on patient's age to complete this topic RSV under 20 months Aged Out No longe r eligible based on patient's age to complete this topic Rotavirus Vaccines Aged Out No longer eligible based on patient's age to complete this topic Procedures Procedure Name Priority Date/Time Associated Diagnosis Comments FL ESOPHAGUS BARIUM SWALLOW WITH AIR Routine 11/08/2024 9:45 AM EST LIPID PANEL, STANDARD Routine 08/17/2024 10:20 AM EDT Hyperlipidemia, unspecified hyperlipidemia type THINPREP IMAGING PAP AND HPV MRNA E6/E7 WITH REFLEX TO HPV 16,18/45 Routine 07/06/2024 2:54 PM EDT BITEWING - SINGLE RADIOGRAPHIC IMAGE Routine 04/12/2024 11:00 AM EDT Dental caries HEPATITIS C AB W/REFL TO HCV RNA, QN, PCR Routine 03/12/2024 9:19 AM EDT Annual physical exam HIV 1/2 ANTIGEN/ANTIBODY, FOURTH GENERATION W/RFL Routine 03/12/2024 9:19 AM EDT Annual physical exam HEMOGLOBIN A1C Routine 03/12/2024 9:19 AM EDT Annual physical exam PROPHYLAXIS - ADULT Routine 01/23/2023 1 :00 PM EDT Encounter for dental examination Gingivitis INTRAORAL - COMPLETE SERIES OF RADIOGRAPHIC IMAGES Routine 01/23/2023 1:00 PM EDT Gingivitis COMPREHENSIVE ORAL EVALUATION - NEW OR ESTABLISHED PATIENT Routine 01/23/2023 1:00 PM EDT Encounter for dental examination Closed fracture of tooth, initial encounter Dental caries Gingivitis Defective dental yarsani Dental calculus Periodontal disease Malocclusion Asymptomatic periapical periodontitis ZZZ HISTORICAL FECAL IMMUNOCHEMICAL TEST X1 (FIT) Routine 06/21/2022 12:10 PM EDT HM COLONOSCOPY Routine 05/12/2018 11:57 AM EDT from Last 3 Months or Most Recently Relevant to Health Maintenance Results * FL Esophagus Barium Swallow w/Air (11/08/2024 9:45 AM EST) Anatomical Region Laterality Modality Head, Neck Radiographic Susana ging 11/08/2024 9:45 AM EST Narrative 11/09/2024 3:56 PM EST ? [facility] ?[address] ?[place] [address] ? Fluoroscopy Report ? Signed ? Patient: Yo,Katyt ?MR#: [id number] ? : 1975 ?Acct:[id number] ? Age/Sex: 48 / F ?ADM Date: 11/08/24 ? Loc: HO.XRAY ? Attending Dr: Desi RANDALL-C ? Ordering Physician: Desi Guerra-Shilpa ?? Date of Service: 11/08/24 ?? Procedure(s): FL barium swallow with air ?? Accession Number(s): [id number] ? cc: Desi Guerra-C; Khadijah Mccarty MD ? EXAMINATION: ?? XR FLUOROSCOPY UPPER GI WITH AIR ? CLINICAL INFORMATION: ?? Reflux ? COMPARISON: ?? None ? TECHNIQUE: ?? Fluoroscopic air contrast upper GI examination was performed utilizing ?? standard techniques with thin and thick barium and effervescent ?? granules. Numerous spot images were obtained. ? FINDINGS: ?? Dual and single contrast images of the esophagus demonstrate normal ?? caliber, contour, and mucosal pattern. No evidence of stricture, mass, ?? or ulcerations identified. Esophageal peristalsis was normal. ? No hiatal hernia is identified. Gastroesophageal reflux is seen up to ?? the midesophagus. ? Dual contrast and single contrast images of the stomach demonstrated a ?? normal contour. The areae gastricae have a thickened appearance, ?? suggestive of gastritis. Contrast freely passed into the gastric antrum ?? and duodenal bulb without delay. ? Single and air-contrast images of the duodenal bulb demonstrate no ?? abnormality. The duodenal sweep has a normal appearance, course, and ?? mucosal fold appearance. The imaged proximal jejunum has a normal fold ?? pattern and caliber. ? FLUOROSCOPY TIME: ?? 3 minutes 58 seconds ? Number of Spot Images: 8 ?? Number of Cine: 11 ? DOSE AREA PRODUCT: ?? 1482 uGy-m2 (microgray-meter squared) ? FL/FL barium swallow with air ?? IMPRESSION: ?? 1. Moderate gastroesophageal reflux. ? 2. Thickened appearance of the areae gastricae, suggestive of gastritis. ? This procedure was performed by Reji Rios PA-C, and supervised by ?? Dr. To ? Electronically signed by: ??Lane To MD ??11/09/2024 03:54 PM EST RP ? Dictated By: ?Reji Rios ? Signed By: ?<Electronically signed by Reji Rios in OV> ? 11/09/24 1554 ?<Electronically signed by Lane To MD in OV> ? 11/09/24 1556 ? DD/ 0945 ? TD/TT: 11/08/24 1000 ? Melting Supervisor: ? Procedure Note Jim, Image - 11/09/2024 [place] [address] Fluoroscopy Report Signed Patient: Yoli Ram#: [id number] : 1975Acct:[id number] Age/Sex: 48 / FADM Date: 11/08/24 Loc: [facility] Attending Dr: Desi REEDER Ordering Physician: Desi Guerra Date of Service: 11/08/24 Procedure(s): FL barium swallow with air Accession Number(s): [id number] cc: Desi Guerra; Khadijah Mccarty MD EXAMINATION: XR FLUOROSCOPY UPPER GI WITH AIR CLINICAL INFORMATION: Reflux COMPARISON: None TECHNIQUE: Fluoroscopic air contrast upper GI examination was performed utilizing standard techniques with thin and thick barium and effervescent granules. Numerous spot images were obtained. FINDINGS: Dual and single contrast images of the esophagus demonstrate normal caliber, contour, and mucosal pattern. No evidence of stricture, mass, or ulcerations identified. Esophageal peristalsis was normal. No hiatal hernia is identified. Gastroesophageal reflux is seen up to the midesophagus. Dual contrast and single contrast images of the stomach demonstrated a normal contour. The areae gastricae have a thickened appearance, suggestive of gastritis. Contrast freely passed into the gastric antrum and duodenal bulb without delay. Single and air-contrast images of the duodenal bulb demonstrate no abnormality. The duodenal sweep has a normal appearance, course, and mucosal fold appearance. The imaged proximal jejunum has a normal fold pattern and caliber. FLUOROSCOPY TIME: 3 minutes 58 seconds Number of Spot Images: 8 Number of Cine: 11 DOSE AREA PRODUCT: 1482 uGy-m2 (microgray-meter squared) FL/FL barium swallow with air IMPRESSION: 1. Moderate gastroesophageal reflux. 2. Thickened appearance of the areae gastricae, suggestive of gastritis. This procedure was performed by Reji Rios PA-C, and supervised by Dr. To Electronically signed by: Lane To MD 11/09/2024 03:54 PM [facility] Dictated By: Reji Rios Signed By: <Electronically signed by Reji Rios in OV> 11/09/24 1554 <Electronically signed by Lane To MD in OV> 11/09/24 1556 DD/ 0945 TD/TT: 11/08/24 1000 Melting Supervisor: us [facility] External Provider IMG FLU OROSCOPY PROCEDURES Final Result * (ABNORMAL) Lipid Panel, Standard (08/17/2024 10:20 AM EDT) Triglycerides 178(H) <150 mg/dL [facility] Comment:Desirable Triglyceri de: less than 150 mg/dLBorderline High Triglyceride 150-199 mg/dLHigh Triglyceride: 200-499 mg/dLVery High Triglyceride: greater than or equal to 5OO mg/dL Cholesterol 183 <200 mg/dL [facility] Comment:Desirable Cholestero l: less than 200 mg/dLBorderline High Cholesterol: 200-239 mg/dLHigh Cholesterol: greater than 239 mg/dL LDL Cholesterol Calculated 107(H) <100 mg/dL [facility] Comment:Desirable LDL: less than 100 mg/dLNear Optimal/Above Optimal LDL: 110- 129 mg/dLBorderline High LDL: 130-159 mg/dLHigh LDL: 160-189 mg/dLVery High LDL: greater than or equal to 190 mg/dL HDL Cholesterol 41 >40 mg/dL [facility] Comment:Desirable HDL: great er than 40 mg/dL Note: This HDL assay may give artificially low results in patients with liver disease. Blood Venous blood specimen / Unknown 08/17/2024 10:20 AM EDT 08/17/2024 11:04 AM EDT Khadijah Woodall MD LAB BLOOD ORDERAB LES Final Result [facility] [address] [place] [phone] * ThinPrep Imaging Pap and HPV mRNA E6/E7 with Reflex to HPV 16,18/45 (07/06/2024 2:54 PM EDT) HPV 16 RNA TNP [facility] HPV 18/45 [facility] HPV nRNA E6/E7 Not Detected Not Detected [facility] Comment:Methodology: Transcr iption-Mediated AmplificationThis assay detects E6/E7 viral messenger RNA (mRNA) from 14high-risk HPV types (16,18,31,33,35,39,45,51,52,56,58,59,66,68).Cervical sources are required for HPV testing.If a vaginal source from a patient who has had atotal hysterectomy with removal of cervix wassubmitted, please contact the testing laboratoryfor alternative testing options.For additional information, please refer [email or web address]/KCZ508m6(This link if provided for information/educational purposes only.)THIS TEST WAS PERFORMED AT:[employer] [address] [phone] ROUSSEAU MD SOURCE: SEE NOTE [facility] Comment:None given Report Status: [facility] Clinical Information: SEE NOTE [facility] Comment:None given LMP: SEE NOTE [facility] Comment:NONE GIVEN Prev. PAP: SEE NOTE [facility] Comment:NONE GIVEN Prev. BX: SEE NOTE [facility] Comment:NONE GIVEN Statement Of Adequacy: SEE NOTE [facility] Comment:Satisfactory for sherron luation.Endocervical/transformation zone componentpresent. General Categorization: [facility] Interpretation/Result: SEE NOTE [facility] Comment:Cytology Results: Ne gative for intraepitheliallesion or malignancy. Cytology Comment SEE NOTE [facility] Comment:This Pap test has be en evaluated with computerassisted technology. Road Machine Runner: SEE NOTE [facility] Comment:CUMMINS, CT(ASCP)CT scre ening location: [address] Machine Runner: [facility] Pathologist [facility] PAP Infection [facility] See Note SEE NOTE [facility] Comment:EXPLANATORY NOTE:The Pap is a screening test for cervical cancer. It isnot a diagnostic test and is subject to false negativeand false positive results. It is most reliable when asatisfactory sample, regularly obtained, is submittedwith relevant clinical findings and history, and whenthe Pap result is evaluated along with historic andcurrent clinical information. 07/06/2024 2:54 PM EDT 07/07/2024 11:46 AM EDT Narrative [facility] - 07/12/2024 1:14 PM EDT SEE SCANNED RESULTS IN EMR us Generic External Data Provider LAB PATHOLOGY ORD ERABLES Final Result [facility] [address] [place] [phone] [phone] * Hepatitis C Antibody with Reflex to HCV, RNA, Quantitative, Real-Time PCR (03/12/2024 9:19 AM EDT) Hepatitis C Antibody Nonreactive Nonreactive [facility] Comment:Antibodies to HCV no t detected; does not exclude early acuteHCV infection. Blood Venous blood specimen / Unknown 03/12/2024 9:19 AM EDT 03/12/2024 11:38 AM EDT us Khadijah Woodall MD LAB BLOOD ORDERAB LES Final Result Performing Organization Address [facility]/ZIP Co de Phone Number [facility] [address] [place] [phone] * HIV-1/2 Antigen and Antibodies, Fourth Generation, with Reflexes (03/12/2024 9:19 AM EDT) HIV AB/AG Nonreactive Nonreactive [facility] Comment:HIV-1 p24 Ag and/or HIV-1/HIV-2 Ab not detected.A test result that is nonreactive does not exclude thepossibility of exposure to or infection with HIV-1 and/orHIV-2. Nonreactive results in this assay for individualswith prior exposure to HIV-1 and/or HIV-2 may be due toantigen and antibody levels that are below the limit ofdetection of this assay.The [employer] HIV Ag/Ab Combo assay result andsupplemental assay results should be interpreted inconjunction with the patient's clinical presentation,history and other laboratory results. If the results areinconsistent with clinical evidence, additional testing issuggested to confirm the result. Blood Venous blood specimen / Unknown 03/12/2024 9:19 AM EDT 03/12/2024 11:38 AM EDT us Khadijah Woodall MD LAB BLOOD ORDERAB LES Final Result Performing Organization Address [facility]/ZIP Co de Phone Number [facility] [address] [place] [phone] * Hemoglobin A1c (03/12/2024 9:19 AM EDT) Hemoglobin A1c 5.8 <6.0 % [facility] Comment:Hemoglobin A1C Refer ence Range Adults: 4.8 - 6.0 % Non diabetic: < 6.0 % Goal: < 7.0 %Additional Action Suggested: > 8.0 %Note: Hemoglobin A1c results are invalid for patients with abnormal amounts of HbF. Blood transfusions may impact the HbA1c concentration in the patient sample. Estimated Average Glucose 120 mg/dL [facility] Comment:eAG = Estimated ave rage glucose which is %A1C expressed asaverage glucose, using the formula of the [id number] Glucose study (ADAG), Diabetes Care, Vol.31,#8,May. 2007 Blood Venous blood specimen / Unknown 03/12/2024 9:19 AM EDT 03/12/2024 11:38 AM EDT Khadijah Woodall MD LAB BLOOD ORDERAB LES Final Result [facility] [address] [place] [address] [phone] * Fecal immunochemical test x1 (FIT) (06/21/2022 12:10 PM EDT) FIT Date 1 06/21/2022 [facility] Comment: BOTH SPECEIMENS SUBMITTED WERE TIMED AND DATED FOR 06/21/2022 AT 2:20PM FIT Date 2 06/21/2022 [facility] FIT1 NEGATIVE NEGATIVE [facility] FIT2 NEGATIVE NEGATIVE [facility] 06/21/2022 12:1 0 PM EDT Historical Provider HISTORICAL/NON ORDERABLE LABS Final Result [facility] [address] * Hm Colonoscopy (05/12/2018 11:57 AM EDT) Historical Provider HEALTH MAINTENANCE Final Result from Last 3 Months or Most Recently Relevant to Health Maintenance Insurance [facility] C3 [place] [facility] [place] [id number] [place] [id number] Care Teams Independent Insurance Adjuster Relationship Specialty Start Date End Date Khadijah Mccarty MD [address] [place] [id number] PCP - General Internal Medicine 08/05/23
--- OUTSIDE RECORDS SUMMARY | 2025-02-04 13:32 | XMS_ITS | Encounter Summary ---
Author Organization Software 2000 [facility] Address [address] [place] [address] 7t [place] [address] Care Team Providers Care Metaphysician Name Role Phone Shagufta Ruth FAVIOLA Primary Care Provider [phone]- [phone] Khadijah Mccarty MD Primary Care Pro vider Encounter Details Date Type Department Care Team (Late st Contact Info) Description 02/19/2023 Orders Only [facility] [address] [place] [address] [phone] Lisbet Vieira LPN Social History Tobacco Use Types Packs/Day Years Used Date Smoking Tobacco: Never Assessed Comments Unknown Sex and Gender Information Value Date Recorded Sex Assigned at Female 08/26/2022 10:16 AM EDT Legal Sex Female 10:16 AM EDT Gender Identity Female 08/26/2022 10:16 AM EDT Sexual Orientation Straight 08/26/2022 10 :16 AM EDT COVID-19 Exposure Response Date Recorded In the last 10 days, have axel ko been in contact with someone who was confirmed or suspected to have Coronavirus/COVID-19? No / Unsure 02/21/2023 1:07 PM EDT documented as of this encounter Plan of Treatment Upcoming Encounters Date Type Department Care Team (Late st Contact Info) Description 03/04/2025 1:45 PM EDT Office Visit [facility] [address] [place] [address] [phone] Khadijah Mccarty MD [address] [place], [place] [phone] documented as of this encounter Visit Diagnoses Not on filedocumented in this encounter Care Teams Metaphysician Relationship Specialty Start Date End Date Shagufta Ruth FNP PCP - General Family Medicine 06/23/22 08/04/23 Khadijah Mccarty MD [address] [place] [phone] PCP - General Internal Medicine 08/05/23 documented as of this encounter
== END 2025-02-04 13:54 | disposition home or self-care (01) ==
LOC: HO.HOS 13:03
PROVIDERS: PCP Student in an Organized Health Care Education/Training Program
DX: M77.11 Lateral epicondylitis, right elbow (principal)
CPT/HCPCS: 99213

== ENCOUNTER → 2025-02-04 13:02 | Outpatient (BNVA) | payer MEDICAID, SELFPAY | PROVIDERS: PCP Student in an Organized Health Care Education/Training Program | DX: M77.11 Lateral epicondylitis, right elbow (principal) | CPT/HCPCS: 99212 ==

== ENCOUNTER 2025-06-20 08:01 | Outpatient (REF) | payer MEDICAID, SELFPAY ==
--- OUTSIDE RECORDS SUMMARY | 2025-06-20 08:05 | XMS_ITS | Encounter Summary ---
Author Organization [employer] Address [address] [place] [address] 7 [place] [address] Care Team Providers Care Farm Appraiser Name Role Phone Shagufta Ruth Primary Care Provider Khadijah Murillo MD Primary Care Pro vider Encounter Details Date Type Department Care Team (Late st Contact Info) Description 12/17/2022 Orders Only [facility] [address] [place], [place] [phone] Sarah Araujo LPN Social History Tobacco Use [...] Care Team (Late st Contact Info) Description 06/22/2025 9:45 AM EDT Office Visit [facility] [address] [place] [address] Khadijah Mccarty MD [address] [place] [phone] documented as of this encounter Visit Diagnoses Not on filedocumented in this encounter Care Teams Farm Appraiser Relationship Specialty Start Date End Date Shagufta Ruth FNP PCP - General Family Medicine 06/23/22 08/04/23 Khadijah Mccarty MD [address] [place] [phone] PCP - General Internal Medicine 08/05/23 documented as of this encounter
--- OUTSIDE RECORDS SUMMARY | 2025-06-20 08:06 | XMS_ITS | Patient Health Record ---
Author Organization [facility] Address [address] [place] [address] Care Team Providers Care Morning Show Host Name Role Phone Yasir Fletcher Unavailable [phone] Reason For Referral No Information Plan Of Treatment No Information
[2025-06-20 11:11] LABS: Hematocrit 36.9 % (37.0-47.0); Hemoglobin 12.4 g/dl (12.0-16.0); Mean Corpuscular HGB Conc 33.6 g/dl (31.0-35.0); Mean Corpuscular Hemoglobin 31.6 pg (27.0-33.0); Mean Corpuscular Volume 93.9 fL (80.0-98.0); NRBC Abs Auto 0.000 X10*3/uL (0.0-0.012); NRBC Pct Auto 0.0 /100WBC (0.0-0.2); Platelet Count 251 X10*3/uL (160-400); Red Blood Count 3.93 X10*6/uL (4.20-5.50); White Blood Count 7.8 X10*3/uL (4.8-10.8)
[2025-06-20 11:18] LABS: Hemoglobin A1C 124.3642 umol/L; Total Hemoglobin (HGBA1C) 3188.1868 umol/L
[2025-06-20 11:33] LABS: Alanine Aminotransferase 19 U/L (0-31); Albumin Level 4.7 g/dL (3.5-5.0); Alkaline Phosphatase 86 U/L (39-117); Anion Gap 12 (12-20); Aspartate Amino Transferase 29 U/L (5-31); Blood Urea Nitrogen 20 mg/dL (9-16); Calcium 9.5 mg/dL (8.4-10.2); Carbon Dioxide 29 mmol/L (22-29); Chloride 105 mmol/L (96-108); Cholesterol 209 mg/dL (<200); Estimated Glomerular Filt Rate > 60; HDL Cholesterol 34 mg/dL (>40); Iron 79 mcg/dL (30-160); Percent Iron Saturation 34 % (15-50); Potassium 3.6 mmol/L (3.3-5.1); Sodium 142 mmol/L (135-145); Total Iron Binding Capacity 229 mcg/dL (228-428); Total Protein 7.6 g/dL (6.5-8.0); Triglycerides 279 mg/dL (<150); Unsaturated Iron Binding 150 ug/dL
[2025-06-20 11:48] LABS: HBS Num1 102.71 mIU/mL (0-7.99); HBc Num1 0.14 S/CO (0.00-0.79); HBsAGNum1 0.42 S/CO (0.00-0.99); HIV Num 1 0.06 S/CO (0.00-0.99); Hepatitis B Surface Antigen Negative (Negative); ~HepC Num1 0.14 S/CO (0.00-0.79); ~Hepatitis B Surface Antibody REACTIVE (Nonreactive); ~Hepatitis C Antibody Nonreactive (Nonreactive)
[2025-06-20 11:49] LABS: Syphilis Screen Nonreactive (Nonreactive)
[2025-06-20 11:55] LABS: Ferritin 283 ng/mL (10-250)
[2025-06-20 11:59] LABS: Microalbum/Creatinine Ratio Ur 42.5 ug/mg cr (<30)
== END 2025-06-20 08:02 | disposition home or self-care (01) ==
LOC: HO.HHCL 08:01
PROVIDERS: PCP Student in an Organized Health Care Education/Training Program; Visit Provider Student in an Organized Health Care Education/Training Program
DX: Z00.00 Encounter for general adult medical examination without abnormal findings (principal); I10 Essential (primary) hypertension; Z11.3 Encounter for screening for infections with a predominantly sexual mode of transmission; Z11.4 Encounter for screening for human immunodeficiency virus [HIV]; Z11.59 Encounter for screening for other viral diseases
CPT/HCPCS: 36415; 80053; 80061; 82043; 82570; 82728; 83036; 83540; 84443; 85027; 86704; 86706; 86780; 86803; 87340; 87389

== ENCOUNTER 2025-06-30 13:18 | Outpatient (AMB) | payer MEDICAID, SELFPAY ==
[2025-06-30 13:27] VITALS: BP 124/72; PULSE 77; BMI 22.8
--- NOTE | 2025-06-30 13:27 | MHC.OFFVIS ---
Vital Signs 06/30/25 13:27 Height 5 ft 2 in Weight 124 lb 12.506 oz BMI 22.8 BP 124/72 Blood Pressure Location Lt brachial Position Sitting Pulse 77 Pulse Source Monitor Intake Visit Reasons: 1 yr f/up Fish Machine Feeder Required: No Assembly Line Supervisor: Assembly Line Supervisor Present Allergies sumatriptan (From IMITREX) Allergy (Mild, Verified 06/30/25 13:29) NAUSEA Medication List - Last Reconciled 06/30/25 by Linda Dewitt, CUTTING AND PRINTING MACHINE OPERATOR-C acetaminophen (Tylenol Extra Strength) 500 mg PO Q6H PRN amitriptyline 25 mg PO DAILY ascorbic acid (vitamin C) (Vitamin C) 500 mg PO bisacodyl (Dulcolax (bisacodyl)) 10 mg (2 x 5 mg) PO BEDTIME 2 days eletriptan (Relpax) 40 mg PO Q2-4H PRN ferrous sulfate 324 mg PO DAILY lidocaine 5% (Lidoderm) 1 patch topical loratadine 10 mg PO QAM PRN losartan 25 mg PO QAM metoprolol succinate ER 100 mg PO QAM multivitamin 1 tab PO QPM omega 6-ptp-rwv-fish oil 300 mg (120 mg- 180mg)-1,000 mg 1 cap PO DAILY omeprazole 40 mg PO DAILY paroxetine HCl (Paxil) 20 mg PO DAILY polyethylene glycol 3350 (Miralax) 238 grams PO ONCE 1 day rizatriptan 10 mg PO DIRECTED PRN simethicone 180 mg PO QID vitamin E (dl, acetate) 180 mg PO QAM HPI HPI 1 yr f/up: Details: Katty is a 49-year-old female with past medical history of hypertension, atrial tachycardia who presents for follow-up. Today she reports that she has been doing well overall. She will feel brief palpitations lasting less than 1 minute, occurring randomly. No chest discomfort, shortness of breath, lightheadedness, presyncope, syncope, falls. No PND, orthopnea or edema. Compliant with her meds. Still Drinks 2 caffeinated beverages daily. No routine exercise. is present. He is assisting with Indonesian translation at their request. [facility] Medical History Palpitations Nausea Abdominal bloating H. pylori infection Encounter for annual routine gynecological examination Encounter for well woman exam with routine gynecological exam Multinodular goiter (nontoxic) History of Helicobacter pylori infection Gastritis Anxiety and depression History of migraine Hx of perforation of tympanic membrane Surgical History H/O esophagogastroduodenoscopy H/O colonoscopy H/O breast biopsy History of ear surgery Hx of tubal ligation Hx of section Hx of cholecystectomy Family History Father Family hx of hypertension Sister Hx of thyroid cancer History of colon cancer Family hx of hypertension History of breast cancer in female, Onset Age: 42 Maternal Aunt History of breast cancer in female Mother Hx of emphysema Brother Lymphoma Social History Household Members: Spouse and Children Housing: Apartment Alcohol intake: never Patient Tobacco Use Status: Never used Tobacco Current occupational status: disabled 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 Sexual orientation: Straight/Heterosexual Gender identity: Female Female Reproductive History Menstrual Age of Menarche: 11 Review of Systems Const All systems reviewed & are unremarkable except as noted in HPI and below ENT Denies dizziness Card Denies chest pain, Denies chest pain at rest, Denies chest pain with activity, Reports rapid heart rate (brief heart palpitations), Denies pedal edema, Denies edema, Denies leg edema, Denies lightheadedness, Denies palpitations, Denies dyspnea, Denies dyspnea on exertion and Denies orthopnea Resp Denies cough, Denies dyspnea and Denies dyspnea on exertion GI Denies hematochezia and Denies change in stool character Musc Denies abnormal gait, Reports limited range of motion, Reports muscle cramps, Denies muscle weakness, Denies numbness, Denies radiating pain into limb, Denies stiffness and Denies tingling Neuro Denies abnormal gait, Denies dizziness, Denies numbness and Denies tingling Endo Denies palpitations Physical Exam Vital Signs: Last Vital Signs Pulse 77 06/30/25 13:27 BP 124/72 06/30/25 13:27 BMI result Body Mass Index 22.8 Const General: cooperative, healthy appearing, comfortable and no acute distress Orientation/consciousness: patient oriented x3 Neck Neck: Yes normal visual inspection and Yes no JVD Resp Effort & Inspection: normal respiratory effort Auscultation: clear to auscultation bilaterally, no crackles, no rales, no rhonchi and no wheezes Cardio Jugular venous distension: no JVD Rate: regular rate Rhythm: regular rhythm Heart sounds: S1 normal heart sound present, S2 normal heart sound present, no murmurs and no rubs Neuro General: patient oriented x3 Extrem General: Yes normal to inspection, No no pedal edema and No calf tenderness Psych Appearance: grossly normal Mental Status: mental status grossly normal Speech and movement: Normal speech and movement present Office Procedures EKG Details: Today read by me, normal sinus rhythm with sinus arrhythmia, rate 77, QTC 420 milliseconds [id number], Complete Assessment & Plan Assessment & Plan (1) Palpitations: Code(s): R00.2 - Palpitations Category: Medical Plan: Reports of heart palpitations, brief rapid heartbeat lasting less than 1 minute and resolving. Cardiac event monitor done for 30 days starting 07/23/2023 showing sinus rhythm, heart rate range 11/05/2056, rare PACs, short runs of atrial ectopy consistent with paroxysmal atrial tachycardia. Symptoms mostly controlled with use of metoprolol XL 100 mg daily. She still drinks 2 caffeinated beverages daily. Recommended use of decaf or reduce her beverages down to 1 daily. Recommend good hydration, increasing her physical activity. Emergency care if needed for sustained rapid palpitations. Cardiology follow-up in 1 year, sooner if needed to reassess control of palpitation. (2) Atrial tachycardia: Code(s): I47.19 - Other supraventricular tachycardia Category: Medical Plan: As above (3) Hypertension: Code(s): I10 - Essential (primary) hypertension Category: Medical Qualifiers: Hypertension type: primary hypertension Qualified Code(s): I10 - Essential (primary) hypertension Plan: Blood pressure goal less than 130/80. Well controlled. No med changes made Plan Time spent on chart review, documentation, interview and assessment Coding Level of Care Code Est Pt Level 3 (32421) Complex EM visit Add On G2211 Diagnoses Palpitations R00.2 Atrial tachycardia I47.19 Primary hypertension I10 Hypertension type: primary hypertension CPT Codes EKG - CPT: 84972-[id number], Complete ([id number]) Time Spent (min) 24
--- OUTSIDE RECORDS SUMMARY | 2025-06-30 14:34 | XMS_ITS | Encounter Summary ---
Author Organization [employer] Address [address] [place] [address] [address] [place] [address] Care Team Providers Care Stitch Rubber Name Role Phone Shagufta Ruth Primary Care Provider Khadijah Murillo MD Primary Care Pro vider Encounter Details Date Type Department Care Team (Late st Contact Info) Description 12/17/2022 Orders Only [facility]S [address] [place] [address] Sarah Araujo LPN Social History Tobacco Use Types Packs/Day Years Used Date Smoking Tobacco: Never Assessed Comments Unknown Sex and Gender Information Value Date Recorded Sex Assigned at Female 08/26/2022 10:16 AM EDT Legal Sex Female 10:16 AM EDT Gender Identity Female 08/26/2022 10:16 AM EDT Sexual Orientation Straight 08/26/2022 10 :16 AM EDT documented as of this encounter Plan of Treatment Not on file documented as of this encounter Visit Diagnoses Not on filedocumented in this encounter Care Teams Stitch Rubber Relationship Specialty Start Date End Date Shagufta Ruth FNP PCP - General Family Medicine 06/23/22 08/04/23 Khadijah Mccarty MD [address] [place] [address] [phone] PCP - General Internal Medicine 08/05/23 documented as of this encounter
--- OUTSIDE RECORDS SUMMARY | 2025-06-30 14:34 | XMS_ITS | Encounter Summary ---
Author Organization [employer] Address [address] [place] [address] Care Team Providers Care Ehr Trainer Name Role Phone Khadijah Mccarty MD Primary Care Pro vider Encounter Details Date Type Department Care Team (Late st Contact Info) Description 02/16/2024 Orders Only [facility] [address] [place], [place] [phone] ProviderJossie MD Social History Tobacco Use Types [...] on file documented as of this encounter Procedures Procedure [...] RNA [facility] HPV 18/45 RNA [facility] HPV nRNA E6/E7 Not Detected Not Detected [facility] Comment:Methodology: Transcr iption-Mediated AmplificationThis assay detects E6/E7 viral messenger RNA (mRNA) from 14high-risk HPV types (16,18,31,33,35,39,45,51,52,56,58,59,66,68).Cervical sources are required for HPV testing.If a vaginal source from a patient who has had atotal hysterectomy with removal of cervix wassubmitted, please contact the testing laboratoryfor alternative testing options.For additional information, please refer [email or web address]/faq/ESI113k2(This link if provided for information/educational purposes only.)THIS TEST WAS PERFORMED AT:[facility] [place] [phone] ROUSSEAU MD SOURCE: SEE NOTE [facility] Comment:None given Report Status: [facility] Clinical Information: SEE NOTE [facility] Comment:None given LMP: SEE NOTE [facility] Comment:NONE GIVEN Prev. PAP: SEE NOTE [facility] Comment:NONE GIVEN Prev. BX: SEE NOTE [facility] Comment:NONE GIVEN Statement Of Adequacy: SEE NOTE [facility] Comment:Satisfactory for sherron luation.Endocervical/transformation zone componentpresent. General Categorization: [facility] Interpretation/Result: SEE NOTE [facility] Comment:Cytology Results: Ne gative for intraepitheliallesion or malignancy. Cytology Comment SEE NOTE [facility] Comment:This Pap test has be en evaluated with computerassisted technology. Claims Collector: SEE NOTE [facility] Comment:[place], CT(ASCP)CT scre ening location: [place] [address] Review Claims Collector: [facility] Pathologist [facility] PAP Infection [facility] See Note SEE NOTE [facility] Comment:EXPLANATORY NOTE:The Pap is a screening test for cervical cancer. It isnot a diagnostic test and is subject to false negativeand false positive results. It is most reliable when asatisfactory sample, regularly obtained, is submittedwith relevant clinical findings and history, and whenthe Pap result is evaluated along with historic andcurrent clinical information. 07/06/2024 2:54 PM EDT 07/07/2024 11:46 AM EDT Narrative [facility] - 07/12/2024 1:14 PM EDT SEE SCANNED RESULTS IN EMR us Generic External Data Provider LAB PATHOLOGY ORD ERABLES Final Result [facility] [address] [place] [address] [phone] * Hm Colonoscopy (05/12/2018 11:57 AM EDT) us Historical Provider MD HEALTH MAINTENANCE Final Result documented in this encounter Visit Diagnoses Not on filedocumented in this encounter Additional Health Concerns Assessment Noted Time PHQ-9 Depression Total Score: 4 02/10/20 24 10:44 AM EDT documented as of this encounter Care Teams Ehr Trainer Relationship Specialty Start Date End Date Khadijah Mccaryt MD [address] [place] [phone] PCP - General Internal Medicine 08/05/23 documented as of this encounter
--- OUTSIDE RECORDS SUMMARY | 2025-06-30 14:34 | XMS_ITS | Patient Health Record ---
Author Organization [facility] Address [address] [place] [address] Care Team Providers Care Branch Service Specialist Name Role Phone Yasir Fletcher Unavailable [phone] Reason For Referral No Information Plan Of Treatment No Information
--- OUTSIDE RECORDS SUMMARY | 2025-06-30 14:34 | XMS_ITS | Encounter Summary ---
Author Organization [employer] Address [address] [place] [address] 7 [place] [address] Care Team Providers Care Director Of Billing Name Role Phone Shagufta Ruth Primary Care Provider Khadijah Murillo MD Primary Care Pro vider Encounter Details Date Type Department Care Team ([facility] st Contact Info) Description 02/19/2023 Orders Only [facility] [address] [place], [place] [phone] Lisbet Vieira LPN Social History Tobacco Use [...] on filedocumented in this encounter Care Teams Director Of Billing Relationship Specialty Start Date End Date Shagufta Ruth FNP PCP - General Family Medicine 06/23/22 08/04/23 Khadijah Mccarty MD [address] [place] [address] PCP - General Internal Medicine 08/05/23 documented as of this encounter
--- OUTSIDE RECORDS SUMMARY | 2025-06-30 14:34 | XMS_ITS | Encounter Summary ---
Author Organization [employer] Address [address] [facility] 7t [place] [address] Care Team Providers Care Technical Solutions Consultant Name Role Phone Khadijah Mccarty MD Primary Care Pro vider Encounter Details Date Type Department Care Team (Latest Contact Info) Description 06/20/2025 Results Follow-Up [facility] [address] [place] [address] Khadjiah Mccarty MD [address] [place] [address] Albumin, Random Urine W/Creatinine, CBC, Comprehensive Metabolic Panel, Additional followed-up results: 11 Social History Tobacco Use Types Packs/Day Years Used Date Smoking Tobacco: Never Smokeless Tobacco: Never Alcohol Use Standard Drinks/Week Comments Never 0 (1 standard drink = 0.6 oz pur e alcohol) Depression Answer Date Recorded Patient Health Questionnaire-9 Score 0 03/04/2025 Patient Health Questionnaire-9 Score 0 03/04/2025 Last PHQ-9: Questionnaire Data Not on file 0 03/04/2025 Housing Stability Answer Date Recorded What is your housing situation today? I have portia bahena 03/04/[address] you li ve. Do you have problems with any of the following? None of the above 03/04/2025 Food Insecurity Answer Date Recorded Within the past 12 months, y ou worried that your food would run out before you got money to buy more: Never True 03/04/2025 Within the past 12 months,th e food you bought just didn't last and you didn't have enough money to get more: Never True 06/2025 Transportation Answer Date Recorded In the past 12 months, has l ack of transportation kept you from medical appts, meetings, work or from getting things needed for daily living? No 03/04/2025 Utilities Answer Date Recorded In the past 12 months, has t he electric, gas, oil or water company threatened to shut off services in your home? No 03/04/2025 Depression Answer Date Recorded Patient Health Questionnaire-2 Score 0 03/04/2025 Internet Access Answer Date Recorded Internet Access Q1 Yes 03/04/2025 Internet Access Q2 Not on file 03/04/2025 Comments Unknown Sex and Gender Information Value Date Recorded Sex Assigned at Female 08/26/2022 10:16 AM EDT Legal Sex Female 10:16 AM EDT Gender Identity Female 08/26/2022 10:16 AM EDT Sexual Orientation Straight 08/26/2022 10 :16 AM EDT documented as of this encounter Miscellaneous Notes * Result Encounter Note - Khadijah Woodall MD - 06/20/2025 2:46 PM EDT Please call patient to advise to come to already scheduled apt with me to go over abnormal labs Thanks documented in this encounter Plan of Treatment Not on file documented as of this encounter Visit Diagnoses Not on filedocumented in this encounter Additional Health Concerns Assessment Noted Time PHQ-9 Depression Total Score: 0 03/04/20 25 2:28 PM EDT documented as of this encounter Care Teams Technical Solutions Consultant Relationship Specialty Start Date End Date Khadijah Mccarty MD [address] [place] [phone] PCP - General Internal Medicine 08/05/23 documented as of this encounter
--- OUTSIDE RECORDS SUMMARY | 2025-06-30 14:34 | XMS_ITS | Clinical Summary ---
Author Organization [employer] Address [address] [place] [address] [address] [place] [address] Care Team Providers Care Hold Worker Name Role Phone Khadijah Mccarty MD Primary [...] 08/23/20 22 Active tiZANidine (Zanaflex) 4 MG tabletIndicatio ns:Muscle spasms of neck TAKE 1 TABLET BY MOUTH THREE TIMES DAILY 90 tablet 1 02/27/20 23 Active metoprolol succinate XL (Toprol-XL) 100 MG 24 hr tablet Take 100 mg by mouth in the morning. 11/28/19 24 Active cholecalciferol (Vitamin D-3) 25 MCG (1000 UT) tablet Take 1,000 Units by mouth in the morning. OTC Active Deep Sea Nasal [place] 0.65 % nasal spray USE 2 SPRAYS IN EACH NOSTRIL FOUR TIMES DAILY NEEDED 30 mL 11 03/17/20 24 Active amitriptyline (Elavil) 25 MG tabletIndicatio ns:Migraine with aura and without status migrainosus, not [...] IRON 180 tablet 1 12/31/19 25 Active rizatriptan (Maxalt) 10 MG tablet TAKE 1 TABLET BY MOUTH AT ONSET OF MIGRAINE. MAY REPEAT ONCE AFTER 2 HOURS IF NEEDED 9 tablet 5 03/03/20 25 Active Diclofenac Sodium 1 % gelIndications: Muscle spasms of neck APPLY 2 GRAMS TOPICALLY TWICE DAILY IN THE MORNING AND AT BEDTIME NEEDED FOR MUSCLE PAIN 100 g 3 03/16/20 25 Active magnesium oxide (Mag-Ox) 400 MG tablet TAKE 1 TABLET BY MOUTH EVERY MORNING 90 tablet 03/18/20 25 Active vitamin E 180 MG (400 UNIT) capsuleIndicati ons:Iron deficiency anemia, unspecified iron deficiency anemia type TAKE 1 CAPSULE BY MOUTH EVERY MORNING 90 capsule 1 03/29/20 25 Active loratadine (Claritin) 10 MG tabletIndicatio ns:Seasonal allergic rhinitis, unspecified trigger TAKE 1 TABLET BY MOUTH EVERY MORNING 90 tablet 1 04/15/20 25 Active Calcium Antacid 500 MG chewable tablet CHEW 1 TABLET BY MOUTH EVERY DAY NEEDED FOR INDIGESTION OR HEARTBURN 30 tablet 1 05/09/20 25 Active PARoxetine (Paxil) 20 MG tablet TAKE 1 TABLET BY MOUTH EVERY MORNING 30 tablet 2 05/09/20 25 Active omega-3 (Fish Oil) 1000 MG capsule TAKE 1 CAPSULE BY MOUTH EVERY DAY 90 capsule 1 05/17/20 25 Active losartan (Cozaar) 25 MG tabletIndicatio ns:Essential hypertension TAKE 1 TABLET BY MOUTH EVERY MORNING 90 tablet 1 05/17/20 25 Active docusate sodium (Colace) 100 MG capsule TAKE 1 CAPSULE BY MOUTH TWICE DAILY IN THE MORNING AND IN THE EVENING 180 capsule 1 05/17/20 25 Active lidocaine (Lidoderm) 5 % patch APPLY 1 TO 2 PATCHES TOPICALLY TO SKIN. LEAVE ON FOR 12 HOURS AND OFF FOR 12 HOURS DIRECTED 60 patch 1 06/09/20 25 Active ferrous gluconate (Fergon) 324 (38 Fe) MG tablet Take 1 tablet (324 mg) by mouth with breakfast. 30 tablet 2 06/22/20 25 2025 Active Ferrous Sulfate (iron) 325 (65 Fe) MG tabletIndicatio ns:Iron deficiency anemia, unspecified iron deficiency anemia type TAKE 1 TABLET BY MOUTH TWICE DAILY IN THE MORNING AND IN THE EVENING 180 tablet 1 03/29/20 25 2024 Discontinued(O ther) lidocaine (Lidoderm) 5 % patch APPLY 1 TO 2 PATCHES TOPICALLY TO SKIN, LEAVE ON FOR 12 HOURS AND OFF FOR 12 HOURS DIRECTED 60 patch 1 04/11/20 25 2024 Discontinued Active Problems Problem Noted Date Diagnosed Date Lateral epicondylitis of right elbow 03/04/2025 Right ear pain 06/18/2024 GERD (gastroesophageal reflux disease) Overview (11/09/2024): Barium swallow via [facility] November 08, 2024 IMPRESSION: 1. Moderate [...] ear 02/08/2023 Overview (02/08/2023): Right ossiculoplasty (surgical tenriism of the sound transmitting mechanism of the [...] Encounters Date Type Department Care Team Description 06/22/2025 9:45 AM EDT Office Visit [facility] [address] [place] [address] Khadijah Mccarty MD Essential hypertension (Primary Dx); Iron deficiency anemia, unspecified iron deficiency anemia type; Health care maintenance; Multinodular goiter 06/22/2025 Travel 06/21/2025 Telephone [facility] [address] [place] [address] Khadijah Mccarty MD CHART PREP 06/20/2025 Results Follow-Up [facility] [address] [place] [address] Khadijah Mccarty MD Albumin, Random Urine W/Creatinine, CBC, Comprehensive Metabolic Panel, Additional followed-up results: 11 06/08/2025 Refill [facility] [address] [place] [address] Khadijah Mccarty MD 05/16/2025 Refill [facility] [address] [place] [address] Michelle Da Silva MD 05/16/2025 Refill [facility] [address] [place] [address] Khadijah Mccarty MD Essential hypertension 05/08/2025 Refill [facility] [address] [place] [address] Khadijah Mccarty MD 04/21/2025 Telephone [facility] [address] [place] [address] Khadijah Mccarty MD CHART PREP 04/15/2025 Refill [facility] [address], [place] [phone] Michelle Da Silva MD Seasonal allergic rhinitis, unspecified trigger 04/10/2025 Refill [facility] [address] [place] [address] Khadijah Mccarty MD from Last 3 Months Immunizations Immunization Administration Dates Next Due Hep B, adult [...] Sign Reading Time Taken Comments Blood Pressure 130/80 06/22/2025 9:51 AM EDT Pulse 80 06/22/2025 9:51 AM EDT Temperature 36.2 C (97.1 F) 06/22/2025 9:51 AM EDT Respiratory Rate 20 06/22/2025 9:51 AM EDT Oxygen Saturation 99% 03/04/2025 2:14 PM EDT Inhaled Oxygen Concentration - - Weight 56.5 kg (124 lb 9.6 oz) 06/22/2025 9:51 A M EDT Height 157.5 cm (5' 2 ) 06/22/2025 9:51 AM EDT Body Mass Index 22.79 06/22/2025 9:51 AM EDT Plan of Treatment Health Maintenance Due Date Last Done Comments CT Colonography 1976 FIT DNA/Cologuard 1976 FOBT 1976 Sigmoidoscopy 1976 Family Planning (PISQ) 1991 Mammogram 2016 Colonoscopy 05/12/2023 05/12/2018 Colorectal Cancer Screening 05/12/2023 FIT 06/21/2023 06/21/2022 Dental Oral Exam 07/27/2023 01/23/2023 Dental Prophylaxis 07/27/2023 01/23/2023 Dental X-Ray: Bitewings 04/13/2025 04/12/2024, 01/23 COVID-19 Vaccine ( season) 2025 Influenza Vaccine (#1) 2025 , 07/28/2019, 11/23/2018, Additional history exists Dental X-Ray: Full Mouth 01/24/2026 01/23/2023 Alcohol/Substance Use Screening 03/04/2026 03/04/2025 Depression Screening 03/04/2026 03/04/2025, 03/04/20 Disability Screening 03/04/2026 03/04/2025 SDOH Screening 03/04/2026 03/04/2025 Tobacco Screening 03/04/2026 03/04/2025 Diabetes: Hemoglobin A1C 06/20/2026 025, 03/12/2024, 08/22/2022, Additional history exists Zoster Vaccines (1 of 2) 2026 Pap Smear 07/06/2027 07/06/2024 Cervical Cancer Screening 07/06/2029 HPV/Cotest 07/06/2029 07/06/2024 Lipid Panel 06/20/2030 06/20/2025, 07/28, 03/12/2024, Additional history exists DTaP/Tdap/Td Vaccines (3 - Td or Tdap) 08/22/2032 08/22/2022, 04/15/2012, 08/18/2002 RSV Patients and Patients Aged 60 years or older (1 - 1-dose 75+ series) 2051 Hepatitis B Vaccines Completed 08/27/2017, 03/27/2017, 02/24/2017 HIV Screening Completed 06/20/2025, 02/24, 06/01/2021 Hepatitis C Screening Completed 06/20/2025 , 03/12/2024, 06/01/2021 HIB Vaccines Aged Out No longer eligi [...] patient's age to complete this topic Meningococcal B Vaccine Aged Out No l onger eligible based on patient's age to complete this topic Meningococcal Vaccine Aged Out No jody aranza eligible based on patient's age to complete this topic Pneumococcal Vaccine: Pediatrics (0 to 5 Years) and At-Risk Patients (6 to 49) Years Aged Out No longer eligible based on patient's age to complete this topic RSV under 20 months Aged Out No longe r eligible based on patient's age to complete this topic Rotavirus Vaccines Aged Out No longer eligible based on patient's age to complete this topic Procedures Procedure Name Priority Date/Time Associated Diagnosis Comments FERRITIN Routine 06/20/2025 8:10 AM EDT Annual physical exam IRON AND TOTAL IRON BINDING CAPACITY Routine 06/20/2025 8:10 AM EDT Annual physical exam TSH W/REFLEX TO FT4 Routine 06/20/2025 8 :10 AM EDT Annual physical exam SYPHILIS SCREEN Routine 06/20/2025 8:10 AM EDT Annual physical exam LIPID PANEL, STANDARD Routine 06/20/2025 8:10 AM EDT Annual physical exam HIV 1/2 ANTIGEN/ANTIBODY, FOURTH GENERATION W/RFL Routine 06/20/2025 8:10 AM EDT Annual physical exam HEPATITIS C AB W/REFL TO HCV RNA, QN, PCR Routine 06/20/2025 8:10 AM EDT Annual physical exam HEPATITIS B SURFACE ANTIBODY, QUALITATIVE Routine 06/20/2025 8:10 AM EDT Annual physical exam HEPATITIS B SURFACE ANTIGEN, EIA Routine 06/20/2025 8:10 AM EDT Annual physical exam HEPATITIS B CORE AB TOTAL Routine 06/20/2025 8:10 AM EDT Annual physical exam HEMOGLOBIN A1C Routine 06/20/2025 8:10 AM EDT Annual physical exam COMPREHENSIVE METABOLIC PANEL Routine 06/20/2025 8:10 AM EDT Annual physical exam CBC Routine 06/20/2025 8:10 AM EDT Annual physical exam ALBUMIN, RANDOM URINE W/CREATININE Routine 06/20/2025 8:10 AM EDT Annual physical exam THINPREP IMAGING PAP AND HPV MRNA E6/E7 WITH REFLEX TO HPV 16,18/45 Routine 07/06/2024 2:54 PM EDT BITEWING - SINGLE RADIOGRAPHIC IMAGE Routine 04/12/2024 11:00 AM EDT Dental caries PROPHYLAXIS - ADULT Routine 01/23/2023 1:00 PM EDT Encounter for dental examination Gingivitis INTRAORAL - COMPLETE SERIES OF RADIOGRAPHIC IMAGES Routine 01/23/2023 1:00 PM EDT Gingivitis COMPREHENSIVE ORAL EVALUATION - NEW OR ESTABLISHED PATIENT Routine 01/23/2023 1:00 PM EDT Encounter for dental examination Closed fracture of tooth, initial encounter Dental caries Gingivitis Defective dental tenriism Dental calculus Periodontal disease Malocclusion Asymptomatic periapical periodontitis ZZZ HISTORICAL FECAL IMMUNOCHEMICAL TEST X1 (FIT) Routine 06/21/2022 12:10 PM EDT HM COLONOSCOPY Routine 05/12/2018 11:57 AM EDT from Last 3 Months or Most Recently Relevant to Health Maintenance Results * Syphilis Screen (06/20/2025 8:10 AM EDT) Syphilis Screen Nonreactive Nonreactive [facility] Blood 06/20/2025 8:10 AM EDT 06/20/2025 11:03 AM EDT us Khadijah Woodall MD LAB BLOOD ORDERAB LES Final Result Performing Organization Address [facility] [[email or web address]] Co de Phone Number [facility] [address] [place] [phone] * TSH with Reflex to Free T4 (06/20/2025 8:10 AM EDT) TSH reflex Free T4 1.42 0.32 - 4.0 uIU/mL [facility] Blood 06/20/2025 8:10 AM EDT 06/20/2025 11:03 AM EDT us Khadijah Woodall MD LAB BLOOD ORDERAB LES Final Result Performing Organization Address City/[facility]/ZIP Co de Phone Number [facility] [address] [place] [phone] * (ABNORMAL) Albumin, Random Urine W/Creatinine (06/20/2025 8:10 AM EDT) Creatinine, Urine 148.20 mg/dL [facility] Microalbumin Urine 63.0 mg/L H [facility] Microalbum Creatinine Ratio Ur 42.5(H) <30 ug/mg cr [facility] Comment:Albumin/Creatinine R atio Reference Ranges: Normal: < 30 ug/mg creatinine Microalbuminuria: 30 - 300 ug/mg creatinineClinical Albuminuria: > 300 ug/mg creatinine Urine (Urine, Random) 06/20/2025 8:10 AM EDT 06/20/2025 11:00 AM EDT us Khadijah Woodall MD LAB URINE ORDERAB LES Final Result [facility] [address] [place] [phone] * Hepatitis C Antibody with Reflex to HCV, RNA, Quantitative, Real-Time PCR (06/20/2025 8:10 AM EDT) Hepatitis C Antibody Nonreactive Nonreactive [facility] Comment:Antibodies to HCV no t detected; does not exclude early acuteHCV infection. Blood Venous blood specimen / Unknown 06/20/2025 8:10 AM EDT 06/20/2025 11:03 AM EDT us Khadijah Woodall MD LAB BLOOD ORDERAB LES Final Result [facility] [address] [place] [phone] * Iron And Total Iron Binding Capacity (06/20/2025 8:10 AM EDT) Iron 79 30 - 160 mcg/dL [facility] Total Iron Binding Capacity 229 228 - 428 mcg/dL [facility] Percent Iron Saturation 34 15 - 50 % [facility] Unsaturated Iron Binding 150 ug/dL [facility] Blood Venous blood specimen / Unknown 06/20/2025 8:10 AM EDT 06/20/2025 11:03 AM EDT us Khadijah Woodall MD LAB BLOOD ORDERAB LES Final Result [facility] [address] [place] [address] [phone] * Hepatitis B surface antigen, EIA (06/20/2025 8:10 AM EDT) Hepatitis B Surface Ag Negative Negative [facility] Blood Venous blood specimen / Unknown 06/20/2025 8:10 AM EDT 06/20/2025 11:03 AM EDT Khadijah Woodall MD LAB BLOOD ORDERAB LES Final Result Performing Organization Address City/[facility]/ZIP Co de Phone Number [facility] [address] [place] [phone] * Hepatitis B Core Antibody, Total (06/20/2025 8:10 AM EDT) Pathologist [facility] Hepatitis B Core Antibody Nonreactive Nonreactive [facility] Blood Venous blood specimen / Unknown 06/20/2025 8:10 AM EDT 06/20/2025 11:03 AM EDT Khadijah Woodall MD LAB BLOOD ORDERAB LES Final Result Performing Organization Address [facility] de Phone Number [facility] [address] [place] [phone] * HIV-1/2 Antigen and Antibodies, Fourth Generation, with Reflexes (06/20/2025 8:10 AM EDT) Pathologist [facility] HIV AB/AG Nonreactive Nonreactive [facility] Comment:HIV-1 p24 Ag and/or HIV-1/HIV-2 Ab not detected.A test result that is nonreactive does not exclude thepossibility of exposure to or infection with HIV-1 and/orHIV-2. Nonreactive results in this assay for individualswith prior exposure to HIV-1 and/or HIV-2 may be due toantigen and antibody levels that are below the limit ofdetection of this assay.The [employer] HIV Ag/Ab Combo assay result andsupplemental assay results should be interpreted inconjunction with the patient's clinical presentation,history and other laboratory results. If the results areinconsistent with clinical evidence, additional testing issuggested to confirm the result. Blood Venous blood specimen / Unknown 06/20/2025 8:10 AM EDT 06/20/2025 11:03 AM EDT us Khadijah Woodall MD LAB BLOOD ORDERAB LES Final Result Performing Organization Address City/[facility]/ZIP Co de Phone Number [facility] [address] [place] [phone] * Hepatitis B Surface Antibody, Qualitative (06/20/2025 8:10 AM EDT) Pathologist [facility] ~Hepatitis B Surface Antibody REACTIVE Nonreactive [facility] Comment:REACTIVE: > 11.99 mI U/mL Blood Venous blood specimen / Unknown 06/20/2025 8:10 AM EDT 06/20/2025 11:03 AM EDT us Khadijah Woodall MD LAB BLOOD ORDERAB LES Final Result Performing Organization Address [facility] [[email or web address]] Co de Phone Number [facility] [address] [place] [phone] * (ABNORMAL) CBC (06/20/2025 8:10 AM EDT) Pathologist [facility] White Blood Count 7.8 4.8 - 10.8 X10*3/uL [facility] Red Blood Count 3.93(L) 4.20 - 5.50 X10*6/uL [facility] Hemoglobin 12.4 12.0 - 16.0 g/dl [facility] Hematocrit 36.9(L) 37.0 - 47.0 % [facility] Mean Corpuscular Volume 93.9 80.0 - 98.0 fL [facility] Mean Corpuscular Hemoglobin 31.6 27.0 - 33.0 pg [facility] Mean Corpuscular HGB Conc 33.6 31.0 - 35.0 g/dl [facility] Red Cell Distribution Width 11.7 11.0 - 16.0 % [facility] Platelet Count 251 160 - 400 X10*3/uL [facility] Mean Platelet Volume 10.4 9.4 - 12.3 fL [facility] NRBC Pct Auto 0.0 0.0 - 0.2 /100WBC [facility] NRBC Abs Auto 0.000 0.0 - 0.012 X10*3/uL [facility] Blood Venous blood specimen / Unknown 06/20/2025 8:10 AM EDT 06/20/2025 11:03 AM EDT Khadijah Woodall MD LAB BLOOD ORDERAB LES Final Result Performing Organization Address [facility]/ZIP Co de Phone Number [facility] [address] [place] [phone] * Hemoglobin A1c (06/20/2025 8:10 AM EDT) Hemoglobin A1c 5.7 <6.0 % [facility] Comment:Hemoglobin A1C Refer ence Range Adults: 4.8 - 6.0 % Non diabetic: < 6.0 % Goal: < 7.0 %Additional Action Suggested: > 8.0 %Note: Hemoglobin A1c results are invalid for patients with abnormal amounts of HbF. Blood transfusions may impact the HbA1c concentration in the patient sample. Estimated Average Glucose 117 mg/dL [facility] Comment:eAG = Estimated ave rage glucose which is %A1C expressed asaverage glucose, using the formula of the X2E-UclhulqFayiztn Glucose study (ADAG), Diabetes Care, Vol.31,#8,2007 Blood Venous blood specimen / Unknown 06/20/2025 8:10 AM EDT 06/20/2025 11:03 AM EDT us Khadijah Woodall MD LAB BLOOD ORDERAB LES Final Result Performing Organization Address [facility]/ZIP Co de Phone Number [facility] [address] [place] [phone] * (ABNORMAL) Ferritin (06/20/2025 8:10 AM EDT) Ferritin 283(H) 10 - 250 ng/mL [facility] Blood Venous blood specimen / Unknown 06/20/2025 8:10 AM EDT 06/20/2025 11:03 AM EDT us Khadijah Woodall MD LAB BLOOD ORDERAB LES Final Result [facility] [address] [place] [phone] * (ABNORMAL) Lipid Panel, Standard (06/20/2025 8:10 AM EDT) Triglycerides 279(H) <150 mg/dL [facility] Comment:Desirable Triglyceri de: less than 150 mg/dLBorderline High Triglyceride 150-199 mg/dLHigh Triglyceride: 200-499 mg/dLVery High Triglyceride: greater than or equal to 5OO mg/dL Cholesterol 209(H) <200 mg/dL [facility] Comment:Desirable Cholestero l: less than 200 mg/dLBorderline High Cholesterol: 200-239 mg/dLHigh Cholesterol: greater than 239 mg/dL LDL Cholesterol Calculated 120(H) <100 mg/dL [facility] Comment:Desirable LDL: less than 100 mg/dLNear Optimal/Above Optimal LDL: 110- 129 mg/dLBorderline High LDL: 130-159 mg/dLHigh LDL: 160-189 mg/dLVery High LDL: greater than or equal to 190 mg/dL HDL Cholesterol 34(L) >40 mg/dL [facility] Comment:Desirable HDL: great er than 40 mg/dL Note: This HDL assay may give artificially low results in patients with liver disease. Blood Venous blood specimen / Unknown 06/20/2025 8:10 AM EDT 06/20/2025 11:03 AM EDT us Khadijah Woodall MD LAB BLOOD ORDERAB LES Final Result Performing Organization Address City/[facility]/ZIP Co de Phone Number [facility] [address] [place] [phone] * (ABNORMAL) Comprehensive Metabolic Panel (06/20/2025 8:10 AM EDT) Sodium 142 135 - 145 mmol/L [facility] Potassium 3.6 3.3 - 5.1 mmol/L [facility] Chloride 105 96 - 108 mmol/L [facility] Carbon Dioxide 29 22 - 29 mmol/L [facility] Anion Gap 12 12 - 20 [facility] Urea Nitrogen (BUN) 20(H) 9 - 16 mg/dL [facility] Creatinine, Serum 0.92 0.5 - 1.4 mg/dL [facility] Estimated Glomerular Filt Rate >60 [facility] Comment:Chronic Kidney Disea se: Estimated GFR < 60 mL/min/1.54n8Ewnegb Kidney Disease: Estimated GFR < 15 mL/min/1.73m2 Glucose 88 60 - 115 mg/dL [facility] Calcium 9.5 8.4 - 10.2 mg/dL [facility] Bilirubin, Total 0.4 0.0 - 1.0 mg/dL [facility] Aspartate Amino Transferase 29 5 - 31 U/L [facility] Alanine Aminotransferase 19 0 - 31 U/L [facility] Total Protein 7.6 6.5 - 8.0 g/dL [facility] Albumin Level 4.7 3.5 - 5.0 g/dL [facility] Alkaline Phosphatase 86 39 - 117 U/L [facility] Blood Venous blood specimen / Unknown 06/20/2025 8:10 AM EDT 06/20/2025 11:03 AM EDT us Khadijah Woodall MD LAB BLOOD ORDERAB LES Final Result Performing Organization Address [facility]/ZIP Co de Phone Number [facility] [address] [place] [address] [phone] * ThinPrep Imaging Pap and HPV mRNA E6/E7 with Reflex to HPV 16,18/45 (07/06/2024 2:54 PM EDT) HPV 16 RNA [facility] HPV 18/45 RNA [facility] HPV nRNA E6/E7 Not Detected Not Detected [facility] Comment:Methodology: Transcr iption-Mediated AmplificationThis assay detects E6/E7 viral messenger RNA (mRNA) from 14high-risk HPV types (16,18,31,33,35,39,45,51,52,56,58,59,66,68).Cervical sources are required for HPV testing.If a vaginal source from a patient who has had atotal hysterectomy with removal of cervix wassubmitted, please contact the testing laboratoryfor alternative testing options.For additional information, please refer [email or web address](This link if provided for information/educational purposes only.)THIS TEST WAS PERFORMED AT:[facility] [address] [phone] ROUSSEAU MD SOURCE: SEE NOTE [facility] Comment:None given Report Status: [facility] Clinical Information: SEE NOTE [facility] Comment:None given LMP: SEE [facility] Comment:NONE GIVEN Prev. PAP: SEE NOTE [facility] Comment:NONE GIVEN Prev. BX: SEE NOTE [facility] Comment:NONE GIVEN Statement Of Adequacy: SEE [facility] Comment:Satisfactory for sherron luation.Endocervical/transformation zone componentpresent. General Categorization: [facility] Interpretation/Result: SEE NOTE [facility] Comment:Cytology Results: Ne gative for intraepitheliallesion or malignancy. Cytology Comment SEE NOTE [facility] Comment:This Pap test has be en evaluated with computerassisted technology. Mixer And Blender: SEE NOTE [facility] Comment:CUMMINS, CT(ASCP)CT scre ening location: [address] [address] Review [employer] And Blender: [facility] Pathologist [facility] PAP Infection TNP [facility] See Note SEE NOTE [facility] Comment:EXPLANATORY NOTE:The Pap is a screening test for cervical cancer. It isnot a diagnostic test and is subject to false negativeand false positive results. It is most reliable when asatisfactory sample, regularly obtained, is submittedwith relevant clinical findings and history, and whenthe Pap result is evaluated along with historic andcurrent clinical information. 07/06/2024 2:54 PM EDT 07/07/2024 11:46 AM EDT Narrative [facility] - 07/12/2024 1:14 PM EDT SEE SCANNED RESULTS IN EMR us Generic External Data Provider LAB PATHOLOGY ORD ERABLES Final Result [facility] [address] [place] [phone] * Fecal immunochemical test x1 (FIT) (06/21/2022 12:10 PM EDT) FIT Date 1 06/21/2022 [facility] Comment: BOTH SPECEIMENS SUBMITTED WERE TIMED AND DATED FOR 06/21/2022 AT 2:20PM FIT Date 2 06/21/2022 [facility] FIT1 NEGATIVE NEGATIVE [facility] FIT2 NEGATIVE NEGATIVE [facility] 06/21/2022 12:1 0 PM EDT Historical Provider HISTORICAL/NON ORDERABLE LABS Final Result [facility] [address] [place] [address], * Hm Colonoscopy (05/12/2018 11:57 AM EDT) Historical Provider HEALTH MAINTENANCE Final Result from Last 3 Months or Most Recently Relevant to Health Maintenance Insurance Care Teams Hold Worker Relationship Specialty Start Date End Date Khadijah Mccarty MD [address] [place] [phone] PCP - General Internal Medicine 08/05/23
== END 2025-06-30 14:00 | disposition home or self-care (01) ==
PROVIDERS: PCP Student in an Organized Health Care Education/Training Program; Visit Provider Nurse Practitioner Family
DX: R00.2 Palpitations (principal); I47.19 Other supraventricular tachycardia; I10 Essential (primary) hypertension
CPT/HCPCS: 93010; 99213

== ENCOUNTER → 2025-06-30 13:18 | Outpatient (BNVA) | payer MEDICAID, SELFPAY | PROVIDERS: PCP Student in an Organized Health Care Education/Training Program; Visit Provider Nurse Practitioner Family | DX: R00.2 Palpitations (principal); I10 Essential (primary) hypertension; I47.19 Other supraventricular tachycardia | CPT/HCPCS: 93005; 99212 ==